=== PATIENT | female | born 1960 | race Caucasian/White ===

== ENCOUNTER 2021-07-21 12:50 | Inpatient (IN) | payer MEDICARE, MEDICAID ==
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
[2021-07-21 13:37] LABS: AMPHETAMINES,URINE NEGATIVE (NEGATIVE); BARBITURATES,URINE NEGATIVE (NEGATIVE); BENZODIAZEPINE,URINE POSITIVE (NEGATIVE); MDMA (ECSTASY), URINE NEGATIVE (NEGATIVE); METHADONE,URINE POSITIVE (NEGATIVE); METHAMPHETAMINES,URINE NEGATIVE (NEGATIVE); OPIATES,URINE POSITIVE (NEGATIVE); OXYCODONE,URINE NEGATIVE (NEGATIVE); PHENCYCLIDINE,URINE NEGATIVE (NEGATIVE); TCA,URINE NEGATIVE (NEGATIVE)
[2021-07-21] MEDS ORDERED: Sodium Chloride 0.9% 1,000 ML IV ONE (13:40)
[2021-07-21] MEDS ORDERED: cloNIDine 0.1 MG Tab PO ONE (13:47)
[2021-07-21] MEDS ORDERED: Famotidine 20 MG/2 ML SDV IVPUSH ONE (13:47)
[2021-07-21] MEDS ORDERED: Dicyclomine 10 MG Cap PO ONE (13:49)
[2021-07-21] MEDS ORDERED: Orphenadrine 60 MG/2 ML Inj IM ONE (13:49)
[2021-07-21 14:14] LABS: PTT,PARTIAL THROMBOPLSTIN TIME 25.9 SEC (22.0-34.0)
[2021-07-21 14:22] LABS: ACETAMINOPHEN 28 ug/mL (10-30 (Therapeutic)); ANION GAP 14.1 mEq/L (7-13); CHLORIDE,CL 96 mmol/L (98-107); SODIUM,NA 134 mmol/L (136-145)
[2021-07-21] MEDS ORDERED: Sucralfate 1 GM Tab PO ONE (17:00)
[2021-07-21] MEDS ORDERED: Aluminum Hydroxide/Magnesium Hydroxide/Simethicone Susp 30 ML Cup PO ONE (17:00)
[2021-07-21] MEDS ORDERED: Pantoprazole 40 MG Vial IVPUSH ONE (17:01)
[2021-07-21] MEDS ORDERED: Acetaminophen/HYDROcodone 325-5 MG Tab PO ONE (19:19)
[2021-07-21] MEDS ORDERED: LORazepam 2 MG/ML SDV IVPUSH ONE (19:19)
[2021-07-21] MEDS ORDERED: Acetaminophen 325 MG Tab PO PRN (20:09)
[2021-07-21] MEDS ORDERED: Promethazine 25 MG Tab PO PRN (20:13)
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
[2021-07-21] MEDS: ClonazePAM 0.5 MG Tab PO SCH (21:01)
[2021-07-21] MEDS: cloNIDine 0.1 MG Tab PO SCH (21:01)
[2021-07-21] MEDS: Sodium Chloride 0.9% 1,000 ML IV SCH (21:02)
[2021-07-21] MEDS: Ondansetron 4 MG/2 ML SDV IVPUSH PRN (21:02)
[2021-07-21] MEDS: Ketorolac 30 MG/ML SDV IVPUSH PRN (21:02)
[2021-07-21] MEDS ORDERED: ALPRAZolam 0.5 MG Tab PO ONE (21:56)
[2021-07-22] MEDS: Acetaminophen/oxyCODONE 325-5 MG Tab PO PRN ×2 (00:09→08:03)
[2021-07-22] MEDS: cloNIDine 0.1 MG Tab PO SCH (03:53)
[2021-07-22] MEDS: ClonazePAM 0.5 MG Tab PO SCH (03:54)
[2021-07-22] MEDS: Ketorolac 30 MG/ML SDV IVPUSH PRN ×2 (03:54→09:58)
[2021-07-22] MEDS: Sodium Chloride 0.9% 1,000 ML IV SCH (03:54)
[2021-07-22] MEDS ORDERED: Pantoprazole 40 MG Tab.CR PO SCH (06:00)
[2021-07-22] MEDS ORDERED: Nicotine 7 MG/24 Hr Patch TRDERM SCH (09:00)
[2021-07-22] MEDS ORDERED: Enoxaparin 40 MG/0.4 ML Syringe SUBCUT SCH (09:00)
[2021-07-22] MEDS: Ondansetron 4 MG/2 ML SDV IVPUSH PRN (09:55)
--- NOTE | 2021-07-22 10:29 | PCM.DCSUM1 ---
Discharge Summary - Hospital Course Free Text/Narrative:: Pt brought to ER for suicidal, making multiple threats of killing herself by opiate and benzodiazepine overdose. Pt has also began having hallucinations recently. Pt has a 20 year history of opiate dependence, on methadone ( 40 mg daily? ) for many years. She also has chronically been on Xanax 1 mg BID, and Restoril at night. Pt states that she quit taking Methadone about 10 days and she start to have withdrawal symptoms afterwards. Pt admits to opiate withdrawal symptoms of sweats, nausea, burning abdominal pain, and insomnia. As per the ER note, Pt needs medical detox from opiates, and benzodiazepines prior to further mental health evaluation. Pt was legally detained [facility]. Pt was treated symptomatically overnight and she is feeling much better today. She was cleared by mental health today and pt said that she is not interested to go for detox because she is going to get her narcotic pain medication ( Hydrocodone, Xanax and Restoril) from her provider. Pt left AMA. - Discharge Data Discharge Date: 07/22/21 Discharge Disposition: Against Medical Advice 07 Condition: Good - Referral to Home Health Primary Care Physician: PCP None - Patient Summary/Data Consults: Consultations 07/21/21 13:08 Consult to Behavioral Health [Behavioral Health Evaluation] [CONS] Routine - Discharge Plan *PRESCRIPTION DRUG MONITORING PROGRAM REVIEWED*: No *COPY OF PRESCRIPTION DRUG MONITORING REPORT IN PATIENT PARMJIT: No Home Medications: Home Meds Ibuprofen 200 mg PO Q6H 07/21/21 [History] Acetaminophen [Tylenol] 650 mg PO Q4H PRN tablet 07/22/21 [Rx] Nicotine [Habitrol] 7 mg TRDERM DAILY patch 07/22/21 [Rx] Forms: ED Department Discharge Referrals: PCP,None [Primary Care Provider] - - Discharge Summary/Plan Comment DC Time >30 min.: No Total # of Minutes for Discharge Time: 25 min - General Info Date of Service: 07/22/21 Functional Status: Reports: Pain Controlled, Tolerating Diet, Ambulating - Review of Systems General: Denies: Fever Pulmonary: Denies: Shortness of Breath Cardiovascular: Denies: Chest Pain Gastrointestinal: Denies: Abdominal Pain, Nausea, Vomiting Genitourinary: Denies: Dysuria Skin: Reports: No Symptoms Neurological: Reports: No Symptoms Psychiatric: Reports: No Symptoms - Patient Data Vitals - Most Recent: Last Vital Signs Temp 98.4 F 07/22/21 08:00 Pulse 77 07/22/21 08:00 Resp 16 07/22/21 08:00 BP 154/73 H 07/22/21 08:00 Pulse Ox 97 07/22/21 08:00 Weight - Most Recent: 111 lb 3.2 oz I&O - Last 24 hours: Intake & Output 07/21/21 07/22/21 07/22/21 22:59 06:59 14:59 Intake Total 1000 Balance 1000 Lab Results - Last 24 hrs: Laboratory Results - last 24 hr 07/21/21 07/21/21 07/21/21 Range/Units 12:33 13:13 13:13 WBC (5.0-10.0) 10^3/uL RBC (4.2-5.4) 10^6/uL Hgb (12.0-16.0) g/dL Hct (37.0-47.0) % MCV (80-100) fL MCH (27.0-34.0) pg MCHC (33.0-35.0) g/dL Plt Count (150-450) 10^3/uL Neut % (Auto) (42.2-75.2) % Lymph % (Auto) (20.5-50.1) % [place] % (Auto) (2-8) % Eos % (Auto) (1.0-3.0) % Baso % (Auto) (0.0-1.0) % PT (9.0-12.0) SEC INR (0.9-1.2) APTT (22.0-34.0) SEC Sodium (136-145) mmol/L Potassium (3.5-5.1) mmol/L Chloride (98-107) mmol/L Carbon Dioxide (21-32) mmol/L Anion Gap (7-13) mEq/L BUN (7-18) mg/dL Creatinine (0.55-1.02) mg/dL Est Cr Clr Drug Dosing mL/min Estimated GFR (MDRD) BUN/Creatinine Ratio (No establ ref range) Glucose (70-99) mg/dL Calcium (8.5-10.1) mg/dL Magnesium (1.8-2.4) mg/dL Total Bilirubin (0.2-1.0) mg/dL AST (15-37) U/L ALT (14-59) U/L Alkaline Phosphatase (46-116) U/L Total Protein (6.4-8.2) g/dL Albumin (3.4-5.0) g/dL Globulin Albumin/Globulin Ratio Amylase (25-115) U/L Lipase (73-393) U/L TSH, Ultra Sensitive (0.36-3.74) uIU/mL Urine Color Yellow (YELLOW) Urine Appearance Clear (CLEAR) Urine pH 5.5 (5.0-9.0) Ur Specific [place] 1.015 (1.005-1.030) Urine Protein Negative (NEGATIVE) Urine Glucose (UA) Negative (NEGATIVE) Urine Ketones Negative (NEGATIVE) Urine Occult Blood Negative (NEGATIVE) Urine Nitrite Negative (NEGATIVE) Urine Bilirubin Negative (NEGATIVE) Urine Urobilinogen 0.2 (0.2-1.0) mg/dL Ur Leukocyte Esterase Trace H (NEGATIVE) Urine RBC Not seen (0-5) /HPF Urine WBC 0-5 (0-5/HPF) /HPF Ur Epithelial Cells Few (NOT SEEN) /HPF Urine Bacteria Rare (0-FEW/HPF) /HPF Salicylates (2.8-20(Therapeutic)) mg/dL Urine Opiates Screen Positive H (NEGATIVE) Ur Oxycodone Screen Negative (NEGATIVE) Urine Methadone Screen Positive H (NEGATIVE) Acetaminophen (10-30 (Therapeutic)) ug/mL Ur Barbiturates Screen Negative (NEGATIVE) U Tricyclic Antidepress Negative (NEGATIVE) Ur Phencyclidine Scrn Negative (NEGATIVE) Ur Amphetamine Screen Negative (NEGATIVE) U Methamphetamines Scrn Negative (NEGATIVE) Urine MDMA Screen Negative (NEGATIVE) U Benzodiazepines Scrn Positive H (NEGATIVE) Urine Cocaine Screen Negative (NEGATIVE) U Marijuana (THC) Screen Negative (NEGATIVE) Ethyl Alcohol (0) mg/dL SARS-CoV-2 RNA (MERLY) Negative (NEGATIVE) 07/21/21 07/21/21 07/21/21 Range/Units 13:22 13:45 13:45 WBC 8.4 (5.0-10.0) 10^3/uL RBC 5.69 H (4.2-5.4) 10^6/uL Hgb 18.3 H (12.0-16.0) g/dL Hct 54.3 H (37.0-47.0) % MCV 95.4 (80-100) fL MCH 32.2 (27.0-34.0) pg MCHC 33.7 (33.0-35.0) g/dL Plt Count 179 (150-450) 10^3/uL Neut % (Auto) 61.7 (42.2-75.2) % Lymph % (Auto) 23.7 (20.5-50.1) % [place] % (Auto) 10.9 H (2-8) % Eos % (Auto) 3.2 H (1.0-3.0) % Baso % (Auto) 0.5 (0.0-1.0) % PT 10.1 (9.0-12.0) SEC INR 1.0 (0.9-1.2) APTT 25.9 (22.0-34.0) SEC Sodium 134 L (136-145) mmol/L Potassium 4.1 (3.5-5.1) mmol/L Chloride 96 L (98-107) mmol/L Carbon Dioxide 28 (21-32) mmol/L Anion Gap 14.1 H (7-13) mEq/L BUN 14 (7-18) mg/dL Creatinine 0.46 L (0.55-1.02) mg/dL Est Cr Clr Drug Dosing 94.59 mL/min Estimated GFR (MDRD) > 60 BUN/Creatinine Ratio 30.4 (No establ ref range) Glucose 81 (70-99) mg/dL Calcium 9.1 (8.5-10.1) mg/dL Magnesium 1.9 (1.8-2.4) mg/dL Total Bilirubin 0.4 (0.2-1.0) mg/dL AST 17 (15-37) U/L ALT 48 (14-59) U/L Alkaline Phosphatase 72 (46-116) U/L Total Protein 7.0 (6.4-8.2) g/dL Albumin 4.2 (3.4-5.0) g/dL Globulin 2.8 Albumin/Globulin Ratio 1.5 Amylase 61 (25-115) U/L Lipase 71 L (73-393) U/L TSH, Ultra Sensitive 2.47 (0.36-3.74) uIU/mL Urine Color (YELLOW) Urine Appearance (CLEAR) Urine pH (5.0-9.0) Ur Specific [place] (1.005-1.030) Urine Protein (NEGATIVE) Urine Glucose (UA) (NEGATIVE) Urine Ketones (NEGATIVE) Urine Occult Blood (NEGATIVE) Urine Nitrite (NEGATIVE) Urine Bilirubin (NEGATIVE) Urine Urobilinogen (0.2-1.0) mg/dL Ur Leukocyte Esterase (NEGATIVE) Urine RBC (0-5) /HPF Urine WBC (0-5/HPF) /HPF Ur Epithelial Cells (NOT SEEN) /HPF Urine Bacteria (0-FEW/HPF) /HPF Salicylates (2.8-20(Therapeutic)) mg/dL Urine Opiates Screen (NEGATIVE) Ur Oxycodone Screen (NEGATIVE) Urine Methadone Screen (NEGATIVE) Acetaminophen 28 (10-30 (Therapeutic)) ug/mL Ur Barbiturates Screen (NEGATIVE) U Tricyclic Antidepress (NEGATIVE) Ur Phencyclidine Scrn (NEGATIVE) Ur Amphetamine Screen (NEGATIVE) U Methamphetamines Scrn (NEGATIVE) Urine MDMA Screen (NEGATIVE) U Benzodiazepines Scrn (NEGATIVE) Urine Cocaine Screen (NEGATIVE) U Marijuana (THC) Screen (NEGATIVE) Ethyl Alcohol < 3 (0) mg/dL SARS-CoV-2 RNA (MERLY) (NEGATIVE) 07/21/21 Range/Units 13:45 WBC (5.0-10.0) 10^3/uL RBC (4.2-5.4) 10^6/uL Hgb (12.0-16.0) g/dL Hct (37.0-47.0) % MCV (80-100) fL MCH (27.0-34.0) pg MCHC (33.0-35.0) g/dL Plt Count (150-450) 10^3/uL Neut % (Auto) (42.2-75.2) % Lymph % (Auto) (20.5-50.1) % [place] % (Auto) (2-8) % Eos % (Auto) (1.0-3.0) % Baso % (Auto) (0.0-1.0) % PT (9.0-12.0) SEC INR (0.9-1.2) APTT (22.0-34.0) SEC Sodium (136-145) mmol/L Potassium (3.5-5.1) mmol/L Chloride (98-107) mmol/L Carbon Dioxide (21-32) mmol/L Anion Gap (7-13) mEq/L BUN (7-18) mg/dL Creatinine (0.55-1.02) mg/dL Est Cr Clr Drug Dosing mL/min Estimated GFR (MDRD) BUN/Creatinine Ratio (No establ ref range) Glucose (70-99) mg/dL Calcium (8.5-10.1) mg/dL Magnesium (1.8-2.4) mg/dL Total Bilirubin (0.2-1.0) mg/dL AST (15-37) U/L ALT (14-59) U/L Alkaline Phosphatase (46-116) U/L Total Protein (6.4-8.2) g/dL Albumin (3.4-5.0) g/dL Globulin Albumin/Globulin Ratio Amylase (25-115) U/L Lipase (73-393) U/L TSH, Ultra Sensitive (0.36-3.74) uIU/mL Urine Color (YELLOW) Urine Appearance (CLEAR) Urine pH (5.0-9.0) Ur Specific [place] (1.005-1.030) Urine Protein (NEGATIVE) Urine Glucose (UA) (NEGATIVE) Urine Ketones (NEGATIVE) Urine Occult Blood (NEGATIVE) Urine Nitrite (NEGATIVE) Urine Bilirubin (NEGATIVE) Urine Urobilinogen (0.2-1.0) mg/dL Ur Leukocyte Esterase (NEGATIVE) Urine RBC (0-5) /HPF Urine WBC (0-5/HPF) /HPF Ur Epithelial Cells (NOT SEEN) /HPF Urine Bacteria (0-FEW/HPF) /HPF Salicylates 4.7 (2.8-20(Therapeutic)) mg/dL Urine Opiates Screen (NEGATIVE) Ur Oxycodone Screen (NEGATIVE) Urine Methadone Screen (NEGATIVE) Acetaminophen (10-30 (Therapeutic)) ug/mL Ur Barbiturates Screen (NEGATIVE) U Tricyclic Antidepress (NEGATIVE) Ur Phencyclidine Scrn (NEGATIVE) Ur Amphetamine Screen (NEGATIVE) U Methamphetamines Scrn (NEGATIVE) Urine MDMA Screen (NEGATIVE) U Benzodiazepines Scrn (NEGATIVE) Urine Cocaine Screen (NEGATIVE) U Marijuana (THC) Screen (NEGATIVE) Ethyl Alcohol (0) mg/dL SARS-CoV-2 RNA (MERLY) (NEGATIVE) JARETH Results - Last 24 hrs: Microbiology 07/21/21 13:13 Urine Culture - Preliminary Urine, Clean Catch MIXED POSITIVE YASMEEN DAY 1 Med Orders - Current: Current Medications Acetaminophen (Acetaminophen 325 Mg Tab) 650 mg PO Q4H PRN PRN Reason: Pain (Mild 1-3)/fever Clonazepam (Clonazepam 0.5 Mg Tab) 0.5 mg PO Q8H [facility] Last Admin: 07/22/21 03:54 Dose: 0.5 mg Documented by: Clonidine HCl (Clonidine 0.1 Mg Tab) 0.1 mg PO Q8H [facility] Last Admin: 07/22/21 03:53 Dose: 0.1 mg Documented by: Enoxaparin Sodium (Enoxaparin 40 Mg/0.4 Ml Syringe) 40 mg SUBCUT DAILY [facility] Last Admin: 07/22/21 09:37 Dose: Not Given Documented by: Ketorolac Tromethamine (Ketorolac 30 Mg/Ml Sdv) 30 mg IVPUSH Q6H PRN PRN Reason: Pain Stop: 07/26/21 20:13 Last Admin: 07/22/21 09:58 Dose: 30 mg Documented by: Miscellaneous Information (Remove Nicotine 7mg Patch) 1 ea TRDERM DAILY [facility] Nicotine (Nicotine 7 Mg/24 Hr Patch) 7 mg TRDERM DAILY [facility] Last Admin: 07/22/21 09:37 Dose: Not Given Documented by: Ondansetron HCl (Ondansetron 4 Mg/2 Ml Sdv) 4 mg IVPUSH Q6H PRN PRN Reason: Nausea/Vomiting Last Admin: 07/22/21 09:55 Dose: 4 mg Documented by: Oxycodone/Acetaminophen (Acetaminophen/Oxycodone 325-5 Mg Tab) 1 tab PO Q4H PRN PRN Reason: Pain (moderate 4-6) Last Admin: 07/22/21 08:03 Dose: 1 tab Documented by: Pantoprazole Sodium (Pantoprazole 40 Mg Tab.Cr) 40 mg PO BIDAC [facility] Last Admin: 07/22/21 05:42 Dose: 40 mg Documented by: Promethazine HCl (Promethazine 25 Mg Tab) 25 mg PO Q6H PRN PRN Reason: Nausea/Vomiting Discontinued Medications Hydrocodone Bitart/Acetaminophen (Acetaminophen/Hydrocodone 325-5 Mg Tab) 1 tab PO ONETIME ONE Stop: 07/21/21 19:20 Last Admin: 07/21/21 19:33 Dose: 1 tab Documented by: Al Hydroxide/Mg Hydroxide (Aluminum Hydroxide/Magnesium Hydroxide/Simethicone Susp 30 Ml Cup) 30 ml PO ONETIME ONE Stop: 07/21/21 17:01 Last Admin: 07/21/21 17:21 Dose: 30 ml Documented by: Alprazolam (Alprazolam 0.5 Mg Tab) 1 mg PO ONETIME ONE Stop: 07/21/21 21:57 Last Admin: 07/21/21 22:04 Dose: 1 mg Documented by: Clonidine HCl (Clonidine 0.1 Mg Tab) 0.1 mg PO ONETIME ONE Stop: 07/21/21 13:48 Last Admin: 07/21/21 14:18 Dose: 0.1 mg Documented by: Dicyclomine HCl (Dicyclomine 10 Mg Cap) 20 mg PO ONETIME ONE Stop: 07/21/21 13:50 Last Admin: 07/21/21 14:26 Dose: 20 mg Documented by: Famotidine (Famotidine 20 Mg/2 Ml Sdv) 20 mg IVPUSH ONETIME ONE Stop: 07/21/21 13:48 Last Admin: 07/21/21 14:09 Dose: 20 mg Documented by: Sodium Chloride (Normal Saline) 1,000 mls @ 999 mls/hr IV .BOLUS ONE Stop: 07/21/21 14:40 Last Admin: 07/21/21 14:08 Dose: 999 mls/hr Documented by: Sodium Chloride (Normal Saline) 1,000 mls @ 125 mls/hr IV ASDIRECTED AILYN Last Infusion: 07/22/21 09:38 Dose: 0 mls/hr Documented by: Lorazepam (Lorazepam 2 Mg/Ml Sdv) 1 mg IVPUSH ONETIME ONE Stop: 07/21/21 19:20 Last Admin: 07/21/21 19:33 Dose: 1 mg Documented by: Orphenadrine Citrate (Orphenadrine 60 Mg/2 Ml Inj) 60 mg IM ONETIME ONE Stop: 07/21/21 13:50 Last Admin: 07/21/21 14:11 Dose: 60 mg Documented by: Pantoprazole Sodium (Pantoprazole 40 Mg Vial) 40 mg IVPUSH ONETIME ONE Stop: 07/21/21 17:02 Last Admin: 07/21/21 17:14 Dose: 40 mg Documented by: Sucralfate (Sucralfate 1 Gm Tab) 1 gm PO ONETIME ONE Stop: 07/21/21 17:01 Last Admin: 07/21/21 17:40 Dose: 1 gm Documented by: - Exam Quality Assessment: Denies: Supplemental Oxygen General: Reports: Alert, Oriented, Cooperative HEENT: Reports: EOMI Lungs: Reports: Normal Respiratory Effort Cardiovascular: Reports: Regular Rhythm, No Murmurs GI/Abdominal Exam: Soft, Non-Tender Extremities: Normal Inspection, No Pedal Edema Skin: Reports: Warm, Dry Wound/Incisions: Reports: Healing Well Neurological: Reports: No New Focal Deficit Psy/Mental Status: Reports: Alert, Normal Affect
== END 2021-07-22 10:41 | disposition left against medical advice (07) | DRG 894 ==
LOC: DL.ED 12:50 → DL.MS 16:55 → UNDOADMIN 16:55 → DL.ED 17:24 → DL.MS 20:09
PROVIDERS: ADMIT Internal Medicine; ATTEND Internal Medicine
DX: F11.222 Opioid dependence with intoxication with perceptual disturbance (principal); F11.23 Opioid dependence with withdrawal; R45.851 Suicidal ideations; F32.9 Major depressive disorder, single episode, unspecified; R10.13 Epigastric pain; F13.20 Sedative, hypnotic or anxiolytic dependence, uncomplicated; F15.23 Other stimulant dependence with withdrawal; Z20.822 Contact with and (suspected) exposure to COVID-19; H54.7 Unspecified visual loss; K21.9 Gastro-esophageal reflux disease without esophagitis; J44.9 Chronic obstructive pulmonary disease, unspecified; M19.90 Unspecified osteoarthritis, unspecified site; M54.9 Dorsalgia, unspecified; G89.29 Other chronic pain; F41.9 Anxiety disorder, unspecified; F32.A Depression, unspecified; F17.200 Nicotine dependence, unspecified, uncomplicated; Z90.49 Acquired absence of other specified parts of digestive tract; Z88.6 Allergy status to analgesic agent; Z79.899 Other long term (current) drug therapy; Z88.8 Allergy status to other drugs, medicaments and biological substances
CPT/HCPCS: 36415; 80053; 80143; 80179; 80305-QW; 80307; 81001; 82150; 83690; 83735; 84443; 85025; 85610; 85730; 87086; 96372; 96374; 99285-25; A9270-GY; C9113; J1885; J2060; J2360; J2405; J3490; J7030; U0002

== ENCOUNTER 2021-07-26 11:00 | Emergency (ER) | payer MEDICARE ==
[2021-07-26] MEDS ORDERED: Ketorolac 30 MG/ML SDV IM ONE (11:29)
[2021-07-26] MEDS ORDERED: Promethazine 25 MG/ML SDV IM ONE (11:29)
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
[2021-07-26] MEDS ORDERED: Iopamidol 612 MG/ML 100 ML Bottle IVPUSH ONE (11:47)
[2021-07-26 12:43] LABS: AMPHETAMINES,URINE NEGATIVE (NEGATIVE); BARBITURATES,URINE NEGATIVE (NEGATIVE); BENZODIAZEPINE,URINE POSITIVE (NEGATIVE); MDMA (ECSTASY), URINE NEGATIVE (NEGATIVE); METHADONE,URINE NEGATIVE (NEGATIVE); METHAMPHETAMINES,URINE NEGATIVE (NEGATIVE); OPIATES,URINE NEGATIVE (NEGATIVE); OXYCODONE,URINE NEGATIVE (NEGATIVE); PHENCYCLIDINE,URINE NEGATIVE (NEGATIVE); TCA,URINE NEGATIVE (NEGATIVE)
[2021-07-26 12:45] LABS: ANION GAP 15.7 mEq/L (7-13); CHLORIDE,CL 96 mmol/L (98-107); SODIUM,NA 137 mmol/L (136-145)
--- NOTE | 2021-07-26 13:05 | CT ---
PROCEDURE INFORMATION: Exam: CT Abdomen And Pelvis With Contrast Exam date and time: 07/26/2021 12:00 PM Age: 60 years old Clinical indication: Nausea; Abdominal pain; Generalized; Prior surgery; Surgery date: 6+ months; Surgery type: Appendectomy, bowel surgery; Patient HX: HX of bowel surgeries for "twisted bowel"; Additional info: Diffuse abdominal pain; Nausea TECHNIQUE: Imaging protocol: Computed tomography of the abdomen and pelvis with contrast. Radiation optimization: All CT scans at this facility use at least one of these dose optimization techniques: automated exposure control; mA and/or kV adjustment per patient size (includes targeted exams where dose is matched to clinical indication); or iterative reconstruction. Contrast material: ISOVUE 300; Contrast volume: 75 ml; Contrast route: INTRAVENOUS (IV); COMPARISON: No relevant prior studies available. FINDINGS: Liver: Normal. No mass. Gallbladder and bile ducts: Moderate gallbladder distension. No visualized gallbladder filling defects. No ductal dilation. Pancreas: Normal. No ductal dilation. Spleen: Normal. No splenomegaly. Adrenal glands: Normal. No mass. Kidneys and ureters: Normal. No hydronephrosis. Stomach and bowel: No obstruction. No mucosal thickening. There is moderate stool retention predominating in the right colon. Appendix: Appendectomy. Intraperitoneal space: Unremarkable. No free air. No significant fluid collection. Vasculature: Aortoiliac moderate atherosclerotic calcific. No abdominal aortic aneurysm. Lymph nodes: Unremarkable. No enlarged lymph nodes. Urinary bladder: Unremarkable as visualized. Reproductive: Unremarkable as visualized. Bones/joints: L4-L5 congenital block vertebra. L5-S1 degenerative disc disease No acute fracture. Bilateral degenerative disease. Soft tissues: Small fat filled umbilical hernia. IMPRESSION: 1. No acute findings. 2. Moderate stool load. No bowel obstruction. 3. Moderate gallbladder distension. If right upper quadrant pain consider gallbladder ultrasound.
[2021-07-26] MEDS ORDERED: Lisinopril 10 MG Tab PO ONE (13:35)
[2021-07-26] MEDS ORDERED: Sulfamethoxazole/Trimethoprim 800-160 MG Tab PO ONE (13:37)
[2021-07-26] MEDS ORDERED: Sulfamethoxazole/Trimethoprim 800-160 MG Tab ONE (15:04)
[2021-07-26] MEDS ORDERED: cloNIDine 0.1 MG Tab PO ONE (15:04)
[2021-07-26] MEDS ORDERED: Acetaminophen/oxyCODONE 325-5 MG Tab PO ONE (15:55)
== END 2021-07-26 16:20 | disposition home or self-care (01) ==
LOC: DL.ED 11:00
DX: N30.01 Acute cystitis with hematuria (principal); K42.9 Umbilical hernia without obstruction or gangrene; K59.00 Constipation, unspecified; K82.8 Other specified diseases of gallbladder; J44.9 Chronic obstructive pulmonary disease, unspecified; Z88.8 Allergy status to other drugs, medicaments and biological substances
CPT/HCPCS: 36415; 74177; 80053; 80305; 80307; 81001; 82150; 83605; 83690; 83735; 85025; 86140; 87086; 96372; 99284; A9270; J1885; J2550; Q9967

== ENCOUNTER 2021-07-27 13:26 | Observation (INO) | payer MEDICARE ==
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
[2021-07-27 14:22] LABS: ANION GAP 15.9 mEq/L (7-13); CHLORIDE,CL 94 mmol/L (98-107); SODIUM,NA 134 mmol/L (136-145)
[2021-07-27 14:24] LABS: ACETAMINOPHEN 0 ug/mL (10-30 (Therapeutic))
[2021-07-27 16:05] LABS: AMPHETAMINES,URINE NEGATIVE (NEGATIVE); BARBITURATES,URINE NEGATIVE (NEGATIVE); BENZODIAZEPINE,URINE POSITIVE (NEGATIVE); MDMA (ECSTASY), URINE NEGATIVE (NEGATIVE); METHADONE,URINE NEGATIVE (NEGATIVE); METHAMPHETAMINES,URINE NEGATIVE (NEGATIVE); OPIATES,URINE NEGATIVE (NEGATIVE); PHENCYCLIDINE,URINE NEGATIVE (NEGATIVE); TCA,URINE NEGATIVE (NEGATIVE)
[2021-07-27 16:06] LABS: OXYCODONE,URINE POSITIVE (NEGATIVE)
--- NOTE | 2021-07-27 16:09 | CT ---
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 Scan technique: Volume acquisition of data from the lower thoracic/entire lumbar spine and sacrum obtained with the patient lying supine on the Siemens multislice scanner [place], [place]. All data archived in the PACS system for storage, reformatting axial/sagittal/coronal planes and study. Interpretation: 1. Block fusion of the L4 and L5 vertebral bodies i.e. complete loss of the intervertebral disc space with spondylosis. 2. No evidence of laminectomy or other surgery suggesting congenital fusion. 3. Extensive, severe reactive sclerosis of the posterior articulating facets at multiple levels. 4. No sign of pathologic skeletal lesion, fracture or spondylolisthesis lumbar spine. 5. Flattening the intervertebral disks with associated endplate sclerosis and gas of the nucleus pulposus at the L3-4, and L5-S1 levels indicate chronic lumbar disc degeneration. 6. Symmetric spacing normal-appearing SI and hip joints. 7. Atheromatous "cast" normal caliber aortoiliac vessels. Sigmoid diverticulosis. 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 Multilevel mid/lower lumbar disc degeneration. Chronic arthritis.
--- NOTE | 2021-07-27 16:14 | CT ---
EXAMINATION: Pelvis wo Cont SEX: Female AGE: 60 years CLINICAL HISTORY: 60-year-old female chronic low back pain and right sided sciatica (neuropathy). 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 Scan technique: Volume acquisition of data from the lower lumbar spine, pelvis and both hips obtained without oral or IV contrast while patient was lying supine on the Siemens multislice scanner [place], [place]. All data archived in the PACS system for storage, reformatting axial/sagittal/coronal planes and study. Interpretation: Osteopenia consistent with age. L4-5 block effusion. Chronic L3 S4 and L5-S1 disc degeneration. Arthritis. Homogeneous normal bone density. No sign of pathologic skeletal lesion, pelvic or either hip fracture/dislocation. Sclerosis and marginal spur formation both hips (arthritis) but relatively symmetric joint space without degenerative subchondral cystic lesions. No foreign bodies. Sigmoid diverticulosis. CONCLUSION: No fractures or dislocation. Osteoarthritic degenerative changes both hip joints, mild.
[2021-07-27] MEDS ORDERED: Ketorolac 30 MG/ML SDV IVPUSH ONE (17:11)
[2021-07-27] MEDS ORDERED: Ketorolac 30 MG/ML SDV IM ONE (17:20)
[2021-07-27] MEDS ORDERED: Haloperidol Lactate 5 MG/ML SDV IVPUSH ONE (21:00)
[2021-07-27] MEDS ORDERED: HYDROmorphone 0.5 MG/0.5 ML Syringe IVPUSH ONE (21:00)
[2021-07-28] MEDS ORDERED: HYDROmorphone 0.5 MG/0.5 ML Syringe IVPUSH ONE (00:07)
--- NOTE | 2021-07-28 00:37 | CR ---
PROCEDURE INFORMATION: Exam: XR Right Toe(s) Exam date and time: 07/27/2021 11:07 PM Age: 60 years old Clinical indication: Pain; Toes; Right; Additional info: Swollen toe, 07/19 pain TECHNIQUE: Imaging protocol: XR Right toes. Views: Minimum 2 views. COMPARISON: No relevant prior studies available. FINDINGS: Bones/joints: No fracture. No osteolytic or destructive bone lesions. No arthritic changes. No dislocation. Soft tissues: No soft tissue swelling or gas. No foreign body. IMPRESSION: Unremarkable bones, joints, and soft tissues of the right great toe.
[2021-07-28] MEDS ORDERED: HYDROmorphone 1 MG/ML Syringe IVPUSH ONE (03:14)
[2021-07-28 09:22] LABS: CHLORIDE,CL 96 mmol/L (98-107); SODIUM,NA 136 mmol/L (136-145)
[2021-07-28] MEDS ORDERED: Lactated Ringers 1,000 ML IV ONE (10:35)
[2021-07-28] MEDS ORDERED: Ondansetron 4 MG Tab.DIS PO PRN (10:35)
[2021-07-28] MEDS: Baclofen 10 MG Tab PO SCH ×2 (11:11→21:03)
[2021-07-28] MEDS: OLANZapine 5 MG Tab PO SCH ×2 (11:11→21:03)
[2021-07-28] MEDS: cloNIDine 0.1 MG Tab PO SCH ×2 (11:14→21:02)
[2021-07-28] MEDS: ceFAZolin 1 GM in Sodium Chloride 0.9% 50 ML IV SCH ×2 (12:37→21:15)
[2021-07-28] MEDS: Acetaminophen 325 MG Tab PO PRN ×2 (14:51→21:04)
[2021-07-28] MEDS ORDERED: Sodium Chloride 0.9% 10 ML Syringe FLUSH PRN (16:00)
[2021-07-28] MEDS ORDERED: Melatonin 3 MG Tab PO ONE (21:00)
[2021-07-29] MEDS: ceFAZolin 1 GM in Sodium Chloride 0.9% 50 ML IV SCH (05:29)
[2021-07-29] MEDS: Acetaminophen 325 MG Tab PO PRN ×2 (05:50→12:57)
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
[2021-07-29] MEDS: Baclofen 10 MG Tab PO SCH (08:40)
[2021-07-29] MEDS: OLANZapine 5 MG Tab PO SCH (08:40)
[2021-07-29] MEDS: cloNIDine 0.1 MG Tab PO SCH (08:40)
--- NOTE | 2021-07-29 11:57 | PCM.DCSUM1 ---
Discharge Summary - Hospital Course Free Text/Narrative:: Thalia is a 60-year-old woman admitted 2 days ago on a psychiatric crisis hold from the ED. She has a severe issue with degeneration of her lumbar spine. She has significant loss of disc height at both L4 and L5, and has severe radicular symptoms into her right leg. She has been on long-term pain medication because of her spinal issues. She recently moved back home here from [place]. She was on long-term methadone, as well as both daily temazepam and as needed Xanax. On 2 different assessments over the last 14 days, she has been noted to be abusing that Xanax. Reports from family also state that she does not take them as prescribed. Decision was made to admit her to have her stop the benzodiazepines, and monitor her for 48 hours to make sure she does not go into delirium tremens. Hospital day #0 into hospital day #1, she did have significant difficulty with severe anxiety as well as agitation. She did well on oral clonidine, oral baclofen, and oral olanzapine. By the this morning, hospital day #2, she was much more calm, was able to have a better conversation with us without significant anxiety or pressuring with her speech. She did not show any signs or symptoms of delirium tremens during her hospital stay here. Planning made through our crisis forensic social worker is to get her discharged to a residential treatment unit here in [place], with follow-up with her primary care provider as well. - Discharge Data Discharge Date: 07/29/21 Discharge Disposition: DC/Tfer to Psych Hosp/Unit 65 Condition: Good - Referral to Home Health Date of Face to Face Encounter: 07/29/21 Primary Care Physician: Timothy Padilla PA-C - Discharge Diagnosis/Problem(s) (1) Benzodiazepine dependence, continuous SNOMED Code(s): 950608222, [id number] ICD Code: F13.20 - SEDATIVE, HYPNOTIC OR ANXIOLYTIC DEPENDENCE, UNCOMPLICATED Status: Acute Current Visit: Yes (2) Opiate dependence, continuous SNOMED Code(s): 098719900 ICD Code: F11.20 - OPIOID DEPENDENCE, UNCOMPLICATED Status: Acute Current Visit: Yes (3) Suicidal thoughts SNOMED Code(s): 6063004 ICD Code: R45.851 - SUICIDAL IDEATIONS Status: Acute Current Visit: Yes (4) Lumbar disc herniation with radiculopathy SNOMED Code(s): 732541401 ICD Code: M51.16 - INTERVERTEBRAL DISC DISORDERS W RADICULOPATHY, LUMBAR REGION Status: Acute Current Visit: Yes - Patient Summary/Data Consults: Consultations 07/29/21 09:20 Consult to Physical Therapy [PT Evaluation and Treatment] [CONS] Routine 07/29/21 09:21 Consult to Occupational Therapy [OT Evaluation and Treatment] [CONS] Routine - Discharge Plan *PRESCRIPTION DRUG MONITORING PROGRAM REVIEWED*: Not Applicable *COPY OF PRESCRIPTION DRUG MONITORING REPORT IN PATIENT PARMJIT: Not Applicable Home Medications: Home Meds Ibuprofen 200 mg PO Q6H 07/21/21 [History] Acetaminophen [Tylenol] 650 mg PO Q4H PRN tablet 07/22/21 [Rx] cloNIDine [Catapres] 0.2 mg PO DAILY 07/27/21 [History] Forms: ED Department Discharge - Discharge Summary/Plan Comment DC Time >30 min.: Yes Total # of Minutes for Discharge Time: 45 Discharge Summary/Plan Comment: Discharge diagnoses: 1. 60-year-old woman with longstanding severe degeneration of the lumbar spine 2. Chronic pain syndrome secondary to #1 3. History of severe major depression as well as generalized anxiety disorder 4. History of narcotic abuse secondary to #2 5. History of benzodiazepine abuse secondary to #3 Plan: 1. She is more than 48 hours from her last dose of benzodiazepines, so I am satisfied that she is not in any danger of delirium tremens at this point 2. She continues to have severe symptoms with her right leg and foot, she has an appointment later today with her primary care provider that she is established with here in [place], who will be setting up a treatment plan with her, including most likely buprenorphine treatment 3. I would strongly advise that she not be prescribed benzodiazepines any point in the future 4. She is in need of a long-term antianxiety/antidepressant medication. She responded well to the olanzapine here on her inpatient unit, so she may do well on oral Abilify at home. Another option would be a SSRI with balanced antianxiety and antidepressant properties, such as citalopram or escitalopram 5. The symptoms in her right foot are significant to the point, as above, that physical therapy is worried about her ability to ambulate safely. It was therefore there recommendation, which I agree with on a medical basis, that she requires the use of a wheeled walker for safe ambulation. She will most likely need this on a permanent basis. - General Info Date of Service: 07/29/21 Admission Dx/Problem (Free Text: Admission Diagnosis/Problem Admission Diagnosis/Problem Withdrawal from sedative drug - Patient Data Vitals - Most Recent: Last Vital Signs Temp 97.1 F 07/29/21 08:00 Pulse 106 H 07/29/21 08:00 Resp 20 07/29/21 08:00 BP 135/84 07/29/21 08:40 Pulse Ox 92 L 07/29/21 10:06 Weight - Most Recent: 110 lb I&O - Last 24 hours: Intake & Output 07/28/21 07/29/21 07/29/21 22:59 06:59 14:59 Intake Total 42 300 Balance 42 300 JARETH Results - Last 24 hrs: Microbiology 07/27/21 15:10 Urine Culture - Preliminary Urine, Voided MIXED POSITIVE YASMEEN DAY 1 07/27/21 13:54 Aerobic Blood Culture - Preliminary Blood - Arm, Left NO GROWTH AFTER 1 DAY Anaerobic Blood Culture - Preliminary NO GROWTH AFTER 1 DAY Med Orders - Current: Current Medications Acetaminophen (Acetaminophen 325 Mg Tab) 650 mg PO Q4H PRN PRN Reason: Pain Last Admin: 07/29/21 05:50 Dose: 650 mg Documented by: Baclofen (Baclofen 10 Mg Tab) 10 mg PO TID [facility] Last Admin: 07/29/21 08:40 Dose: 10 mg Documented by: Clonidine HCl (Clonidine 0.1 Mg Tab) 0.2 mg PO BID [facility] Last Admin: 07/29/21 08:40 Dose: 0.2 mg Documented by: Cefazolin Sodium 1 gm/ Sodium (Chloride) 50 mls @ 100 mls/hr IV Q8HR [facility] Last Admin: 07/29/21 05:29 Dose: 100 mls/hr Documented by: Olanzapine (Olanzapine 5 Mg Tab) 5 mg PO BID [facility] Last Admin: 07/29/21 08:40 Dose: 5 mg Documented by: Ondansetron HCl (Ondansetron 4 Mg Tab.Dis) 4 mg PO Q6H PRN PRN Reason: nausea, able to take PO Last Admin: 07/29/21 06:20 Dose: 4 mg Documented by: Sodium Chloride (Sodium Chloride 0.9% 10 Ml Syringe) 10 ml FLUSH ASDIRECTED PRN PRN Reason: Keep Vein Open Discontinued Medications Haloperidol Lactate (Haloperidol Lactate 5 Mg/Ml Sdv) 10 mg IVPUSH ONETIME ONE Stop: 07/27/21 21:01 Last Admin: 07/27/21 23:04 Dose: 10 mg Documented by: Hydromorphone HCl (Hydromorphone 0.5 Mg/0.5 Ml Syringe) 0.5 mg IVPUSH ONETIME ONE Stop: 07/27/21 21:01 Last Admin: 07/27/21 21:24 Dose: 0.5 mg Documented by: Hydromorphone HCl (Hydromorphone 0.5 Mg/0.5 Ml Syringe) 0.5 mg IVPUSH ONETIME ONE Stop: 07/28/21 00:08 Last Admin: 07/28/21 00:11 Dose: 0.5 mg Documented by: Hydromorphone HCl (Hydromorphone 1 Mg/Ml Syringe) 1 mg IVPUSH ONETIME ONE Stop: 07/28/21 03:15 Last Admin: 07/28/21 03:19 Dose: 1 mg Documented by: Lactated Ringer's (Ringers, Lactated) 1,000 mls @ 999 mls/hr IV .BOLUS ONE Stop: 07/28/21 11:35 Last Infusion: 07/28/21 12:26 Dose: Infused Documented by: Ketorolac Tromethamine (Ketorolac 30 Mg/Ml Sdv) 30 mg IVPUSH ONETIME ONE Stop: 07/27/21 17:12 Last Admin: 07/27/21 17:41 Dose: Not Given Documented by: Ketorolac Tromethamine (Ketorolac 30 Mg/Ml Sdv) 30 mg IM ONETIME ONE Stop: 07/27/21 17:21 Last Admin: 07/27/21 17:32 Dose: 30 mg Documented by: Melatonin (Melatonin 3 Mg Tab) 6 mg PO ONETIME ONE Stop: 07/28/21 21:01 Last Admin: 07/28/21 21:05 Dose: 6 mg Documented by: - Exam Physical Findings Comments:: Discharge exam: Thalia is a 60-year-old woman in no acute distress Oropharynx is clear, mucous membranes are moist Right leg: Leg appears warm and well perfused. I do note significant muscle tone in her calf as well as her ankle. Physical therapy is concerned about a dropfoot, my physical exam does not necessarily show that, but it is difficult because of her level of pain
== END 2021-07-29 14:05 ==
LOC: DL.ED 13:26 → DL.MS 07-28 09:00
PROVIDERS: ADMIT Family Medicine; ATTEND Family Medicine
DX: R45.851 Suicidal ideations (principal); J44.9 Chronic obstructive pulmonary disease, unspecified; K21.9 Gastro-esophageal reflux disease without esophagitis; F32.9 Major depressive disorder, single episode, unspecified; F17.210 Nicotine dependence, cigarettes, uncomplicated; F13.20 Sedative, hypnotic or anxiolytic dependence, uncomplicated; F11.20 Opioid dependence, uncomplicated; M51.16 Intervertebral disc disorders with radiculopathy, lumbar region; F41.1 Generalized anxiety disorder; G89.4 Chronic pain syndrome; Z20.822 Contact with and (suspected) exposure to COVID-19; Z88.8 Allergy status to other drugs, medicaments and biological substances; Z79.899 Other long term (current) drug therapy; Z90.49 Acquired absence of other specified parts of digestive tract; Z98.890 Other specified postprocedural states
CPT/HCPCS: 36415; 72131; 72192; 73660-T5; 80053; 80143; 80179; 80305-QW; 80307; 81001; 82140; 83605; 83735; 85025; 85379; 87040; 87086; 96365; 96372; 96374; 96375; 96376; 97161-GP; 99285-25; A9270-GY; G0378; J0690; J1170; J1630; J1885; J7120; U0002

== ENCOUNTER 2021-07-31 18:00 | Inpatient (IN) | payer MEDICARE ==
[2021-07-31] MEDS ORDERED: Sodium Chloride 0.9% 1,000 ML IV ONE (20:24)
[2021-07-31] MEDS ORDERED: hydrOXYzine HCl 25 MG Tab PO ONE (20:57)
[2021-07-31] MEDS ORDERED: Acetaminophen/HYDROcodone 325-5 MG Tab PO ONE (20:57)
[2021-07-31 21:09] LABS: ANION GAP 12.3 mEq/L (7-13); CHLORIDE,CL 97 mmol/L (98-107); SODIUM,NA 136 mmol/L (136-145)
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
[2021-07-31] MEDS ORDERED: Potassium Chloride 10 MEQ Tab.ER PO ONE (22:15)
[2021-08-01] MEDS ORDERED: Ondansetron 4 MG Tab.DIS PO PRN (00:03)
[2021-08-01] MEDS: Acetaminophen 325 MG Tab PO PRN (00:32)
[2021-08-01] MEDS: Melatonin 3 MG Tab PO SCH ×2 (00:32→20:17)
[2021-08-01] MEDS: Lactated Ringers 1,000 ML IV SCH ×3 (00:34→18:03)
[2021-08-01] MEDS: Ibuprofen 600 MG Tab PO PRN (04:26)
[2021-08-01 06:59] LABS: ANION GAP 15.5 mEq/L (7-13); CHLORIDE,CL 100 mmol/L (98-107); SODIUM,NA 139 mmol/L (136-145)
[2021-08-01] MEDS ORDERED: Iopamidol 612 MG/ML 50 ML SDV IVPUSH ONE (08:30)
[2021-08-01] MEDS: Enoxaparin 40 MG/0.4 ML Syringe SUBCUT SCH (09:06)
[2021-08-01] MEDS ORDERED: Buprenorphine 8 MG Tab.SL SL ONE ×3 (09:48→20:36)
[2021-08-01] MEDS: Pantoprazole 40 MG Tab.CR PO SCH (10:49)
[2021-08-01] MEDS: hydrOXYzine HCl 25 MG Tab PO SCH ×3 (10:49→22:02)
[2021-08-01] MEDS: Ondansetron 4 MG Tab.DIS PO SCH ×2 (10:50→18:04)
--- NOTE | 2021-08-01 11:27 | CT ---
PROCEDURE INFORMATION: Exam: CT Lumbar Spine With Contrast Exam date and time: 08/01/2021 9:48 AM Age: 60 years old Clinical indication: Low back pain; Additional info: Concern for cauda equina syndrome TECHNIQUE: Imaging protocol: Computed tomography images of the lumbar spine with intravenous contrast. Radiation optimization: All CT scans at this facility use at least one of these dose optimization techniques: automated exposure control; mA and/or kV adjustment per patient size (includes targeted exams where dose is matched to clinical indication); or iterative reconstruction. Contrast material: ISOVUE 300; Contrast volume: 98 ml; Contrast route: INTRAVENOUS (IV); COMPARISON: CT Lumbar Spine wo Cont 07/27/2021 2:38 PM FINDINGS: Vertebrae: Stable alignment of the lumbar spine. Prior solid fusion at L4-L5. Stable anterior wedging of L1. Diffuse osteopenia. Lower lungs bar spine facet degeneration. L1-L2: No significant disc protrusion. No severe spinal canal stenosis. No significant neural foraminal narrowing. L2-L3: No significant disc protrusion. No severe spinal canal stenosis. No significant neural foraminal narrowing. L3-L4: Mild disc degeneration. Concentric disc bulge. Mild/moderate central spinal stenosis. L4-L5: Central canal appears adequate. There is moderate narrowing of both lateral recesses secondary to uncovertebral spurring. L5-S1: Moderate stable disc degeneration. Six central canal appears adequate. Bilateral moderate lateral recess narrowing. Soft tissues: Unremarkable. IMPRESSION: 1. No significant change from prior study. 2. Mild/moderate central spinal stenosis L3-L4. 3. Bilateral moderate narrowing of the lateral recess L4-L5. 4. Consider MRI of the lumbar spine.
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
[2021-08-01] MEDS: cloNIDine 0.1 MG Tab PO SCH (20:17)
[2021-08-02] MEDS: Ondansetron 4 MG Tab.DIS PO SCH ×3 (01:58→17:33)
[2021-08-02] MEDS: Lactated Ringers 1,000 ML IV SCH ×3 (02:09→21:00)
[2021-08-02] MEDS: hydrOXYzine HCl 25 MG Tab PO SCH ×4 (04:00→21:00)
[2021-08-02 04:49] LABS: ANION GAP 10.3 mEq/L (7-13); CHLORIDE,CL 100 mmol/L (98-107); SODIUM,NA 139 mmol/L (136-145)
[2021-08-02] MEDS: Pantoprazole 40 MG Tab.CR PO SCH (08:29)
[2021-08-02] MEDS: Enoxaparin 40 MG/0.4 ML Syringe SUBCUT SCH (08:29)
[2021-08-02] MEDS: cloNIDine 0.1 MG Tab PO SCH ×2 (08:29→20:59)
[2021-08-02] MEDS ORDERED: Buprenorphine 8 MG Tab.SL SL ONE (11:24)
[2021-08-02] MEDS: Polyvinyl Alcohol 1.4% Ophth Soln 15 ML Bottle EYEBOTH PRN ×2 (11:33→22:04)
[2021-08-02] MEDS ORDERED: Buprenorphine 8 MG Tab.SL SL SCH (12:00)
[2021-08-02] MEDS: Buprenorphine 8 MG Tab.SL SL SCH ×2 (15:38→22:04)
--- NOTE | 2021-08-02 15:51 | PCM.PN ---
- General Info Date of Service: 08/01/21 Admission Dx/Problem (Free Text): Admission Diagnosis/Problem Admission Diagnosis/Problem Weakness Subjective Update: Thalia was admitted last night after she presented to the ED unable to walk. A lot of her current symptoms are conversion disorder/somatoform disorder related, being a manifestation of severe anxiety and depression. This morning, she told nursing staff that she is unable to move either of her legs. As has been the case previously, nursing has observed her moving her legs when she is not aware that anybody is seeing her. Also of note, she continues to have occasional urinary retention. She had a bladder scan this morning that showed greater than 400 mL and had to be straight cathed. - Patient Data Vitals - Most Recent: Last Vital Signs Temp 98.9 F 08/02/21 11:56 Pulse 79 08/02/21 11:56 Resp 18 08/02/21 11:56 BP 130/77 08/02/21 11:56 Pulse Ox 90 L 08/02/21 11:56 Weight - Most Recent: 103 lb 3.2 oz I&O - Last 24 Hours: Intake & Output 08/02/21 08/02/21 08/02/21 06:59 14:59 22:59 Intake Total 50 620 Output Total 2200 800 Balance -2150 -180 Lab Results Last 24 Hours: Laboratory Results - last 24 hr 08/02/21 08/02/21 08/02/21 Range/Units 04:25 04:25 04:25 WBC 11.3 H (5.0-10.0) 10^3/uL RBC 5.15 (4.2-5.4) 10^6/uL Hgb 16.5 H (12.0-16.0) g/dL Hct 50.3 H (37.0-47.0) % MCV 97.7 (80-100) fL MCH 32.0 (27.0-34.0) pg MCHC 32.8 L (33.0-35.0) g/dL Plt Count 229 (150-450) 10^3/uL Neut % (Auto) 66.0 (42.2-75.2) % Lymph % (Auto) 20.3 L (20.5-50.1) % [place] % (Auto) 10.6 H (2-8) % Eos % (Auto) 2.7 (1.0-3.0) % Baso % (Auto) 0.4 (0.0-1.0) % Sodium 139 (136-145) mmol/L Potassium 3.3 L (3.5-5.1) mmol/L Chloride 100 (98-107) mmol/L Carbon Dioxide 32 (21-32) mmol/L Anion Gap 10.3 (7-13) mEq/L BUN 8 (7-18) mg/dL Creatinine 0.44 L (0.55-1.02) mg/dL Est Cr Clr Drug Dosing 97.20 mL/min Estimated GFR (MDRD) > 60 BUN/Creatinine Ratio 18.2 (No establ ref range) Glucose 90 (70-99) mg/dL Calcium 8.6 (8.5-10.1) mg/dL Total Bilirubin 0.5 (0.2-1.0) mg/dL AST 18 (15-37) U/L ALT 36 (14-59) U/L Alkaline Phosphatase 67 (46-116) U/L Troponin I High Sens 22 (<=51) pg/mL Total Protein 6.0 L (6.4-8.2) g/dL Albumin 3.5 (3.4-5.0) g/dL Globulin 2.5 Albumin/Globulin Ratio 1.4 Med Orders - Current: Current Medications Acetaminophen (Acetaminophen 325 Mg Tab) 650 mg PO Q4H PRN PRN Reason: Pain (Mild 1-3)/fever Last Admin: 08/01/21 00:32 Dose: 650 mg Documented by: Artificial Tears (Polyvinyl Alcohol 1.4% Ophth Soln 15 Ml Bottle) 0 ml EYEBOTH QID PRN PRN Reason: Dry Eyes Last Admin: 08/02/21 11:33 Dose: 1 applic Documented by: Buprenorphine (Buprenorphine 8 Mg Tab.Sl) 4 mg SL 0800,1200,1600,2200 [facility] Last Admin: 08/02/21 15:38 Dose: Not Given Documented by: Clonidine HCl (Clonidine 0.1 Mg Tab) 0.1 mg PO BID [facility] Last Admin: 08/02/21 08:29 Dose: 0.1 mg Documented by: Enoxaparin Sodium (Enoxaparin 40 Mg/0.4 Ml Syringe) 40 mg SUBCUT DAILY [facility] Last Admin: 08/02/21 08:29 Dose: Not Given Documented by: Hydroxyzine HCl (Hydroxyzine Hcl 25 Mg Tab) 25 mg PO Q6H [facility] Last Admin: 08/02/21 15:37 Dose: 25 mg Documented by: Lactated Ringer's (Ringers, Lactated) 1,000 mls @ 125 mls/hr IV ASDIRECTED [facility] Last Admin: 08/02/21 10:42 Dose: 125 mls/hr Documented by: Ibuprofen (Ibuprofen 600 Mg Tab) 600 mg PO Q6H PRN PRN Reason: Pain (mild 1-3) Last Admin: 08/01/21 04:26 Dose: 600 mg Documented by: Melatonin (Melatonin 3 Mg Tab) 6 mg PO BEDTIME [facility] Last Admin: 08/01/21 20:17 Dose: 6 mg Documented by: Non-Formulary Medication (Aripiprazole) 2 mg PO DAILY [facility] Ondansetron HCl (Ondansetron 4 Mg Tab.Dis) 4 mg PO Q6H PRN PRN Reason: nausea, able to take PO Ondansetron HCl (Ondansetron 4 Mg Tab.Dis) 4 mg PO Q8H [facility] Last Admin: 08/02/21 10:39 Dose: 4 mg Documented by: Pantoprazole Sodium (Pantoprazole 40 Mg Tab.Cr) 40 mg PO DAILY [facility] Last Admin: 08/02/21 08:29 Dose: 40 mg Documented by: Discontinued Medications Hydrocodone Bitart/Acetaminophen (Acetaminophen/Hydrocodone 325-5 Mg Tab) 1 tab PO ONETIME ONE Stop: 07/31/21 20:58 Last Admin: 07/31/21 21:06 Dose: 1 tab Documented by: Buprenorphine (Buprenorphine 8 Mg Tab.Sl) 4 mg SL ONETIME ONE Stop: 08/01/21 09:49 Last Admin: 08/01/21 11:26 Dose: 4 mg Documented by: Buprenorphine (Buprenorphine 8 Mg Tab.Sl) 4 mg SL ONETIME ONE Stop: 08/01/21 14:09 Last Admin: 08/01/21 14:54 Dose: 4 mg Documented by: Buprenorphine (Buprenorphine 8 Mg Tab.Sl) 4 mg SL ONETIME ONE Stop: 08/01/21 20:37 Last Admin: 08/01/21 20:46 Dose: 4 mg Documented by: Buprenorphine (Buprenorphine 8 Mg Tab.Sl) 4 mg SL ONETIME ONE Stop: 08/02/21 11:25 Last Admin: 08/02/21 11:37 Dose: 4 mg Documented by: Buprenorphine (Buprenorphine 8 Mg Tab.Sl) 4 mg SL 0800,1200,1600,2200 AILYN Hydroxyzine HCl (Hydroxyzine Hcl 25 Mg Tab) 25 mg PO ONETIME ONE Stop: 07/31/21 20:58 Last Admin: 07/31/21 21:06 Dose: 25 mg Documented by: Sodium Chloride (Normal Saline) 1,000 mls @ 250 mls/hr IV .BOLUS ONE Stop: 08/01/21 00:23 Last Admin: 07/31/21 20:36 Dose: 250 mls/hr Documented by: Iopamidol (Iopamidol 612 Mg/Ml 50 Ml Sdv) 50 ml IVPUSH ONETIME ONE Stop: 08/01/21 08:31 Last Admin: 08/01/21 10:54 Dose: 97 ml Documented by: Potassium Chloride (Potassium Chloride 10 Meq Tab.Er) 20 meq PO ONETIME ONE Stop: 07/31/21 22:16 Last Admin: 07/31/21 22:20 Dose: 20 meq Documented by: - Exam Physical Findings Comments:: General: Thalia is a 60-year-old woman in no acute distress She is alert and oriented today, affect is somewhat flat Mucous membranes are much improved, she appears rehydrated She is not moving either of her bilateral lower extremities, but she does still continue to have calf ankle and foot muscle tone. Peripheral pulses are intact CT with contrast of the lumbar spine is pending - Patient Data Lab Results Last 24 hrs: Laboratory Results - last 24 hr 08/02/21 08/02/21 08/02/21 Range/Units 04:25 04:25 04:25 WBC 11.3 H (5.0-10.0) 10^3/uL RBC 5.15 (4.2-5.4) 10^6/uL Hgb 16.5 H (12.0-16.0) g/dL Hct 50.3 H (37.0-47.0) % MCV 97.7 (80-100) fL MCH 32.0 (27.0-34.0) pg MCHC 32.8 L (33.0-35.0) g/dL Plt Count 229 (150-450) 10^3/uL Neut % (Auto) 66.0 (42.2-75.2) % Lymph % (Auto) 20.3 L (20.5-50.1) % [place] % (Auto) 10.6 H (2-8) % Eos % (Auto) 2.7 (1.0-3.0) % Baso % (Auto) 0.4 (0.0-1.0) % Sodium 139 (136-145) mmol/L Potassium 3.3 L (3.5-5.1) mmol/L Chloride 100 (98-107) mmol/L Carbon Dioxide 32 (21-32) mmol/L Anion Gap 10.3 (7-13) mEq/L BUN 8 (7-18) mg/dL Creatinine 0.44 L (0.55-1.02) mg/dL Est Cr Clr Drug Dosing 97.20 mL/min Estimated GFR (MDRD) > 60 BUN/Creatinine Ratio 18.2 (No establ ref range) Glucose 90 (70-99) mg/dL Calcium 8.6 (8.5-10.1) mg/dL Total Bilirubin 0.5 (0.2-1.0) mg/dL AST 18 (15-37) U/L ALT 36 (14-59) U/L Alkaline Phosphatase 67 (46-116) U/L Troponin I High Sens 22 (<=51) pg/mL Total Protein 6.0 L (6.4-8.2) g/dL Albumin 3.5 (3.4-5.0) g/dL Globulin 2.5 Albumin/Globulin Ratio 1.4 Result Diagrams: 08/02/21 04:25 08/02/21 04:25 Sepsis Event Note - Evaluation Sepsis Screening Result: No Definite Risk - Focused Exam Vital Signs: Vital Signs Temp Pulse Resp BP BP Pulse Ox 08/02/21 11:56 98.9 F 79 18 130/77 90 L 08/02/21 08:29 138/76 08/02/21 08:00 97.8 F 91 16 138/76 88 L 08/02/21 04:00 97.4 F 84 18 154/84 H 90 L - Problem List & Annotations (1) Lower extremity weakness SNOMED Code(s): 328468680, 098261785 Code(s): R29.898 - OTH SYMPTOMS AND SIGNS INVOLVING THE MUSCULOSKELETAL SYSTEM Status: Acute Current Visit: Yes Qualifiers: Laterality: right Qualified Code(s): R29.898 - Other symptoms and signs involving the musculoskeletal system (2) Benzodiazepine dependence, continuous SNOMED Code(s): 989968769, 267462961990105 Code(s): F13.20 - SEDATIVE, HYPNOTIC OR ANXIOLYTIC DEPENDENCE, UNCOMPLICATED Status: Acute Current Visit: No (3) Lumbar disc herniation with radiculopathy SNOMED Code(s): 167692729 Code(s): M51.16 - INTERVERTEBRAL DISC DISORDERS W RADICULOPATHY, LUMBAR REGION Status: Acute Priority: High Current Visit: No (4) Opiate dependence, continuous SNOMED Code(s): 474117918 Code(s): F11.20 - OPIOID DEPENDENCE, UNCOMPLICATED Status: Acute Priority: High Current Visit: No - Problem List Review Problem List Initiated/Reviewed/Updated: Yes - My Orders Last 24 Hours: My Active Orders 08/01/21 17:58 Supplement (Dietary) [Dietary Supplements] [RC] DAILY 08/01/21 21:00 Melatonin 6 mg PO BEDTIME cloNIDine [Catapres] 0.1 mg PO BID 08/01/21 22:58 Urinary Catheter Assessment [RC] ASDIRECTED 08/01/21 22:59 Bladder Scan [RC] PRN 08/01/21 23:00 Urinary Catheter Insertion [Insert Urinary Catheter] [OM.PC] Q24H 08/02/21 11:01 Polyvinyl Alcohol [LiquiTears 1.4% Ophth Soln] 0 ml EYEBOTH QID PRN 08/02/21 11:08 Communication Order [RC] PER UNIT ROUTINE 08/02/21 16:00 Buprenorphine [Subutex] 4 mg SL 0800,1200,1600,2200 - Plan Plan:: Assessment/Plan: 1. 60-year-old woman with chronic pain syndrome secondary to severe lumbar disc degeneration 2. Opioid dependence secondary to #1 3. Severe major depressive disorder and generalized anxiety disorder secondary to #1 and #2 4. Benzodiazepine dependence secondary to #3 5. 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 Over the next 48 hours, we will hopefully get a good idea of what her daily requirement will be. Her primary care provider should be able to convert that to outpatient Suboxone treatment when she is discharged -We will get a CT with contrast of the lumbar spine today, just to make sure we do not have an acute cauda equina syndrome going on. As noted in previous notes, it is very difficult to ascertain how much of this is an actual physical condition, and how much of this is conversion disorder/somatoform disorder that is manifesting as these physical symptoms -Recheck CBC, CMP in the a.m. 08/02 -I had a long discussion with Thalia and her sister so we are all on the same page. They are happy that we are getting this buprenorphine going, this should be a good solution for Thalia going forward. I will give her some relief from her pain, also helping her manage her opioid dependency more reliably. -Hopefully we are able to get her more mobilized, and continue to do some counseling with her so that she has less somatoform symptoms. I have already begun the discussion with Thalia and her sister, that she may need a rehabilitation stay in the shelter if she is not able to ambulate and function independently. -She is scheduled for MRI on 08/04/2021. Once we have that, we can then get her set up for orthopedic consultation for her back. I would also like her to get an appointment to see neurology for their assessment of her as well.
--- NOTE | 2021-08-02 15:58 | PCM.PN ---
- General Info Date of Service: 08/02/21 Admission Dx/Problem (Free Text): Admission Diagnosis/Problem Admission Diagnosis/Problem Weakness Subjective Update: Thalia did better overnight last night. She did have one episode, where she relayed to nurses that she could not move either her legs or her arms, when nursing tried to get her up to the bathroom, they stated "she was stiff like a plank". This morning, she was able to sit on the commode and use both her legs and her arms. She had one episode of some tightness in her chest last night, EKG and troponin were both normal. She did well through the night on occasional doses of buprenorphine. She now has had 5 doses in her first [address] with contrast of the lumbar spine did not show any concern for cauda equina syndrome. According the radiologist dictation, there was appropriate space in the central canal - Patient Data Vitals - Most Recent: Last Vital Signs Temp 98.9 F 08/02/21 11:56 Pulse 79 08/02/21 11:56 Resp 18 08/02/21 11:56 BP 130/77 08/02/21 11:56 Pulse Ox 90 L 08/02/21 11:56 Weight - Most Recent: 103 lb 3.2 oz I&O - Last 24 Hours: Intake & Output 08/02/21 08/02/21 08/02/21 06:59 14:59 22:59 Intake Total 50 620 Output Total 2200 800 Balance -2150 -180 Lab Results Last 24 Hours: Laboratory Results - last 24 hr 08/02/21 08/02/21 08/02/21 Range/Units 04:25 04:25 04:25 WBC 11.3 H (5.0-10.0) 10^3/uL RBC 5.15 (4.2-5.4) 10^6/uL Hgb 16.5 H (12.0-16.0) g/dL Hct 50.3 H (37.0-47.0) % MCV 97.7 (80-100) fL MCH 32.0 (27.0-34.0) pg MCHC 32.8 L (33.0-35.0) g/dL Plt Count 229 (150-450) 10^3/uL Neut % (Auto) 66.0 (42.2-75.2) % Lymph % (Auto) 20.3 L (20.5-50.1) % Placer % (Auto) 10.6 H (2-8) % Eos % (Auto) 2.7 (1.0-3.0) % Baso % (Auto) 0.4 (0.0-1.0) % Sodium 139 (136-145) mmol/L Potassium 3.3 L (3.5-5.1) mmol/L Chloride 100 (98-107) mmol/L Carbon Dioxide 32 (21-32) mmol/L Anion Gap 10.3 (7-13) mEq/L BUN 8 (7-18) mg/dL Creatinine 0.44 L (0.55-1.02) mg/dL Est Cr Clr Drug Dosing 97.20 mL/min Estimated GFR (MDRD) > 60 BUN/Creatinine Ratio 18.2 (No establ ref range) Glucose 90 (70-99) mg/dL Calcium 8.6 (8.5-10.1) mg/dL Total Bilirubin 0.5 (0.2-1.0) mg/dL AST 18 (15-37) U/L ALT 36 (14-59) U/L Alkaline Phosphatase 67 (46-116) U/L Troponin I High Sens 22 (<=51) pg/mL Total Protein 6.0 L (6.4-8.2) g/dL Albumin 3.5 (3.4-5.0) g/dL Globulin 2.5 Albumin/Globulin Ratio 1.4 Med Orders - Current: Current Medications Acetaminophen (Acetaminophen 325 Mg Tab) 650 mg PO Q4H PRN PRN Reason: Pain (Mild 1-3)/fever Last Admin: 08/01/21 00:32 Dose: 650 mg Documented by: Artificial Tears (Polyvinyl Alcohol 1.4% Ophth Soln 15 Ml Bottle) 0 ml EYEBOTH QID PRN PRN Reason: Dry Eyes Last Admin: 08/02/21 11:33 Dose: 1 applic Documented by: Buprenorphine (Buprenorphine 8 Mg Tab.Sl) 4 mg SL 0800,1200,1600,2200 [facility] Last Admin: 08/02/21 15:38 Dose: Not Given Documented by: Clonidine HCl (Clonidine 0.1 Mg Tab) 0.1 mg PO BID [facility] Last Admin: 08/02/21 08:29 Dose: 0.1 mg Documented by: Enoxaparin Sodium (Enoxaparin 40 Mg/0.4 Ml Syringe) 40 mg SUBCUT DAILY [facility] Last Admin: 08/02/21 08:29 Dose: Not Given Documented by: Hydroxyzine HCl (Hydroxyzine Hcl 25 Mg Tab) 25 mg PO Q6H [facility] Last Admin: 08/02/21 15:37 Dose: 25 mg Documented by: Lactated Ringer's (Ringers, Lactated) 1,000 mls @ 125 mls/hr IV ASDIRECTED [facility] Last Admin: 08/02/21 10:42 Dose: 125 mls/hr Documented by: Ibuprofen (Ibuprofen 600 Mg Tab) 600 mg PO Q6H PRN PRN Reason: Pain (mild 1-3) Last Admin: 08/01/21 04:26 Dose: 600 mg Documented by: Melatonin (Melatonin 3 Mg Tab) 6 mg PO BEDTIME [facility] Last Admin: 08/01/21 20:17 Dose: 6 mg Documented by: Non-Formulary Medication (Aripiprazole) 2 mg PO DAILY [facility] Ondansetron HCl (Ondansetron 4 Mg Tab.Dis) 4 mg PO Q6H PRN PRN Reason: nausea, able to take PO Ondansetron HCl (Ondansetron 4 Mg Tab.Dis) 4 mg PO Q8H [facility] Last Admin: 08/02/21 10:39 Dose: 4 mg Documented by: Pantoprazole Sodium (Pantoprazole 40 Mg Tab.Cr) 40 mg PO DAILY [facility] Last Admin: 08/02/21 08:29 Dose: 40 mg Documented by: Discontinued Medications Hydrocodone Bitart/Acetaminophen (Acetaminophen/Hydrocodone 325-5 Mg Tab) 1 tab PO ONETIME ONE Stop: 07/31/21 20:58 Last Admin: 07/31/21 21:06 Dose: 1 tab Documented by: Buprenorphine (Buprenorphine 8 Mg Tab.Sl) 4 mg SL ONETIME ONE Stop: 08/01/21 09:49 Last Admin: 08/01/21 11:26 Dose: 4 mg Documented by: Buprenorphine (Buprenorphine 8 Mg Tab.Sl) 4 mg SL ONETIME ONE Stop: 08/01/21 14:09 Last Admin: 08/01/21 14:54 Dose: 4 mg Documented by: Buprenorphine (Buprenorphine 8 Mg Tab.Sl) 4 mg SL ONETIME ONE Stop: 08/01/21 20:37 Last Admin: 08/01/21 20:46 Dose: 4 mg Documented by: Buprenorphine (Buprenorphine 8 Mg Tab.Sl) 4 mg SL ONETIME ONE Stop: 08/02/21 11:25 Last Admin: 08/02/21 11:37 Dose: 4 mg Documented by: Buprenorphine (Buprenorphine 8 Mg Tab.Sl) 4 mg SL 0800,1200,1600,2200 [facility] Hydroxyzine HCl (Hydroxyzine Hcl 25 Mg Tab) 25 mg PO ONETIME ONE Stop: 07/31/21 20:58 Last Admin: 07/31/21 21:06 Dose: 25 mg Documented by: Sodium Chloride (Normal Saline) 1,000 mls @ 250 mls/hr IV .BOLUS ONE Stop: 08/01/21 00:23 Last Admin: 07/31/21 20:36 Dose: 250 mls/hr Documented by: Iopamidol (Iopamidol 612 Mg/Ml 50 Ml Sdv) 50 ml IVPUSH ONETIME ONE Stop: 08/01/21 08:31 Last Admin: 08/01/21 10:54 Dose: 97 ml Documented by: Potassium Chloride (Potassium Chloride 10 Meq Tab.Er) 20 meq PO ONETIME ONE Stop: 07/31/21 22:16 Last Admin: 07/31/21 22:20 Dose: 20 meq Documented by: - Exam Physical Findings Comments:: General: Thalia is a 60-year-old woman in no acute distress. She is in much better mood this morning, and we had a very pleasant and insightful conversation this morning Oropharynx is clear, mucous membranes are moist Bilateral lower extremities: She is able to now move the left leg better, but right leg is still sluggish. As previously, she has muscle tone bilaterally, p eripheral pulses are intact - Patient Data Lab Results Last 24 hrs: Laboratory Results - last 24 hr 08/02/21 08/02/21 08/02/21 Range/Units 04:25 04:25 04:25 WBC 11.3 H (5.0-10.0) 10^3/uL RBC 5.15 (4.2-5.4) 10^6/uL Hgb 16.5 H (12.0-16.0) g/dL Hct 50.3 H (37.0-47.0) % MCV 97.7 (80-100) fL MCH 32.0 (27.0-34.0) pg MCHC 32.8 L (33.0-35.0) g/dL Plt Count 229 (150-450) 10^3/uL Neut % (Auto) 66.0 (42.2-75.2) % Lymph % (Auto) 20.3 L (20.5-50.1) % Placer % (Auto) 10.6 H (2-8) % Eos % (Auto) 2.7 (1.0-3.0) % Baso % (Auto) 0.4 (0.0-1.0) % Sodium 139 (136-145) mmol/L Potassium 3.3 L (3.5-5.1) mmol/L Chloride 100 (98-107) mmol/L Carbon Dioxide 32 (21-32) mmol/L Anion Gap 10.3 (7-13) mEq/L BUN 8 (7-18) mg/dL Creatinine 0.44 L (0.55-1.02) mg/dL Est Cr Clr Drug Dosing 97.20 mL/min Estimated GFR (MDRD) > 60 BUN/Creatinine Ratio 18.2 (No establ ref range) Glucose 90 (70-99) mg/dL Calcium 8.6 (8.5-10.1) mg/dL Total Bilirubin 0.5 (0.2-1.0) mg/dL AST 18 (15-37) U/L ALT 36 (14-59) U/L Alkaline Phosphatase 67 (46-116) U/L Troponin I High Sens 22 (<=51) pg/mL Total Protein 6.0 L (6.4-8.2) g/dL Albumin 3.5 (3.4-5.0) g/dL Globulin 2.5 Albumin/Globulin Ratio 1.4 Result Diagrams: 08/02/21 04:25 08/02/21 04:25 Sepsis Event Note - Evaluation Sepsis Screening Result: No Definite Risk - Focused Exam Vital Signs: Vital Signs Temp Pulse Resp BP BP Pulse Ox 08/02/21 11:56 98.9 F 79 18 130/77 90 L 08/02/21 08:29 138/76 08/02/21 08:00 97.8 F 91 16 138/76 88 L 08/02/21 04:00 97.4 F 84 18 154/84 H 90 L - Problem List & Annotations (1) Lower extremity weakness SNOMED Code(s): 038051453, 143119966 Code(s): R29.898 - OTH SYMPTOMS AND SIGNS INVOLVING THE MUSCULOSKELETAL SYSTEM Status: Acute Current Visit: Yes Qualifiers: Laterality: right Qualified Code(s): R29.898 - Other symptoms and signs involving the musculoskeletal system (2) Benzodiazepine dependence, continuous SNOMED Code(s): 029230384, 344994948225382 Code(s): F13.20 - SEDATIVE, HYPNOTIC OR ANXIOLYTIC DEPENDENCE, UNCOMPLICATED Status: Acute Current Visit: No (3) Lumbar disc herniation with radiculopathy SNOMED Code(s): 481400117 Code(s): M51.16 - INTERVERTEBRAL DISC DISORDERS W RADICULOPATHY, LUMBAR REGION Status: Acute Priority: High Current Visit: No (4) Opiate dependence, continuous SNOMED Code(s): 951083149 Code(s): F11.20 - OPIOID DEPENDENCE, UNCOMPLICATED Status: Acute Prior ity: High Current Visit: No - Problem List Review Problem List Initiated/Reviewed/Updated: Yes - My Orders Last 24 Hours: My Active Orders 08/01/21 17:58 Supplement (Dietary) [Dietary Supplements] [RC] DAILY 08/01/21 21:00 Melatonin 6 mg PO BEDTIME cloNIDine [Catapres] 0.1 mg PO BID 08/01/21 22:58 Urinary Catheter Assessment [RC] ASDIRECTED 08/01/21 22:59 Bladder Scan [RC] PRN 08/01/21 23:00 Urinary Catheter Insertion [Insert Urinary Catheter] [OM.PC] Q24H 08/02/21 11:01 Polyvinyl Alcohol [LiquiTears 1.4% Ophth Soln] 0 ml EYEBOTH QID PRN 08/02/21 11:08 Communication Order [RC] PER UNIT ROUTINE 08/02/21 16:00 Buprenorphine [Subutex] 4 mg SL 0800,1200,1600,2200 - Plan Plan:: Assessment/Plan: 1. 60-year-old woman with chronic pain syndrome secondary to severe lumbar disc degeneration 2. Opioid dependence secondary to #1 3. Severe major depressive disorder and generalized anxiety disorder secondary to #1 and #2 4. Benzodiazepine dependence secondary to #3 5. 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 We will still do as needed dosing for most of today, it appears as though she needs 4 doses of the 4 mg tablets in a 24-hour period. Starting this afternoon, we will schedule that for 1600, 2200, and then 0800 and 1200. We may need to adjust that going forward. -Thalia is asking for full physical therapy, she would like to do 2 or 3 sessions daily if possible. We had a good discussion this morning, that if we can get her strong enough to be admitted for a rehabilitation stay in a [facility]p, that has the best chance of getting her back home on an independent basis -Continue her other medications as ordered -I again had a good discussion with her sister Kyra, we will have her planner scheduler start working with Kyra to get outpatient appointment s cheduled with both orthopedics and neurology in [place]. As above, she has an MRI of her lumbar spine scheduled for August 04
[2021-08-02] MEDS: Melatonin 3 MG Tab PO SCH (20:57)
[2021-08-03] MEDS: Ondansetron 4 MG Tab.DIS PO SCH ×2 (01:05→01:07)
[2021-08-03] MEDS ORDERED: Buprenorphine 8 MG Tab.SL SL ONE (02:00)
[2021-08-03] MEDS: Lactated Ringers 1,000 ML IV SCH ×2 (04:36→16:51)
[2021-08-03] MEDS: hydrOXYzine HCl 25 MG Tab PO SCH ×4 (05:30→21:33)
--- NOTE | 2021-08-03 08:12 | PCM.PN ---
- General Info Date of Service: 08/03/21 Admission Dx/Problem (Free Text): Admission Diagnosis/Problem Admission Diagnosis/Problem Weakness Subjective Update: Thalia continues to have intermittent weakness, loss of use of her lower extremities, and loss of sensation in both of her lower extremities. She was scheduled to have an MRI of the lumbar spine tomorrow, but fortunately the radiology team was able to move that up to today. Since she was having this MRI of the spine, they were able to accommodate her also having an MRI of the brain as well. MRI of the brain showed a large area of ischemia involving the vertices of both cerebral hemispheres, found on the diffusion images of the MRI. Per recommendation of neurology, we also got a CTA of the brain, which showed that same ischemia, but no aneurysm or embolus seen. I was on the phone for over 3 hours this afternoon, prior to the writing of this note, with 3 different hospitals looking for transfer. I spoke with 3 different neurologists, most recent being Dr. Fisher at [facility] in [place]. After looking at the MRI of the brain as well as the CTA of the brain, he discussed with me that this looks very similar to his syndrome that he had seen in patients who had come suddenly off of narcotics, including heroin, in the past. He discussed with me that there is a known syndrome where there can be vasospasm of 1 or more cerebral arteries, causing ischemia and even infarct. 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 Due to the COVID-19 pandemic and crisis, they are not able to accept her in transfer today, but will put her on the waiting list to see if they are able to take her soon as possible. After talking with this neurologist, I then discussed his conclusion and findings with both Thalia and her sister. They are very distressed that this occurred because of quitting her narcotics, but are also relieved that we have found a possible answer to her unusual symptoms. We discussed that because this vasospasm is causing a generalized ischemia instead of significant infarct, that explains the relapsing and intermittent symptoms neurologically that she is having. Thalia has been having severe anxiety since admitted here, since she is no longer taking benzodiazepines, and her neurochemistry is starting to normalize. Nursing and myself are working as hard as we can to work with her in helping her rationalize her thoughts, as well as find appropriate coping mechanisms for when she has severe anxiety. - Patient Data Vitals - Most Recent: Last Vital Signs Temp 98.6 F 08/03/21 07:57 Pulse 81 08/03/21 07:57 Resp 18 08/03/21 07:57 BP 147/74 H 08/03/21 07:57 Pulse Ox 88 L 08/03/21 07:57 Weight - Most Recent: 103 lb 3.2 oz I&O - Last 24 Hours: Intake & Output 08/02/21 08/03/21 08/03/21 22:59 06:59 14:59 Intake Total 240 1360 Output Total 1100 Balance 240 260 Med Orders - Current: Current Medications Acetaminophen (Acetaminophen 325 Mg Tab) 650 mg PO Q4H PRN PRN Reason: Pain (Mild 1-3)/fever Last Admin: 08/01/21 00:32 Dose: 650 mg Documented by: Artificial Tears (Polyvinyl Alcohol 1.4% Ophth Soln 15 Ml Bottle) 0 ml EYEBOTH QID PRN PRN Reason: Dry Eyes Last Admin: 08/02/21 22:04 Dose: 1 applic Documented by: Buprenorphine (Buprenorphine 8 Mg Tab.Sl) 4 mg SL 0800,1200,1600,2200 [facility] Last Admin: 08/02/21 22:04 Dose: 4 mg Documented by: Clonidine HCl (Clonidine 0.1 Mg Tab) 0.1 mg PO BID [facility] Last Admin: 08/02/21 20:59 Dose: 0.1 mg Documented by: Enoxaparin Sodium (Enoxaparin 40 Mg/0.4 Ml Syringe) 40 mg SUBCUT DAILY [facility] Last Admin: 08/02/21 08:29 Dose: Not Given Documented by: Hydroxyzine HCl (Hydroxyzine Hcl 25 Mg Tab) 25 mg PO Q6H [facility] Last Admin: 08/03/21 05:30 Dose: Not Given Documented by: Lactated Ringer's (Ringers, Lactated) 1,000 mls @ 125 mls/hr IV ASDIRECTED [facility] Last Admin: 08/03/21 04:36 Dose: 125 mls/hr Documented by: Ibuprofen (Ibuprofen 600 Mg Tab) 600 mg PO Q6H PRN PRN Reason: Pain (mild 1-3) Last Admin: 08/01/21 04:26 Dose: 600 mg Documented by: Melatonin (Melatonin 3 Mg Tab) 6 mg PO BEDTIME [facility] Last Admin: 08/02/21 20:57 Dose: 6 mg Documented by: Non-Formulary Medication (Aripiprazole) 2 mg PO DAILY [facility] Ondansetron HCl (Ondansetron 4 Mg Tab.Dis) 4 mg PO Q6H PRN PRN Reason: nausea, able to take PO Ondansetron HCl (Ondansetron 4 Mg Tab.Dis) 4 mg PO Q8H [facility] Last Admin: 08/03/21 01:07 Dose: Not Given Documented by: Pantoprazole Sodium (Pantoprazole 40 Mg Tab.Cr) 40 mg PO DAILY [facility] Last Admin: 08/02/21 08:29 Dose: 40 mg Documented by: Discontinued Medications Hydrocodone Bitart/Acetaminophen (Acetaminophen/Hydrocodone 325-5 Mg Tab) 1 tab PO ONETIME ONE Stop: 07/31/21 20:58 Last Admin: 07/31/21 21:06 Dose: 1 tab Documented by: Buprenorphine (Buprenorphine 8 Mg Tab.Sl) 4 mg SL ONETIME ONE Stop: 08/01/21 09:49 Last Admin: 08/01/21 11:26 Dose: 4 mg Documented by: Buprenorphine (Buprenorphine 8 Mg Tab.Sl) 4 mg SL ONETIME ONE Stop: 08/01/21 14:09 Last Admin: 08/01/21 14:54 Dose: 4 mg Documented by: Buprenorphine (Buprenorphine 8 Mg Tab.Sl) 4 mg SL ONETIME ONE Stop: 08/01/21 20:37 Last Admin: 08/01/21 20:46 Dose: 4 mg Documented by: Buprenorphine (Buprenorphine 8 Mg Tab.Sl) 4 mg SL ONETIME ONE Stop: 08/02/21 11:25 Last Admin: 08/02/21 11:37 Dose: 4 mg Documented by: Buprenorphine (Buprenorphine 8 Mg Tab.Sl) 4 mg SL 0800,1200,1600,2200 [facility] Hydroxyzine HCl (Hydroxyzine Hcl 25 Mg Tab) 25 mg PO ONETIME ONE Stop: 07/31/21 20:58 Last Admin: 07/31/21 21:06 Dose: 25 mg Documented by: Sodium Chloride (Normal Saline) 1,000 mls @ 250 mls/hr IV .BOLUS ONE Stop: 08/01/21 00:23 Last Admin: 07/31/21 20:36 Dose: 250 mls/hr Documented by: Iopamidol (Iopamidol 612 Mg/Ml 50 Ml Sdv) 50 ml IVPUSH ONETIME ONE Stop: 08/01/21 08:31 Last Admin: 08/01/21 10:54 Dose: 97 ml Documented by: Potassium Chloride (Potassium Chloride 10 Meq Tab.Er) 20 meq PO ONETIME ONE Stop: 07/31/21 22:16 Last Admin: 07/31/21 22:20 Dose: 20 meq Documented by: - Exam Physical Findings Comments:: General: Thalia is a 60-year-old woman in no acute distress Oropharynx is clear, mucous membranes are moist Neck is supple, no lymphadenopathy Heart: Regular rate and rhythm, 1 out of 6 systolic murmur best heard over left sternal border Lungs: Clear to auscultation throughout Lower extremities: She is actually moving her right lower extremity a little bit today, able to wiggle her toes and move her calf muscle. Mobility with the left leg is much improved from yesterday, she is moving that quite a bit today. She reports that she is still having numbness of the right leg, up to the level of about her knee. She states that she can feel her left leg. She does not differentiate today between sharp and dull with the right leg but can with the left leg. Temperature sensation appears to be intact on both sides. Nursing reports that, as she has been doing the last few days, there have been times when she is able to assist with transfer off and on the commode, and times when she states that she cannot - Patient Data Result Diagrams: 08/02/21 04:25 08/02/21 04:25 Sepsis Event Note - Evaluation Sepsis Screening Result: No Definite Risk - Focused Exam Vital Signs: Vital Signs Temp Pulse Resp BP BP Pulse Ox Pulse Ox 08/03/21 07:57 98.6 F 81 18 147/74 H 88 L 08/03/21 04:00 97.3 F 78 18 152/70 H 90 L 08/03/21 00:00 98.5 F 80 18 145/67 H 90 L 90 L 08/02/21 20:59 140/55 L - Problem List & Annotations (1) Lower extremity weakness SNOMED Code(s): 689128228, 639611790 Code(s): R29.898 - OTH SYMPTOMS AND SIGNS INVOLVING THE MUSCULOSKELETAL SYSTEM Status: Acute Current Visit: Yes Qualifiers: Laterality: right Qualified Code(s): R29.898 - Other symptoms and signs involving the musculoskeletal system (2) Benzodiazepine dependence, continuous SNOMED Code(s): 784947625, [id number] Code(s): F13.20 - SEDATIVE, HYPNOTIC OR ANXIOLYTIC DEPENDENCE, UNCOMPLICATED Status: Chronic Current Visit: Yes (3) Lumbar disc herniation with radiculopathy SNOMED Code(s): 720707479 Code(s): M51.16 - INTERVERTEBRAL DISC DISORDERS W RADICULOPATHY, LUMBAR REGION Status: Chronic Priority: High Current Visit: No (4) Opiate dependence, continuous SNOMED Code(s): 790880733 Code(s): F11.20 - OPIOID DEPENDENCE, UNCOMPLICATED Status: Chronic Priority: High Current Visit: No (5) Cerebral artery vasospasm SNOMED Code(s): 99037227 Code(s): I67.848 - OTHER CEREBROVASCULAR VASOSPASM AND VASOCONSTRICTION Status: Acute Current Visit: Yes Annotation/Comment:: Severe vasospasm of anterior cerebral artery, secondary to opiod withdrawal, resulting in cerebral ischemia (6) Cerebral ischemia SNOMED Code(s): 759125021 Code(s): I67.82 - CEREBRAL ISCHEMIA Status: Acute Current Visit: Yes An notation/Comment:: involving distribution of anterior cerebral artery - Problem List Review Problem List Initiated/Reviewed/Updated: Yes - My Orders Last 24 Hours: My Active Orders 08/02/21 11:01 Polyvinyl Alcohol [LiquiTears 1.4% Ophth Soln] 0 ml EYEBOTH QID PRN 08/02/21 11:08 Communication Order [RC] PER UNIT ROUTINE 08/02/21 16:00 Buprenorphine [Subutex] 4 mg SL 0800,1200,1600,2200 - Plan Plan:: Assessment/Plan: 1. 60-year-old woman with chronic pain syndrome secondary to severe lumbar disc degeneration 2. Opioid dependence secondary to #1 3. Severe major depressive disorder and generalized anxiety disorder secondary to #1 and #2 4. Benzodiazepine dependence secondary to #3 5. 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 She has been stable as far as withdrawal symptoms as well as pain control on 4 doses per day. Per recommendation of neurology, will add a fifth dose at 0200 daily for the next several days, in hopes of decreasing vasospasm that may still be occurring due to opioid withdrawal. -Per recommendation of Dr. Fisher in neurology at [facility], will start amlodipine to help decrease vasospasm that may still be occurring. I inquired as to whether we can get an MRA of her brain, the radiology department states that is not possible at this time. As this may be a continuing and evolving process, we will still attempt to transfer her to higher level of care for neurology consultation and care. Due to the COVID-19 crisis, none of the surrounding hospitals have availability to take her in transfer. She is on the waiting list at [facility] in [place], as well as [facility] in [facility], and [facility] in [facility].
--- NOTE | 2021-08-03 08:15 | PCM.EKG ---
#1 Interpretation EKG Date: 08/02/21 Time: 05:30 Rhythm: NSR Rate (Beats/Min): 90 QRS: Normal ST-T: Normal EKG Interpretation Comments: EKG shows normal sinus rhythm with a rate of 88, no ST to T changes noted, normal EKG
[2021-08-03] MEDS: Buprenorphine 8 MG Tab.SL SL SCH ×4 (08:23→21:32)
[2021-08-03] MEDS: cloNIDine 0.1 MG Tab PO SCH ×2 (08:23→21:34)
[2021-08-03] MEDS: Pantoprazole 40 MG Tab.CR PO SCH (08:27)
[2021-08-03] MEDS: Enoxaparin 40 MG/0.4 ML Syringe SUBCUT SCH (08:27)
[2021-08-03] MEDS: Acetaminophen 325 MG Tab PO PRN (08:34)
[2021-08-03] MEDS ORDERED: Iopamidol 755 Mg/ML 100 ML Bottle IVPUSH ONE (15:04)
--- NOTE | 2021-08-03 15:33 | CT ---
PROCEDURE INFORMATION: Exam: CT Neck With Contrast Exam date and time: 08/03/2021 2:50 PM Age: 60 years old Clinical indication: Other: Subacute ischemia seen on mri brain; Patient HX: High blood pressure TECHNIQUE: Imaging protocol: Computed tomography of the neck with contrast. Radiation optimization: All CT scans at this facility use at least one of these dose optimization techniques: automated exposure control; mA and/or kV adjustment per patient size (includes targeted exams where dose is matched to clinical indication); or iterative reconstruction. Contrast material: ISOVUE 370; Contrast volume: 75 ml; Contrast route: INTRAVENOUS (IV); COMPARISON: No relevant prior exams available. FINDINGS: Right common carotid artery: No stenosis. No dissection or occlusion. Right internal carotid artery: No stenosis of the extracranial segment. No dissection or occlusion. Right external carotid artery: No occlusion or stenosis of the origin. Left common carotid artery: No stenosis. No dissection or occlusion. Left internal carotid artery: Nonflow limiting plaque of the left internal carotid artery bulb. The lumen is narrowed by 10% or less. The remaining artery is patent. No flow limiting stenosis or occlusion. Left external carotid artery: No occlusion or stenosis of the origin. Right vertebral artery: No stenosis. No dissection or occlusion. Left vertebral artery: No stenosis. No dissection or occlusion. Soft tissues: Normal. No significant soft tissue swelling. Bones/joints: Moderately severe degenerative changes in the spine. Moderately severe degenerative changes of both shoulders. No fractures. Lungs: Emphysema in the upper lungs. IMPRESSION: 1. Nonflow limiting plaque of the left carotid bulb. 2. Otherwise, unremarkable cervical vasculature. No flow limiting stenosis or occlusion. No arterial dissection. REFERENCES: NASCET CRITERIA. The degree of internal carotid artery stenosis is based on NASCET criteria. Normal is no stenosis. Mild is less than 50% stenosis. Moderate is 50-69% stenosis. Severe is 70% to 99% stenosis. Total occlusion is no detectable patent lumen.
--- NOTE | 2021-08-03 15:36 | CT ---
PROCEDURE INFORMATION: Exam: CT Angiography Head With Contrast, Arteriography Exam date and time: 08/03/2021 2:50 PM Age: 60 years old Clinical indication: Other: Subacute ischemia seen on mri brain; Patient HX: High blood pressure TECHNIQUE: Imaging protocol: Computed tomography angiography of the head with contrast. Exam focused on the arteries. 3D rendering (Not supervised by radiologist): MIP and/or 3D reconstructed images were created and reviewed. Radiation optimization: All CT scans at this facility use at least one of these dose optimization techniques: automated exposure control; mA and/or kV adjustment per patient size (includes targeted exams where dose is matched to clinical indication); or iterative reconstruction. Contrast material: ISOVUE 370; Contrast volume: 75 ml; Contrast route: INTRAVENOUS (IV); COMPARISON: MR Brain wo Cont 08/03/2021 10:24 AM FINDINGS: ANTERIOR CIRCULATION: Right internal carotid artery: Unremarkable. Intracranial segment is patent with no significant stenosis. No aneurysm. Right middle cerebral artery: Unremarkable. No occlusion or significant stenosis. No aneurysm. Right anterior cerebral artery: Unremarkable. No occlusion or significant stenosis. No aneurysm. Left internal carotid artery: Unremarkable. Intracranial segment is patent with no significant stenosis. No aneurysm. Left middle cerebral artery: Unremarkable. No occlusion or significant stenosis. No aneurysm. Left anterior cerebral artery: Unremarkable. No occlusion or significant stenosis. No aneurysm. POSTERIOR CIRCULATION: Right vertebral artery: Unremarkable. No occlusion or significant stenosis. No aneurysm. Left vertebral artery: Unremarkable. No occlusion or significant stenosis. No aneurysm. Basilar artery: Unremarkable. No occlusion or significant stenosis. No aneurysm. Right posterior cerebral artery: Unremarkable. No occlusion or significant stenosis. No aneurysm. Left posterior cerebral artery: Unremarkable. No occlusion or significant stenosis. No aneurysm. Brain: Hypodensity at the left vertex consistent with subacute ischemia as demonstrated on the MRI. No hemorrhage. No mass or mass effect. Cerebral ventricles: No ventriculomegaly. Bones/joints: Unremarkable. No acute fracture. Soft tissues: Unremarkable. IMPRESSION: Unremarkable intracranial vasculature.
[2021-08-03] MEDS: Non-Formulary Medication 1 Each (Aripiprazole 2 MG Tablet) PO SCH ×2 (19:57→19:58)
[2021-08-03] MEDS ORDERED: Zolpidem 5 MG Tab PO ONE (20:54)
[2021-08-03] MEDS: amLODIPine 5 MG Tab PO SCH (21:41)
[2021-08-04] MEDS: Lactated Ringers 1,000 ML IV SCH ×3 (01:03→18:14)
[2021-08-04] MEDS: Melatonin 3 MG Tab PO SCH ×2 (03:29→20:48)
[2021-08-04] MEDS: hydrOXYzine HCl 25 MG Tab PO SCH ×4 (03:50→21:07)
[2021-08-04] MEDS: cloNIDine 0.1 MG Tab PO SCH ×2 (08:17→21:07)
[2021-08-04] MEDS: amLODIPine 5 MG Tab PO SCH (08:17)
[2021-08-04] MEDS: Enoxaparin 40 MG/0.4 ML Syringe SUBCUT SCH (08:18)
[2021-08-04] MEDS: Buprenorphine 8 MG Tab.SL SL SCH ×4 (08:18→21:08)
[2021-08-04] MEDS: Acetaminophen 325 MG Tab PO PRN ×2 (08:18→21:08)
[2021-08-04] MEDS: Pantoprazole 40 MG Tab.CR PO SCH (08:20)
--- NOTE | 2021-08-04 08:24 | MR ---
PROCEDURE INFORMATION: Exam: MR Lumbar Spine Without Contrast Exam date and time: 08/03/2021 10:05 AM Age: 60 years old Clinical indication: Pain; Lumbago with sciatica; Additional info: Chronic bilateral low back pain with RT sciatica TECHNIQUE: Imaging protocol: Multiplanar magnetic resonance images of the lumbar spine without intravenous contrast. COMPARISON: CT Lumbar Spine w Cont 08/01/2021 9:48 AM FINDINGS: Vertebrae: There is similar mild anterior height loss of the superior L1 endplate, appears chronic. Vertebral body heights are otherwise intact. Alignment is maintained. No pars defect is identified. Spinal cord: The conus is unremarkable in appearance, with its tip at the T12-L1 level. Multilevel findings: There are varying degrees of disc desiccation indicating intervertebral disc degeneration. There is again osseous fusion across the L4-L5 disc space. T12-L1: Included on the sagittal sequences only, there appears to be a minimal bulge. L1-L2: Small bulge combining with facet arthrosis to lead to very mild bilateral neural foraminal narrowing without significant spinal stenosis. There is small fluid in the facet joints. L2-L3: Small bulge combining with facet arthrosis to lead to mild bilateral neural foraminal narrowing with very mild right lateral recess narrowing, without significant central canal stenosis. L3-L4: Disc osteophyte complex combining with facet arthrosis and ligamentum flavum hypertrophy to lead to moderate right and moderate to severe left neural foraminal narrowing with very mild right and moderate left lateral recess narrowing and mild central canal stenosis. L4-L5: Osteophytic ridge combining with facet arthrosis and ligamentum flavum hypertrophy to lead to moderate to severe right and moderate left neural foraminal narrowing with mild right and very mild left lateral recess narrowing and borderline central canal stenosis. Cannot evaluate for scarring without contrast. L5-S1: Disc osteophyte complex combining with facet arthrosis to lead to severe right and mild to moderate left neural foraminal narrowing with very mild bilateral lateral recess narrowing, without significant central canal stenosis. Soft tissues: Unremarkable. IMPRESSION: Multilevel disc desiccation indicating intervertebral disk degeneration with disc displacements as described. COMMENTS: If surgery is considered, recommend level confirmation.
[2021-08-05] MEDS: Acetaminophen 325 MG Tab PO PRN (04:05)
[2021-08-05] MEDS: hydrOXYzine HCl 25 MG Tab PO SCH ×3 (04:05→16:32)
[2021-08-05] MEDS: Buprenorphine 8 MG Tab.SL SL SCH ×3 (08:30→16:31)
[2021-08-05] MEDS: amLODIPine 5 MG Tab PO SCH (08:47)
[2021-08-05] MEDS: Pantoprazole 40 MG Tab.CR PO SCH (08:47)
[2021-08-05] MEDS: Ibuprofen 600 MG Tab PO PRN ×2 (08:47→16:30)
[2021-08-05] MEDS: cloNIDine 0.1 MG Tab PO SCH (08:49)
[2021-08-05] MEDS: Enoxaparin 40 MG/0.4 ML Syringe SUBCUT SCH (08:49)
--- NOTE | 2021-08-05 10:25 | PCM.PN ---
- General Info Date of Service: 08/04/21 Admission Dx/Problem (Free Text): Admission Diagnosis/Problem Admission Diagnosis/Problem Weakness Subjective Update: Thalia continues to have severe anxiety at night. Since she has been in the hospital now for prolonged period of time, her sleep schedule is completely disrupted. She does nap during the day, so cannot sleep at 1 long session at night. She seems to get severe anxiety at night, this seems to be when she has the most altercations with nursing. When Thalia gets very anxious, she sometimes gets irritated and short with nursing staff, sometimes even being abusive. After this behavior occurs though, she does usually apologize immediately. We have tried both melatonin, and she tried Ambien last night, w ith no success. In regards to her lower extremities, she continues to have that same issue with intermittent weakness and then improvement. She has had multiple times again over the last 24 hours, where she reports that she cannot assist with weightbearing to use the toilet, and then times when she has been able to bear weight and pivot with both the right and left legs. She reports to me this m orning that she does not have any feeling in that right leg below the knee, but is able to feel her left leg. - Patient Data Vitals - Most Recent: Last Vital Signs Temp 97.9 F 08/05/21 07:46 Pulse 76 08/05/21 07:46 Resp 16 08/05/21 07:46 BP 140/63 08/05/21 08:49 Pulse Ox 90 L 08/05/21 07:46 Weight - Most Recent: 102 lb 9.6 oz I&O - Last 24 Hours: Intake & Output 08/04/21 08/05/21 08/05/21 22:59 06:59 14:59 Intake Total 1000 300 Output Total 1800 1300 650 Balance -800 -1000 -650 Med Orders - Current: Current Medications Acetaminophen (Acetaminophen 325 Mg Tab) 650 mg PO Q4H PRN PRN Reason: Pain (Mild 1-3)/fever Last Admin: 08/05/21 04:05 Dose: 650 mg Documented by: Amlodipine Besylate (Amlodipine 5 Mg Tab) 5 mg PO DAILY [facility] Last Admin: 08/05/21 08:47 Dose: 5 mg Documented by: Artificial Tears (Polyvinyl Alcohol 1.4% Ophth Soln 15 Ml Bottle) 0 ml EYEBOTH QID PRN PRN Reason: Dry Eyes Last Admin: 08/02/21 22:04 Dose: 1 applic Documented by: Buprenorphine (Buprenorphine 8 Mg Tab.Sl) 4 mg SL QID@0800,1200,1600,2200 [facility] Last Admin: 08/05/21 08:30 Dose: 4 mg Documented by: Clonidine HCl (Clonidine 0.1 Mg Tab) 0.1 mg PO BID [facility] Last Admin: 08/05/21 08:49 Dose: 0.1 mg Documented by: Enoxaparin Sodium (Enoxaparin 40 Mg/0.4 Ml Syringe) 40 mg SUBCUT DAILY [facility] Last Admin: 08/05/21 08:49 Dose: 40 mg Documented by: Hydroxyzine HCl (Hydroxyzine Hcl 25 Mg Tab) 25 mg PO Q6H [facility] Last Admin: 08/05/21 04:05 Dose: 25 mg Documented by: Ibuprofen (Ibuprofen 600 Mg Tab) 600 mg PO Q6H PRN PRN Reason: Pain (mild 1-3) Last Admin: 08/05/21 08:47 Dose: 600 mg Documented by: Melatonin (Melatonin 3 Mg Tab) 6 mg PO BEDTIME [facility] Last Admin: 08/04/21 20:48 Dose: Not Given Documented by: Ondansetron HCl (Ondansetron 4 Mg Tab.Dis) 4 mg PO Q6H PRN PRN Reason: nausea, able to take PO Pantoprazole Sodium (Pantoprazole 40 Mg Tab.Cr) 40 mg PO DAILY [facility] Last Admin: 08/05/21 08:47 Dose: 40 mg Documented by: Discontinued Medications Hydrocodone Bitart/Acetaminophen (Acetaminophen/Hydrocodone 325-5 Mg Tab) 1 tab PO ONETIME ONE Stop: 07/31/21 20:58 Last Admin: 07/31/21 21:06 Dose: 1 tab Documented by: Buprenorphine (Buprenorphine 8 Mg Tab.Sl) 4 mg SL ONETIME ONE Stop: 08/01/21 09:49 Last Admin: 08/01/21 11:26 Dose: 4 mg Documented by: Buprenorphine (Buprenorphine 8 Mg Tab.Sl) 4 mg SL ONETIME ONE Stop: 08/01/21 14:09 Last Admin: 08/01/21 14:54 Dose: 4 mg Documented by: Buprenorphine (Buprenorphine 8 Mg Tab.Sl) 4 mg SL ONETIME ONE Stop: 08/01/21 20:37 Last Admin: 08/01/21 20:46 Dose: 4 mg Documented by: Buprenorphine (Buprenorphine 8 Mg Tab.Sl) 4 mg SL ONETIME ONE Stop: 08/02/21 11:25 Last Admin: 08/02/21 11:37 Dose: 4 mg Documented by: Buprenorphine (Buprenorphine 8 Mg Tab.Sl) 4 mg SL 0800,1200,1600,2200 [facility] Buprenorphine (Buprenorphine 8 Mg Tab.Sl) 4 mg SL 0800,1200,1600,2200 [facility] Last Admin: 08/03/21 12:38 Dose: 4 mg Documented by: Buprenorphine (Buprenorphine 8 Mg Tab.Sl) 4 mg SL ONETIME ONE Stop: 08/03/21 02:01 Last Admin: 08/04/21 10:49 Dose: Not Given Documented by: Hydroxyzine HCl (Hydroxyzine Hcl 25 Mg Tab) 25 mg PO ONETIME ONE Stop: 07/31/21 20:58 Last Admin: 07/31/21 21:06 Dose: 25 mg Documented by: Sodium Chloride (Normal Saline) 1,000 mls @ 250 mls/hr IV .BOLUS ONE Stop: 08/01/21 00:23 Last Admin: 07/31/21 20:36 Dose: 250 mls/hr Documented by: Lactated Ringer's (Ringers, Lactated) 1,000 mls @ 125 mls/hr IV ASDIRECTED [facility] Last Admin: 08/04/21 18:14 Dose: 125 mls/hr Documented by: Iopamidol (Iopamidol 612 Mg/Ml 50 Ml Sdv) 50 ml IVPUSH ONETIME ONE Stop: 08/01/21 08:31 Last Admin: 08/01/21 10:54 Dose: 97 ml Documented by: Iopamidol (Iopamidol 755 Mg/Ml 100 Ml Bottle) 100 ml IVPUSH ONETIME ONE Stop: 08/03/21 15:05 Last Admin: 08/03/21 15:55 Dose: 75 ml Documented by: Non-Formulary Medication (Aripiprazole) 2 mg PO DAILY [facility] Last Admin: 08/03/21 19:58 Dose: Not Given Documented by: Ondansetron HCl (Ondansetron 4 Mg Tab.Dis) 4 mg PO Q8H [facility] Last Admin: 08/03/21 01:07 Dose: Not Given Documented by: Potassium Chloride (Potassium Chloride 10 Meq Tab.Er) 20 meq PO ONETIME ONE Stop: 07/31/21 22:16 Last Admin: 07/31/21 22:20 Dose: 20 meq Documented by: Zolpidem Tartrate (Zolpidem 5 Mg Tab) 5 mg PO ONETIME ONE Stop: 08/03/21 20:55 Last Admin: 08/03/21 21:33 Dose: 5 mg Documented by: - Exam Physical Findings Comments:: General: Thalia is a 60-year-old woman in no acute distress Oropharynx is clear, mucous membranes are moist Heart: Regular rate and rhythm, no murmurs Lungs: Clear to auscultation throughout Lower extremities: I am able to actually watch her move both lower extremities today. She is moving the left much more than the right. She does not differentiate between sharp or dull on the right but does on the left. Peripheral pulses are intact, she has good perfusion to both legs and feet - Patient Data Result Diagrams: 08/02/21 04:25 08/02/21 04:25 Sepsis Event Note - Evaluation Sepsis Screening Result: No Definite Risk - Focused Exam Vital Signs: Vital Signs Temp Pulse Resp BP BP Pulse Ox Pulse Ox 08/05/21 08:49 140/63 08/05/21 08:47 140/63 08/05/21 07:46 97.9 F 76 16 140/63 90 L 08/05/21 04:00 98.1 F 82 20 136/66 85 L 08/05/21 00:00 97.8 F 83 20 124/70 87 L 87 L - Problem List & Annotations (1) Lower extremity weakness SNOMED Code(s): 284505194, 001781649 Code(s): R29.898 - OTH SYMPTOMS AND SIGNS INVOLVING THE MUSCULOSKELETAL SYSTEM Status: Acute Current Visit: Yes Qualifiers: Laterality: right Qualified Code(s): R29.898 - Other symptoms and signs involving the musculoskeletal system (2) Benzodiazepine dependence, continuous SNOMED Code(s): 396796516, 851753188327365 Code(s): F13.20 - SEDATIVE, HYPNOTIC OR ANXIOLYTIC DEPENDENCE, UNCOMPLICATED Status: Chronic Current Visit: Yes (3) Lumbar disc herniation with radiculopathy SNOMED Code(s): 171533409 Code(s): M51.16 - INTERVERTEBRAL DISC DISORDERS W RADICULOPATHY, LUMBAR REGION Status: Chronic Priority: High Current Visit: No (4) Opiate dependence, continuous SNOMED Code(s): 669760731 Code(s): F11.20 - OPIOID DEPENDENCE, UNCOMPLICATED Status: Chronic Priority: High Current Visit: No (5) Cerebral artery vasospasm SNOMED Code(s): 68531017 Code(s): I67.848 - OTHER CEREBROVASCULAR VASOSPASM AND VASOCONSTRICTION Status: Acute Current Visit: Yes Annotation/Comment:: Severe vasospasm of anterior cerebral artery, secondary to opiod withdrawal, resulting in cerebral ischemia (6) Cerebral ischemia SNOMED Code(s): 822295082 Code(s): I67.82 - CEREBRAL ISCHEMIA Status: Acute Current Visit: Yes Annotation/Comment:: involving distribution of anterior cerebral artery - Problem List Review Problem List Initiated/Reviewed/Updated: Yes - My Orders Last 24 Hours: My Active Orders 08/04/21 22:07 Communication Order [RC] ROUTINE - Plan Plan:: Assessment/Plan: 1. 60-year-old woman with chronic pain syndrome secondary to severe lumbar disc degeneration 2. Opioid dependence secondary to #1 3. Severe major depressive disorder and generalized anxiety disorder secondary to #1 and #2 4. Benzodiazepine dependence secondary to #3 5. 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 She has been stable as far as withdrawal symptoms as well as pain control on 4 doses per day. Per recommendation of neurology, we added a fifth dose at 0200 daily for the next several days, in hopes of decreasing vasospasm that may still be occurring due to opioid withdrawal. -Per recommendation of Dr. Fisher in neurology at [facility], amlodipine was started last night to help decrease vasospasm that may still be occurring. We were not able to get an MRA of her brain, that will have to be done at higher level of care. As this may be a continuing and evolving process, we will still attempt to transfer her to higher level of care for neurology consultation and care. Due to the COVID-19 crisis, none of the surrounding hospitals have availability to take her in transfer. She is on the waiting list at [facility] in [place], as well as [facility] in [facility], and [facility] in [facility]. -With her generalized anxiety as well as her depression, and her long-term dependence on both opioids and benzodiazepines, the sleep issue continues to be a problem for Thalia. I do think she will most likely need both an SSRI as well as an adjunct antipsychotic for anxiety. However, with the neurological issues we are having currently, I am hesitant to start yet another medication, which may complicate issues.
--- NOTE | 2021-08-05 17:12 | PCM.DCSUM1 ---
Discharge Summary - Hospital Course Free Text/Narrative:: Thalia is a 60-year-old woman who was been here for several days with bilateral lower extremity weakness. She has been having physical therapy since her admission. On hospital day #3, MRI of the brain found her to have a large area of ischemia involving the vertices of both cerebral hemispheres. Consultation with multiple neurologists concluded that she is most likely having either a vasospasm or vasculitis of her anterior cerebral artery, leading to large areas of ischemia. This was thought to be possibly due to her recent sudden withdrawal from narcotics. Thalia is a longtime chronic pain medication user as well as benzodiazepine. She was withdrawn from both of those over a week ago. This may possibly explain why she is having intermittent symptoms that improve and then worsen. Because of the - pandemic crisis, they were not able to accept her in transfer for further neurological work-up until hospital day #5. Neurology was able to accept her on day of discharge to [facility] for further evaluation and treatment Diagnosis: Stroke: Yes Modified Jonathon Scale: Sev.Disablility Bedridden,Incont.&Require Constant Nrsg.Care/Attention Modified [place] Scale Score: 5 - Discharge Data Discharge Date: 08/05/21 (Transfer to [facility]) Discharge Disposition: DC/Tfer to Acute Hospital 02 Condition: Good - Referral to Home Health Primary Care Physician: PCP None - Discharge Diagnosis/Problem(s) (1) Lower extremity weakness SNOMED Code(s): 074347380, 155217158 ICD Code: R29.898 - OTH SYMPTOMS AND SIGNS INVOLVING THE MUSCULOSKELETAL SYSTEM Status: Acute Qualifiers: Laterality: right Qualified Code(s): R29.898 - Other symptoms and signs involving the musculoskeletal system (2) Benzodiazepine dependence, continuous SNOMED Code(s): 071471812, [id number] ICD Code: F13.20 - SEDATIVE, HYPNOTIC OR ANXIOLYTIC DEPENDENCE, UNCOMPLICATED Status: Chronic (3) Lumbar disc herniation with radiculopathy SNOMED Code(s): 012523516 ICD Code: M51.16 - INTERVERTEBRAL DISC DISORDERS W RADICULOPATHY, LUMBAR REGION Status: Chronic Priority: High (4) Opiate dependence, continuous SNOMED Code(s): 915852415 ICD Code: F11.20 - OPIOID DEPENDENCE, UNCOMPLICATED Status: Chronic Priority: High (5) Cerebral artery vasospasm SNOMED Code(s): 64361929 ICD Code: I67.848 - OTHER CEREBROVASCULAR VASOSPASM AND VASOCONSTRICTION Status: Acute Problem Details: Severe vasospasm of anterior cerebral artery, secondary to opiod withdrawal, resulting in cerebral ischemia (6) Cerebral ischemia SNOMED Code(s): 749747342 ICD Code: I67.82 - CEREBRAL ISCHEMIA Status: Acute Problem Details: involving distribution of anterior cerebral artery - Patient Summary/Data Consults: Consultations 08/03/21 10:33 Consult to Occupational Therapy [OT Evaluation and Treatment] [CONS] Routine Consult to Physical Therapy [PT Evaluation and Treatment] [CONS] Routine - Discharge Plan *PRESCRIPTION DRUG MONITORING PROGRAM REVIEWED*: Yes *COPY OF PRESCRIPTION DRUG MONITORING REPORT IN PATIENT PARMJIT: No Home Medications: Home Meds cloNIDine [Catapres] 0.1 mg PO BID 07/27/21 [History] ARIPiprazole [Abilify] 2 mg PO DAILY 07/31/21 [History] Dicyclomine [Bentyl] 20 mg PO Q6H 07/31/21 [History] Hydrocodone/Acetaminophen [HYDROcodone-Acetaminophen 5-325 MG] 1 tab PO Q6H 07/31/21 [History] Ondansetron [Zofran ODT] 4 mg PO Q8H 07/31/21 [History] Pantoprazole [ProTONIX] 40 mg PO DAILY 07/31/21 [History] hydrOXYzine HCL [Hydroxyzine HCl] 25 mg PO Q6H 07/31/21 [History] Forms: ED Department Discharge Referrals: PCP,None [Primary Care Provider] - - Discharge Summary/Plan Comment DC Time >30 min.: Yes (45 minutes in transfer preparation and planning) Total # of Minutes for Discharge Time: 45 minutes Discharge Summary/Plan Comment: Discharge diagnoses: 1. 60-year-old woman with bilateral cerebral ischemia involving distribution of the anterior cerebral artery 2. Bilateral lower extremity weakness and paresthesia, secondary to #1 3. Severe lumbar disc degeneration 4. Chronic pain syndrome secondary to #3 5. Major depressive disorder and generalized anxiety disorder, exacerbated by #4 6. History of benzodiazepine abuse 7. History of opioid abuse 8. Chronic obstructive pulmonary disease 9. History of abdominal aorta surgery, we have not yet been able to obtain records from [place], where she had this care, so we do not have additional clinical information - General Info Date of Service: 08/05/21 Admission Dx/Problem (Free Text: Admission Diagnosis/Problem Admission Diagnosis/Problem Weakness Subjective Update: See above summary - Patient Data Vitals - Most Recent: Last Vital Signs Temp 98.7 F 08/05/21 16:00 Pulse 85 08/05/21 16:00 Resp 18 08/05/21 16:00 BP 123/63 08/05/21 16:00 Pulse Ox 92 L 08/05/21 16:00 Weight - Most Recent: 102 lb 9.6 oz I&O - Last 24 hours: Intake & Output 08/05/21 08/05/21 08/05/21 06:59 14:59 22:59 Intake Total 300 Output Total 1300 1550 Balance -1000 -1550 Med Orders - Current: Current Medications Acetaminophen (Acetaminophen 325 Mg Tab) 650 mg PO Q4H PRN PRN Reason: Pain (Mild 1-3)/fever Last Admin: 08/05/21 04:05 Dose: 650 mg Documented by: Amlodipine Besylate (Amlodipine 5 Mg Tab) 5 mg PO DAILY [facility] Last Admin: 08/05/21 08:47 Dose: 5 mg Documented by: Artificial Tears (Polyvinyl Alcohol 1.4% Ophth Soln 15 Ml Bottle) 0 ml EYEBOTH QID PRN PRN Reason: Dry Eyes Last Admin: 08/02/21 22:04 Dose: 1 applic Documented by: Buprenorphine (Buprenorphine 8 Mg Tab.Sl) 4 mg SL QID@0800,1200,1600,2200 [facility] Last Admin: 08/05/21 16:31 Dose: 4 mg Documented by: Clonidine HCl (Clonidine 0.1 Mg Tab) 0.1 mg PO BID [facility] Last Admin: 08/05/21 08:49 Dose: 0.1 mg Documented by: Enoxaparin Sodium (Enoxaparin 40 Mg/0.4 Ml Syringe) 40 mg SUBCUT DAILY [facility] Last Admin: 08/05/21 08:49 Dose: 40 mg Documented by: Hydroxyzine HCl (Hydroxyzine Hcl 25 Mg Tab) 25 mg PO Q6H [facility] Last Admin: 08/05/21 16:32 Dose: 25 mg Documented by: Ibuprofen (Ibuprofen 600 Mg Tab) 600 mg PO Q6H PRN PRN Reason: Pain (mild 1-3) Last Admin: 08/05/21 16:30 Dose: 600 mg Documented by: Melatonin (Melatonin 3 Mg Tab) 6 mg PO BEDTIME [facility] Last Admin: 08/04/21 20:48 Dose: Not Given Documented by: Ondansetron HCl (Ondansetron 4 Mg Tab.Dis) 4 mg PO Q6H PRN PRN Reason: nausea, able to take PO Pantoprazole Sodium (Pantoprazole 40 Mg Tab.Cr) 40 mg PO DAILY [facility] Last Admin: 08/05/21 08:47 Dose: 40 mg Documented by: Discontinued Medications Hydrocodone Bitart/Acetaminophen (Acetaminophen/Hydrocodone 325-5 Mg Tab) 1 tab PO ONETIME ONE Stop: 07/31/21 20:58 Last Admin: 07/31/21 21:06 Dose: 1 tab Documented by: Buprenorphine (Buprenorphine 8 Mg Tab.Sl) 4 mg SL ONETIME ONE Stop: 08/01/21 09:49 Last Admin: 08/01/21 11:26 Dose: 4 mg Documented by: Buprenorphine (Buprenorphine 8 Mg Tab.Sl) 4 mg SL ONETIME ONE Stop: 08/01/21 14:09 Last Admin: 08/01/21 14:54 Dose: 4 mg Documented by: Buprenorphine (Buprenorphine 8 Mg Tab.Sl) 4 mg SL ONETIME ONE Stop: 08/01/21 20:37 Last Admin: 08/01/21 20:46 Dose: 4 mg Documented by: Buprenorphine (Buprenorphine 8 Mg Tab.Sl) 4 mg SL ONETIME ONE Stop: 08/02/21 11:25 Last Admin: 08/02/21 11:37 Dose: 4 mg Documented by: Buprenorphine (Buprenorphine 8 Mg Tab.Sl) 4 mg SL 0800,1200,1600,2200 [facility] Buprenorphine (Buprenorphine 8 Mg Tab.Sl) 4 mg SL 0800,1200,1600,2200 [facility] Last Admin: 08/03/21 12:38 Dose: 4 mg Documented by: Buprenorphine (Buprenorphine 8 Mg Tab.Sl) 4 mg SL ONETIME ONE Stop: 08/03/21 02:01 Last Admin: 08/04/21 10:49 Dose: Not Given Documented by: Hydroxyzine HCl (Hydroxyzine Hcl 25 Mg Tab) 25 mg PO ONETIME ONE Stop: 07/31/21 20:58 Last Admin: 07/31/21 21:06 Dose: 25 mg Documented by: Sodium Chloride (Normal Saline) 1,000 mls @ 250 mls/hr IV .BOLUS ONE Stop: 08/01/21 00:23 Last Admin: 07/31/21 20:36 Dose: 250 mls/hr Documented by: Lactated Ringer's (Ringers, Lactated) 1,000 mls @ 125 mls/hr IV ASDIRECTED [facility] Last Admin: 08/04/21 18:14 Dose: 125 mls/hr Documented by: Iopamidol (Iopamidol 612 Mg/Ml 50 Ml Sdv) 50 ml IVPUSH ONETIME ONE Stop: 08/01/21 08:31 Last Admin: 08/01/21 10:54 Dose: 97 ml Documented by: Iopamidol (Iopamidol 755 Mg/Ml 100 Ml Bottle) 100 ml IVPUSH ONETIME ONE Stop: 08/03/21 15:05 Last Admin: 08/03/21 15:55 Dose: 75 ml Documented by: Non-Formulary Medication (Aripiprazole) 2 mg PO DAILY [facility] Last Admin: 08/03/21 19:58 Dose: Not Given Documented by: Ondansetron HCl (Ondansetron 4 Mg Tab.Dis) 4 mg PO Q8H [facility] Last Admin: 08/03/21 01:07 Dose: Not Given Documented by: Potassium Chloride (Potassium Chloride 10 Meq Tab.Er) 20 meq PO ONETIME ONE Stop: 07/31/21 22:16 Last Admin: 07/31/21 22:20 Dose: 20 meq Documented by: Zolpidem Tartrate (Zolpidem 5 Mg Tab) 5 mg PO ONETIME ONE Stop: 08/03/21 20:55 Last Admin: 08/03/21 21:33 Dose: 5 mg Documented by:
== END 2021-08-05 17:20 | DRG 897 ==
LOC: DL.ED 18:00 → DL.MS 22:13
PROVIDERS: ADMIT Family Medicine; ATTEND Family Medicine
DX: R53.1 Weakness (principal); F19.239 Other psychoactive substance dependence with withdrawal, unspecified; F13.20 Sedative, hypnotic or anxiolytic dependence, uncomplicated; I67.848 Other cerebrovascular vasospasm and vasoconstriction; F11.20 Opioid dependence, uncomplicated; I67.82 Cerebral ischemia; G89.29 Other chronic pain; M54.9 Dorsalgia, unspecified; M51.16 Intervertebral disc disorders with radiculopathy, lumbar region; F41.9 Anxiety disorder, unspecified; R29.898 Other symptoms and signs involving the musculoskeletal system; F41.1 Generalized anxiety disorder; Z20.822 Contact with and (suspected) exposure to COVID-19; H54.7 Unspecified visual loss; J44.9 Chronic obstructive pulmonary disease, unspecified; M19.90 Unspecified osteoarthritis, unspecified site; F32.A Depression, unspecified; K21.9 Gastro-esophageal reflux disease without esophagitis; F45.9 Somatoform disorder, unspecified; Z88.8 Allergy status to other drugs, medicaments and biological substances; Z79.899 Other long term (current) drug therapy; Z90.49 Acquired absence of other specified parts of digestive tract; Z87.891 Personal history of nicotine dependence; Z87.11 Personal history of peptic ulcer disease
CPT/HCPCS: 36415; 80053; 85025; A9270 ×2; J7030; U0002; 51701; 51798; 70496; 70498; 72132; 72148; 84484; 93005; 97110-GP; 97161-GP; 97166-GO; 97530-GO; J1650; J7120; Q9967

== ENCOUNTER 2022-04-18 18:44 | Emergency (ER) | payer MEDICARE, MEDICAID ==
[~2022-04-18 18:44] MED LIST: Ketorolac 30 MG/ML SDV IVPUSH ONE; Ondansetron 4 MG/2 ML SDV IVPUSH ONE
[2022-04-18 19:21] LABS: ANION GAP 12.7 mEq/L (7-13); CHLORIDE,CL 96 mmol/L (98-107); SODIUM,NA 142 mmol/L (136-145)
[2022-04-18 19:30] LABS: ESTIMATED GFR 93 mL/min (>=60)
== END 2022-04-18 19:17 | disposition left against medical advice (07) ==
LOC: DL.ED 18:44
DX: R10.11 Right upper quadrant pain (principal); J44.9 Chronic obstructive pulmonary disease, unspecified; K21.9 Gastro-esophageal reflux disease without esophagitis; Z88.8 Allergy status to other drugs, medicaments and biological substances; Z79.899 Other long term (current) drug therapy; Z90.49 Acquired absence of other specified parts of digestive tract
CPT/HCPCS: 36415; 80053; 80307; 82150; 83605; 83690; 85025; 86140; 96374; 96375; 99282; 99284; J1885; J2405

== ENCOUNTER 2023-09-16 00:29 | Inpatient (IN) | payer MEDICARE, MEDICAID ==
[2023-09-16] MEDS ORDERED: Albuterol/Ipratropium 3.0-0.5 MG/3 ML Neb Soln NEB ONE ×2 (00:44→01:36)
[2023-09-16] MEDS: Sodium Chloride 0.9% 10 ML Syringe FLUSH PRN ×2 (00:58→21:21)
[2023-09-16 01:00] LABS: BASOPHILS PERCENT AUTO 0.2 % (0.0-1.0); EOSINOPHILS PERCENT AUTO 1.9 % (1.0-3.0); HEMATOCRIT 35.5 % (37.0-47.0); HEMOGLOBIN 11.2 g/dL (12.0-16.0); LYMPHOCYTES PERCENT AUTO 10.8 % (20.5-50.1); MEAN CORPUSCULAR HEMOGLOBIN 31.3 pg (27.0-34.0); MEAN CORPUSCULAR HGB CONC 31.5 g/dL (33.0-35.0); MEAN CORPUSCULAR VOLUME 99.2 fL (80-100); MONOCYTES PERCENT AUTO 10.5 % (2-8); NEUTROPHILS PERCENT AUTO 76.6 % (42.2-75.2); PLATELET COUNT,PLT 248 10^3/uL (150-450); RED BLOOD CELL COUNT 3.58 10^6/uL (4.2-5.4); WHITE BLOOD CELL COUNT,WBC 11.3 10^3/uL (5.0-10.0)
[2023-09-16 01:15] LABS: INR 0.9 (0.9-1.2); PROTHROMBIN TIME 9.6 SEC (9.0-12.0)
[2023-09-16 01:24] LABS: B-TYPE NATRIURETIC PEPTIDE,BNP 71 pg/ml (0-100)
[2023-09-16 01:30] LABS: PTT,PARTIAL THROMBOPLSTIN TIME 30.8 SEC (22.0-34.0)
[2023-09-16] MEDS ORDERED: Iopamidol 755 Mg/ML 100 ML Bottle IVPUSH ONE (01:37)
[2023-09-16 01:45] LABS: ALANINE AMINOTRANSFERASE,ALT 16 U/L (14-59); ALBUMIN 2.7 g/dL (3.4-5.0); ALKALINE PHOSPHATASE 86 U/L (46-116); ASPARTATE AMNIOTRANSFERASE,AST 11 U/L (15-37); BILIRUBIN TOTAL 0.3 mg/dL (0.2-1.0); BLOOD UREA NITROGEN,BUN 9 mg/dL (7-18); BUN/CREATININE RATIO 16.1 (No establ ref range); CALCIUM 8.4 mg/dL (8.5-10.1); CARBON DIOXIDE,CO2 31 mmol/L (21-32); CHLORIDE,CL 94 mmol/L (98-107); CREATININE 0.56 mg/dL (0.55-1.02); EST CRCL DRUG DOSING (CG) 75.78 mL/min; GLUCOSE RANDOM 122 mg/dL (70-99); PROTEIN TOTAL,TP 6.5 g/dL (6.4-8.2); SODIUM,NA 133 mmol/L (136-145); TSH ULTRASENSITIVE 1.21 uIU/mL (0.36-3.74)
[2023-09-16 01:46] LABS: A/G RATIO 0.71; C-REACTIVE PROTEIN > 25.00 ng/dL (<=0.50); ESTIMATED GFR 104 mL/min (>=60); ETHANOL BLOOD MEDICAL < 3 mg/dL (0)
[2023-09-16 01:47] LABS: CORONAVIRUS COVID-19 NAA NEGATIVE (NEGATIVE); INFLUENZA A NAA NEGATIVE (NEGATIVE); INFLUENZA B NAA NEGATIVE (NEGATIVE); RESPIRATORY SYNCYTIAL VIR NAA NEGATIVE (NEGATIVE)
[2023-09-16 02:29] LABS: APPEARANCE,URINE CLEAR (CLEAR); BILIRUBIN,URINE NEGATIVE (NEGATIVE); COLOR,URINE YELLOW (YELLOW); GLUCOSE,URINE NEGATIVE (NEGATIVE); KETONES,URINE 40 (NEGATIVE); LEUKOCYTE ESTERASE,URINE NEGATIVE (NEGATIVE); NITRITE,URINE NEGATIVE (NEGATIVE); OCCULT BLOOD,URINE TRACE-INTACT (NEGATIVE); PH,URINE 6.5 (5.0-9.0); PROTEIN,URINE TRACE (NEGATIVE); UROBILINOGEN,URINE 0.2 mg/dL (0.2-1.0)
[2023-09-16 02:32] LABS: BENZODIAZEPINE,URINE POSITIVE (NEGATIVE)
[2023-09-16 02:33] LABS: AMPHETAMINES,URINE NEGATIVE (NEGATIVE); BARBITURATES,URINE NEGATIVE (NEGATIVE); MDMA (ECSTASY), URINE NEGATIVE (NEGATIVE); METHADONE,URINE NEGATIVE (NEGATIVE); METHAMPHETAMINES,URINE NEGATIVE (NEGATIVE); OPIATES,URINE NEGATIVE (NEGATIVE); OXYCODONE,URINE NEGATIVE (NEGATIVE); PHENCYCLIDINE,URINE NEGATIVE (NEGATIVE); TCA,URINE POSITIVE (NEGATIVE)
[2023-09-16 02:39] LABS: BACTERIA,URINE RARE /HPF (0-FEW/HPF); EPITHELIAL CELLS,URINE FEW /HPF (NOT SEEN); RBC,URINE 0-5 /HPF (0-5); WBC,URINE 0-5 /HPF (0-5/HPF)
[2023-09-16] MEDS ORDERED: Levofloxacin/Dextrose 5%-Water 750 MG in Premix Bag 1 BAG IV ONE (04:21)
[2023-09-16] MEDS ORDERED: Albuterol/Ipratropium 3.0-0.5 MG/3 ML Neb Soln NEB PRN ×2 (05:37→05:58)
[2023-09-16] MEDS: Albuterol/Ipratropium 3.0-0.5 MG/3 ML Neb Soln ONE (05:47)
[2023-09-16] MEDS ORDERED: hydrALAZINE 20 MG/ML SDV IVPUSH PRN (05:48)
[2023-09-16] MEDS ORDERED: Metoprolol Tartrate 5 MG/5 ML SDV IVPUSH PRN (05:48)
[2023-09-16] MEDS ORDERED: Sennosides/Docusate Sodium 50-8.6 MG Tab PO PRN (05:58)
[2023-09-16] MEDS ORDERED: Polyethylene Glycol 3350 Powder 17 GM Packet PO PRN (05:58)
[2023-09-16] MEDS ORDERED: Ondansetron 4 MG/2 ML SDV IVPUSH PRN (05:58)
[2023-09-16] MEDS ORDERED: HYDROmorphone 0.5 MG/0.5 ML Syringe IVPUSH PRN (05:58)
[2023-09-16] MEDS ORDERED: Naloxone 2 MG/2 ML Syringe IVPUSH PRN (05:58)
[2023-09-16] MEDS ORDERED: Acetaminophen 325 MG Tab PO PRN (05:58)
[2023-09-16] MEDS ORDERED: Magnesium Hydroxide 400 MG/5 ML Susp 30 ML Cup PO PRN (05:58)
[2023-09-16] MEDS ORDERED: guaiFENesin/Dextromethorphan 100-10 MG/5 ML Soln 5 ML Cup PO PRN (06:13)
[2023-09-16 06:22] LABS: APPEARANCE,URINE CLEAR (CLEAR); BILIRUBIN,URINE NEGATIVE (NEGATIVE); COLOR,URINE YELLOW (YELLOW); GLUCOSE,URINE NEGATIVE (NEGATIVE); KETONES,URINE 15 (NEGATIVE); LEUKOCYTE ESTERASE,URINE SMALL (NEGATIVE); NITRITE,URINE NEGATIVE (NEGATIVE); OCCULT BLOOD,URINE TRACE-INTACT (NEGATIVE); PH,URINE 6.5 (5.0-9.0); PROTEIN,URINE TRACE (NEGATIVE); UROBILINOGEN,URINE 0.2 mg/dL (0.2-1.0)
[2023-09-16 06:31] LABS: EPITHELIAL CELLS,URINE MODERATE /HPF (NOT SEEN)
[2023-09-16 06:32] LABS: BACTERIA,URINE RARE /HPF (0-FEW/HPF); RBC,URINE 0-5 /HPF (0-5); WBC,URINE 20-30 /HPF (0-5/HPF)
[2023-09-16] MEDS: Formoterol/Mometasone 200-5 MCG 8.8 GM Inhaler IH SCH ×4 (08:15→17:12)
[2023-09-16] MEDS: Tiotropium Bromide 4 GM Inhalation Spray (2.5mcg/1 dose; 10 doses) INH SCH (08:20)
[2023-09-16] MEDS: Saccharomyces Boulardii (Probiotic) 250 MG Cap PO SCH ×2 (08:44→21:26)
[2023-09-16] MEDS: methylPREDNISolone Sodium Succinate 125 MG/2 ML SDV IVPUSH SCH ×3 (08:45→21:20)
[2023-09-16] MEDS: cefTRIAXone 1 GM Vial IVPUSH SCH (08:45)
[2023-09-16] MEDS: Azithromycin 500 MG in Sodium Chloride 0.9% 250 ML IV SCH (08:45)
[2023-09-16] MEDS: Nicotine 21 MG/24 Hr Patch TRDERM SCH (08:46)
[2023-09-16] MEDS ORDERED: Acetaminophen/HYDROcodone 325-5 MG Tab PO SCH (09:00)
[2023-09-16] MEDS ORDERED: Non-Formulary Medication 1 Each (Aripiprazole 2 MG Tablet) PO SCH (09:00)
[2023-09-16] MEDS: Albuterol/Ipratropium 3.0-0.5 MG/3 ML Neb Soln NEB SCH ×5 (09:19→21:36)
[2023-09-16] MEDS: hydrOXYzine HCl 25 MG Tab PO SCH ×2 (09:36→15:50)
[2023-09-16] MEDS: Pantoprazole 40 MG Tab.CR PO SCH (09:36)
[2023-09-16] MEDS: guaiFENesin 600 MG Tab.ER PO SCH ×2 (09:38→21:25)
[2023-09-16] MEDS ORDERED: traMADol 50 MG Tab PO PRN (09:43)
[2023-09-16] MEDS ORDERED: Ketorolac 30 MG/ML SDV IVPUSH PRN (09:44)
[2023-09-16] MEDS: NALOXONE SL SCH ×2 (13:32→21:19)
[2023-09-16] MEDS: BUPRENORPHINE SL SCH ×2 (13:32→21:19)
[2023-09-16] MEDS ORDERED: Buprenorphine 8 MG Tab.SL SL SCH (14:00)
[2023-09-16] MEDS ORDERED: Non-Formulary Medication 1 Each (Buprenorphine Hcl/Naloxone Hcl 1 EACH Tab.Subl) SL SCH (14:00)
[2023-09-16] MEDS: QUEtiapine 100 MG Tab PO SCH (21:25)
[2023-09-16] MEDS: Famotidine 20 MG Tab PO SCH (21:26)
[2023-09-16] MEDS: ALPRAZolam 0.5 MG Tab PO SCH (21:26)
[2023-09-16] MEDS: Gabapentin 300 MG Cap PO SCH (21:26)
[2023-09-17] MEDS: hydrOXYzine HCl 25 MG Tab PO SCH ×5 (00:44→18:03)
[2023-09-17] MEDS: Albuterol/Ipratropium 3.0-0.5 MG/3 ML Neb Soln NEB SCH ×6 (03:06→22:58)
[2023-09-17] MEDS: Formoterol/Mometasone 200-5 MCG 8.8 GM Inhaler IH SCH ×2 (05:57→18:04)
[2023-09-17] MEDS: Tiotropium Bromide 4 GM Inhalation Spray (2.5mcg/1 dose; 10 doses) INH SCH (05:58)
[2023-09-17] MEDS: methylPREDNISolone Sodium Succinate 125 MG/2 ML SDV IVPUSH SCH ×3 (06:10→20:42)
[2023-09-17] MEDS: Pantoprazole 40 MG Tab.CR PO SCH (06:10)
[2023-09-17 06:12] LABS: BASOPHILS PERCENT AUTO 0.1 % (0.0-1.0); HEMATOCRIT 35.6 % (37.0-47.0); HEMOGLOBIN 11.1 g/dL (12.0-16.0); LYMPHOCYTES PERCENT AUTO 3.7 % (20.5-50.1); MEAN CORPUSCULAR HEMOGLOBIN 31.1 pg (27.0-34.0); MEAN CORPUSCULAR HGB CONC 31.2 g/dL (33.0-35.0); MEAN CORPUSCULAR VOLUME 99.7 fL (80-100); MONOCYTES PERCENT AUTO 6.3 % (2-8); NEUTROPHILS PERCENT AUTO 89.9 % (42.2-75.2); PLATELET COUNT,PLT 282 10^3/uL (150-450); RED BLOOD CELL COUNT 3.57 10^6/uL (4.2-5.4); WHITE BLOOD CELL COUNT,WBC 16.1 10^3/uL (5.0-10.0)
[2023-09-17 06:37] LABS: ALBUMIN 2.5 g/dL (3.4-5.0); BILIRUBIN TOTAL 0.2 mg/dL (0.2-1.0); BUN/CREATININE RATIO 22.2 (No establ ref range); C-REACTIVE PROTEIN 24.14 ng/dL (<=0.50); CALCIUM 8.7 mg/dL (8.5-10.1); CREATININE 0.45 mg/dL (0.55-1.02); EST CRCL DRUG DOSING (CG) 94.3 mL/min; PROTEIN TOTAL,TP 6.6 g/dL (6.4-8.2)
[2023-09-17 06:44] LABS: A/G RATIO 0.61
[2023-09-17] MEDS ORDERED: Tiotropium Bromide 4 GM Inhalation Spray (2.5mcg/1 dose; 10 doses) INH SCH (07:00)
[2023-09-17] MEDS ORDERED: Potassium Chloride 10 MEQ Tab.ER PO ONE ×2 (08:29→17:00)
[2023-09-17] MEDS ORDERED: Magnesium Sulfate/Water 2 GM in Premix Bag 1 BAG IV ONE ×3 (08:32→21:00)
[2023-09-17] MEDS: Azithromycin 500 MG in Sodium Chloride 0.9% 250 ML IV SCH (10:39)
[2023-09-17] MEDS: cefTRIAXone 1 GM Vial IVPUSH SCH (10:39)
[2023-09-17] MEDS: Famotidine 20 MG Tab PO SCH ×2 (10:40→20:41)
[2023-09-17] MEDS: ALPRAZolam 0.5 MG Tab PO SCH ×2 (10:40→20:41)
[2023-09-17] MEDS: Saccharomyces Boulardii (Probiotic) 250 MG Cap PO SCH ×2 (10:43→20:42)
[2023-09-17] MEDS: guaiFENesin 600 MG Tab.ER PO SCH ×2 (10:45→20:41)
[2023-09-17] MEDS: Nicotine 21 MG/24 Hr Patch TRDERM SCH (10:45)
[2023-09-17] MEDS: FLUoxetine 10 MG Cap PO SCH (10:46)
[2023-09-17] MEDS: BUPRENORPHINE SL SCH ×3 (10:49→20:57)
[2023-09-17] MEDS: NALOXONE SL SCH ×3 (10:49→20:57)
[2023-09-17] MEDS ORDERED: Potassium Chloride 10 MEQ Tab.ER ONE (19:24)
[2023-09-17] MEDS: Gabapentin 300 MG Cap PO SCH (20:41)
[2023-09-17] MEDS: QUEtiapine 100 MG Tab PO SCH (20:41)
[2023-09-18] MEDS: hydrOXYzine HCl 25 MG Tab PO SCH ×3 (00:21→12:59)
[2023-09-18] MEDS: Albuterol/Ipratropium 3.0-0.5 MG/3 ML Neb Soln NEB SCH ×8 (03:04→22:41)
[2023-09-18] MEDS: Formoterol/Mometasone 200-5 MCG 8.8 GM Inhaler IH SCH ×3 (05:20→17:37)
[2023-09-18] MEDS: Tiotropium Bromide 4 GM Inhalation Spray (2.5mcg/1 dose; 10 doses) INH SCH (05:21)
[2023-09-18] MEDS: Pantoprazole 40 MG Tab.CR PO SCH (06:10)
[2023-09-18 06:42] LABS: HEMATOCRIT 35.6 % (37.0-47.0); HEMOGLOBIN 11.2 g/dL (12.0-16.0); LYMPHOCYTES PERCENT AUTO 4.1 % (20.5-50.1); MEAN CORPUSCULAR HGB CONC 31.5 g/dL (33.0-35.0); MEAN CORPUSCULAR VOLUME 98.6 fL (80-100); MONOCYTES PERCENT AUTO 4.1 % (2-8); NEUTROPHILS PERCENT AUTO 91.8 % (42.2-75.2); PLATELET COUNT,PLT 336 10^3/uL (150-450); RED BLOOD CELL COUNT 3.61 10^6/uL (4.2-5.4); WHITE BLOOD CELL COUNT,WBC 22.7 10^3/uL (5.0-10.0)
[2023-09-18 07:19] LABS: ALBUMIN 2.5 g/dL (3.4-5.0); ANION GAP 8.9 mEq/L (7-13); BILIRUBIN TOTAL 0.2 mg/dL (0.2-1.0); BUN/CREATININE RATIO 35.3 (No establ ref range); C-REACTIVE PROTEIN 10.01 ng/dL (<=0.50); CALCIUM 8.5 mg/dL (8.5-10.1); CREATININE 0.51 mg/dL (0.55-1.02); EST CRCL DRUG DOSING (CG) 83.21 mL/min; POTASSIUM,K 4.9 mmol/L (3.5-5.1); PROTEIN TOTAL,TP 6.4 g/dL (6.4-8.2)
[2023-09-18 07:36] LABS: A/G RATIO 0.64
[2023-09-18] MEDS: ALPRAZolam 0.5 MG Tab PO SCH ×2 (09:29→21:02)
[2023-09-18] MEDS: FLUoxetine 10 MG Cap PO SCH (09:29)
[2023-09-18] MEDS: Famotidine 20 MG Tab PO SCH ×2 (09:29→20:49)
[2023-09-18] MEDS: guaiFENesin 600 MG Tab.ER PO SCH ×2 (09:30→20:50)
[2023-09-18] MEDS: Saccharomyces Boulardii (Probiotic) 250 MG Cap PO SCH ×2 (09:30→20:50)
[2023-09-18] MEDS: Nicotine 21 MG/24 Hr Patch TRDERM SCH (09:31)
[2023-09-18] MEDS: cefTRIAXone 1 GM Vial IVPUSH SCH (09:34)
[2023-09-18] MEDS: Azithromycin 500 MG in Sodium Chloride 0.9% 250 ML IV SCH (09:37)
[2023-09-18] MEDS: BUPRENORPHINE SL SCH ×3 (09:51→21:06)
[2023-09-18] MEDS: methylPREDNISolone Sodium Succinate 125 MG/2 ML SDV IVPUSH SCH ×3 (09:51→20:52)
[2023-09-18] MEDS: NALOXONE SL SCH ×3 (09:51→21:06)
[2023-09-18] MEDS ORDERED: hydrOXYzine HCl 25 MG Tab PO PRN (12:14)
[2023-09-18] MEDS: QUEtiapine 100 MG Tab PO SCH (20:49)
[2023-09-18] MEDS: Gabapentin 300 MG Cap PO SCH (20:49)
[2023-09-19] MEDS: Albuterol/Ipratropium 3.0-0.5 MG/3 ML Neb Soln NEB SCH ×3 (02:52→09:26)
[2023-09-19] MEDS: Formoterol/Mometasone 200-5 MCG 8.8 GM Inhaler IH SCH (05:33)
[2023-09-19] MEDS: Tiotropium Bromide 4 GM Inhalation Spray (2.5mcg/1 dose; 10 doses) INH SCH (05:34)
[2023-09-19] MEDS: methylPREDNISolone Sodium Succinate 125 MG/2 ML SDV IVPUSH SCH (06:12)
[2023-09-19] MEDS: Pantoprazole 40 MG Tab.CR PO SCH (06:17)
[2023-09-19 06:39] LABS: HEMATOCRIT 36.5 % (37.0-47.0); HEMOGLOBIN 11.5 g/dL (12.0-16.0); MEAN CORPUSCULAR HEMOGLOBIN 30.8 pg (27.0-34.0); MEAN CORPUSCULAR HGB CONC 31.5 g/dL (33.0-35.0); MEAN CORPUSCULAR VOLUME 97.9 fL (80-100); PLATELET COUNT,PLT 381 10^3/uL (150-450); RED BLOOD CELL COUNT 3.73 10^6/uL (4.2-5.4); WHITE BLOOD CELL COUNT,WBC 20.5 10^3/uL (5.0-10.0)
[2023-09-19 06:49] LABS: LYMPHOCYTES PERCENT AUTO 5.4 % (20.5-50.1); MONOCYTES PERCENT AUTO 5.8 % (2-8); NEUTROPHILS PERCENT AUTO 88.8 % (42.2-75.2)
[2023-09-19 07:00] LABS: ALBUMIN 2.7 g/dL (3.4-5.0); ANION GAP 7.3 mEq/L (7-13); BILIRUBIN TOTAL 0.2 mg/dL (0.2-1.0); BUN/CREATININE RATIO 28.3 (No establ ref range); C-REACTIVE PROTEIN 5.19 ng/dL (<=0.50); CALCIUM 8.5 mg/dL (8.5-10.1); CREATININE 0.6 mg/dL (0.55-1.02); EST CRCL DRUG DOSING (CG) 70.73 mL/min; MAGNESIUM 2.3 mg/dL (1.8-2.4); POTASSIUM,K 4.3 mmol/L (3.5-5.1); PROTEIN TOTAL,TP 6.4 g/dL (6.4-8.2)
[2023-09-19 07:03] LABS: A/G RATIO 0.73
[2023-09-19 07:18] LABS: BAND PERCENT MAN 6 %; LYMPHOCYTES % ATYPICAL MANUAL 2 %; LYMPHOCYTES PERCENT MAN 3 % (20-50); MONOCYTES PERCENT MAN 3 % (2-8); NRBC MANUAL 1 /100WBC; SEG NEUTROPHILS PERCENT MAN 86 % (42-75)
[2023-09-19] MEDS: Albuterol/Ipratropium 3.0-0.5 MG/3 ML Neb Soln ONE (08:56)
[2023-09-19] MEDS: NALOXONE SL SCH (09:06)
[2023-09-19] MEDS: BUPRENORPHINE SL SCH (09:06)
[2023-09-19] MEDS: Azithromycin 500 MG in Sodium Chloride 0.9% 250 ML IV SCH (09:09)
[2023-09-19] MEDS: Nicotine 21 MG/24 Hr Patch TRDERM SCH (09:09)
[2023-09-19] MEDS: guaiFENesin 600 MG Tab.ER PO SCH (09:10)
[2023-09-19] MEDS: Saccharomyces Boulardii (Probiotic) 250 MG Cap PO SCH (09:10)
[2023-09-19] MEDS: ALPRAZolam 0.5 MG Tab PO SCH (09:10)
[2023-09-19] MEDS: FLUoxetine 10 MG Cap PO SCH (09:10)
[2023-09-19] MEDS: cefTRIAXone 1 GM Vial IVPUSH SCH (09:10)
[2023-09-19] MEDS: Famotidine 20 MG Tab PO SCH (09:10)
[2023-09-19] MEDS ORDERED: Albuterol/Ipratropium 3.0-0.5 MG/3 ML Neb Soln NEB SCH (12:00)
== END 2023-09-19 11:50 | disposition home or self-care (01) | DRG 193 ==
LOC: DL.ED 00:29 → DL.MS 04:33 → DL.ED 05:03
PROVIDERS: ADMIT Internal Medicine; ATTEND Internal Medicine
DX: I21.4 Non-ST elevation (NSTEMI) myocardial infarction (principal); J69.0 Pneumonitis due to inhalation of food and vomit; N17.9 Acute kidney failure, unspecified; I11.0 Hypertensive heart disease with heart failure; I50.9 Heart failure, unspecified; R79.89 Other specified abnormal findings of blood chemistry; R09.02 Hypoxemia; E11.9 Type 2 diabetes mellitus without complications; J18.9 Pneumonia, unspecified organism; Z79.84 Long term (current) use of oral hypoglycemic drugs; Z86.16 Personal history of COVID-19; J96.21 Acute and chronic respiratory failure with hypoxia; J44.1 Chronic obstructive pulmonary disease with (acute) exacerbation; J44.0 Chronic obstructive pulmonary disease with (acute) lower respiratory infection; J90 Pleural effusion, not elsewhere classified; E87.1 Hypo-osmolality and hyponatremia; K21.9 Gastro-esophageal reflux disease without esophagitis; M19.90 Unspecified osteoarthritis, unspecified site; F32.A Depression, unspecified; I71.43 Infrarenal abdominal aortic aneurysm, without rupture; I70.1 Atherosclerosis of renal artery; F17.210 Nicotine dependence, cigarettes, uncomplicated; M54.9 Dorsalgia, unspecified; R59.0 Localized enlarged lymph nodes; E87.6 Hypokalemia; E83.42 Hypomagnesemia; E87.8 Other disorders of electrolyte and fluid balance, not elsewhere classified; G89.4 Chronic pain syndrome; Z87.11 Personal history of peptic ulcer disease; Z91.148 Patient's other noncompliance with medication regimen for other reason; Z79.51 Long term (current) use of inhaled steroids; Z79.899 Other long term (current) drug therapy; Z88.8 Allergy status to other drugs, medicaments and biological substances; Z56.0 Unemployment, unspecified; Z11.52 Encounter for screening for COVID-19; Z90.49 Acquired absence of other specified parts of digestive tract; Z98.890 Other specified postprocedural states; Z99.81 Dependence on supplemental oxygen
CPT/HCPCS: 0241U; 36415; 51702; 51798; 71275; 80053; 80305-QW; 80307; 81001; 82306; 83605; 83735; 83880; 84145; 84443; 84484; 85025; 85379; 85610; 85730; 86140; 87040; 87070; 87205; 93010; 94010; 94060; 94640; 94664; 94667; 94668; 94762; 97161-GP; 97165-GO; 99223; 99232; 99233; 99238; 99285; A9270-GY; J0456; J0696; J1956; J2930; J3475; J3490; J7050; J7620-GY; Q9967

== ENCOUNTER 2023-09-27 19:08 | Inpatient (IN) | payer MEDICARE, MEDICAID ==
[2023-09-27] MEDS ORDERED: Sodium Chloride 0.9% 10 ML Syringe FLUSH PRN (19:18)
[2023-09-27 19:51] LABS: BASOPHILS PERCENT AUTO 0.2 % (0.0-1.0); EOSINOPHILS PERCENT AUTO 0.1 % (1.0-3.0); HEMATOCRIT 51.2 % (37.0-47.0); HEMOGLOBIN 16.1 g/dL (12.0-16.0); MEAN CORPUSCULAR HGB CONC 31.4 g/dL (33.0-35.0); MEAN CORPUSCULAR VOLUME 95.5 fL (80-100); MONOCYTES PERCENT AUTO 5.8 % (2-8); NEUTROPHILS PERCENT AUTO 90.9 % (42.2-75.2); PLATELET COUNT,PLT 544 10^3/uL (150-450); RED BLOOD CELL COUNT 5.36 10^6/uL (4.2-5.4); WHITE BLOOD CELL COUNT,WBC 19.9 10^3/uL (5.0-10.0)
[2023-09-27] MEDS ORDERED: Sodium Chloride 0.9% 1,000 ML IV ONE (20:01)
[2023-09-27 20:14] LABS: B-TYPE NATRIURETIC PEPTIDE,BNP 11 pg/ml (0-100)
[2023-09-27 20:15] LABS: LACTIC ACID 1.5 mmol/L (0.4-2.0)
[2023-09-27 20:22] LABS: ALANINE AMINOTRANSFERASE,ALT 20 U/L (14-59); ALBUMIN 2.6 g/dL (3.4-5.0); ALKALINE PHOSPHATASE 92 U/L (46-116); ANION GAP 17.1 mEq/L (7-13); ASPARTATE AMNIOTRANSFERASE,AST 9 U/L (15-37); BILIRUBIN TOTAL 0.3 mg/dL (0.2-1.0); BLOOD UREA NITROGEN,BUN 15 mg/dL (7-18); BUN/CREATININE RATIO 18.8 (No establ ref range); C-REACTIVE PROTEIN 16.08 ng/dL (<=0.50); CALCIUM 8.6 mg/dL (8.5-10.1); CARBON DIOXIDE,CO2 28 mmol/L (21-32); CHLORIDE,CL 95 mmol/L (98-107); EST CRCL DRUG DOSING (CG) 61.09 mL/min; GLUCOSE RANDOM 157 mg/dL (70-99); MAGNESIUM 1.6 mg/dL (1.8-2.4); POTASSIUM,K 4.1 mmol/L (3.5-5.1); PROTEIN TOTAL,TP 7.2 g/dL (6.4-8.2); SODIUM,NA 136 mmol/L (136-145); TSH ULTRASENSITIVE 0.37 uIU/mL (0.36-3.74)
[2023-09-27 20:24] LABS: A/G RATIO 0.57; ESTIMATED GFR 84 mL/min (>=60); ETHANOL BLOOD MEDICAL < 3 mg/dL (0)
[2023-09-27] MEDS ORDERED: Levofloxacin/Dextrose 5%-Water 750 MG in Premix Bag 1 BAG IV ONE (20:26)
[2023-09-27 20:30] LABS: CORONAVIRUS COVID-19 NAA NEGATIVE (NEGATIVE); INFLUENZA A NAA NEGATIVE (NEGATIVE); INFLUENZA B NAA NEGATIVE (NEGATIVE); RESPIRATORY SYNCYTIAL VIR NAA NEGATIVE (NEGATIVE)
[2023-09-27] MEDS ORDERED: Ondansetron 4 MG/2 ML SDV IVPUSH ONE (20:49)
[2023-09-27 20:55] LABS: APPEARANCE,URINE SLIGHTLY CLOUDY (CLEAR); BILIRUBIN,URINE LARGE (NEGATIVE); COLOR,URINE YELLOW (YELLOW); GLUCOSE,URINE NEGATIVE (NEGATIVE); KETONES,URINE 40 (NEGATIVE); LEUKOCYTE ESTERASE,URINE NEGATIVE (NEGATIVE); NITRITE,URINE NEGATIVE (NEGATIVE); OCCULT BLOOD,URINE SMALL (NEGATIVE); PH,URINE 5.5 (5.0-9.0); PROTEIN,URINE 100 (NEGATIVE); UROBILINOGEN,URINE 0.2 mg/dL (0.2-1.0)
[2023-09-27 21:00] LABS: AMPHETAMINES,URINE NEGATIVE (NEGATIVE); BARBITURATES,URINE NEGATIVE (NEGATIVE); BENZODIAZEPINE,URINE POSITIVE (NEGATIVE); MDMA (ECSTASY), URINE NEGATIVE (NEGATIVE); METHADONE,URINE NEGATIVE (NEGATIVE); METHAMPHETAMINES,URINE NEGATIVE (NEGATIVE); OPIATES,URINE NEGATIVE (NEGATIVE); OXYCODONE,URINE NEGATIVE (NEGATIVE); PHENCYCLIDINE,URINE NEGATIVE (NEGATIVE); TCA,URINE POSITIVE (NEGATIVE)
[2023-09-27 21:11] LABS: EPITHELIAL CELLS,URINE MODERATE /HPF (NOT SEEN)
[2023-09-27 21:12] LABS: AMORPHOUS SEDIMENT,URINE FEW /HPF (NOT SEEN); BACTERIA,URINE MODERATE /HPF (0-FEW/HPF); HYALINE CASTS,URINE MODERATE; MUCUS,URINE MANY /LPF (NOT SEEN)
[2023-09-27] MEDS ORDERED: Ketorolac 30 MG/ML SDV IVPUSH PRN (21:50)
[2023-09-27] MEDS ORDERED: Magnesium Hydroxide 400 MG/5 ML Susp 30 ML Cup PO PRN (21:50)
[2023-09-27] MEDS ORDERED: Albuterol/Ipratropium 3.0-0.5 MG/3 ML Neb Soln NEB PRN (21:50)
[2023-09-27] MEDS ORDERED: Polyethylene Glycol 3350 Powder 17 GM Packet PO PRN (21:50)
[2023-09-27] MEDS ORDERED: Sennosides/Docusate Sodium 50-8.6 MG Tab PO PRN (21:50)
[2023-09-27] MEDS ORDERED: cloNIDine 0.1 MG Tab PO ONE (21:54)
[2023-09-27] MEDS ORDERED: QUEtiapine 100 MG Tab PO ONE (21:56)
[2023-09-27] MEDS ORDERED: Gabapentin 300 MG Cap PO ONE (21:57)
[2023-09-27] MEDS ORDERED: guaiFENesin/Dextromethorphan 100-10 MG/5 ML Soln 5 ML Cup PO PRN (21:57)
[2023-09-27] MEDS ORDERED: Azithromycin 500 MG in Sodium Chloride 0.9% 250 ML IV ONE (21:58)
[2023-09-27] MEDS ORDERED: Nicotine 21 MG/24 Hr Patch TRDERM ONE (22:00)
[2023-09-27] MEDS ORDERED: Pantoprazole 40 MG Vial IVPUSH ONE (22:03)
[2023-09-27] MEDS ORDERED: traMADol 50 MG Tab PO PRN (22:03)
[2023-09-27] MEDS ORDERED: Magnesium Sulfate/Water 2 GM in Premix Bag 1 BAG IV ONE (22:04)
[2023-09-27] MEDS ORDERED: Glucagon,Human Recombinant 1 MG Vial IM PRN (22:06)
[2023-09-27] MEDS ORDERED: 50% Dextrose in Water 50 ML Syringe IVPUSH PRN (22:06)
[2023-09-27] MEDS ORDERED: Aminophylline 500 MG in Sodium Chloride 0.9% 500 ML IV SCH ×4 (22:15)
[2023-09-27] MEDS ORDERED: hydrALAZINE 20 MG/ML SDV IVPUSH PRN (22:26)
[2023-09-27] MEDS ORDERED: Metoprolol Tartrate 5 MG/5 ML SDV IVPUSH PRN (22:26)
[2023-09-27] MEDS ORDERED: MVI, Adult with Vitamin K 10 ML, Folic Acid 1 MG, Thiamine 100 MG in Lactated Ringers 1... IV ONE ×4 (22:30)
[2023-09-27] MEDS ORDERED: SODIUM CHLORIDE 0.9% IV SCH ×3 (22:36→23:32)
[2023-09-27] MEDS ORDERED: AMINOPHYLLINE IV SCH ×3 (22:36→23:32)
[2023-09-27] MEDS ORDERED: Sodium Chloride 0.9% 1,000 ML IV SCH (22:45)
[2023-09-27] MEDS: Ondansetron 4 MG/2 ML SDV IVPUSH PRN (22:50)
[2023-09-27] MEDS: guaiFENesin 600 MG Tab.ER PO SCH (22:54)
[2023-09-27] MEDS: Saccharomyces Boulardii (Probiotic) 250 MG Cap PO SCH (22:54)
[2023-09-27] MEDS: ALPRAZolam 0.5 MG Tab PO SCH (22:56)
[2023-09-27] MEDS: methylPREDNISolone Sodium Succinate 125 MG/2 ML SDV IVPUSH SCH (22:56)
[2023-09-27] MEDS: Piperacillin/Tazobactam 4.5 GM in Sodium Chloride 0.9% 100 ML IV SCH (23:29)
[2023-09-28] MEDS: methylPREDNISolone Sodium Succinate 125 MG/2 ML SDV IVPUSH SCH ×4 (04:00→22:32)
[2023-09-28] MEDS: Formoterol/Mometasone 200-5 MCG 8.8 GM Inhaler IH SCH ×3 (05:31→17:20)
[2023-09-28] MEDS: Pantoprazole 40 MG Tab.CR PO SCH ×2 (05:31→17:07)
[2023-09-28] MEDS: Piperacillin/Tazobactam 4.5 GM in Sodium Chloride 0.9% 100 ML IV SCH ×3 (05:32→17:03)
[2023-09-28 06:58] LABS: BASOPHILS PERCENT AUTO 0.1 % (0.0-1.0); EOSINOPHILS PERCENT AUTO 0.4 % (1.0-3.0); HEMATOCRIT 37.1 % (37.0-47.0); LYMPHOCYTES PERCENT AUTO 3.7 % (20.5-50.1); MEAN CORPUSCULAR HGB CONC 32.3 g/dL (33.0-35.0); MEAN CORPUSCULAR VOLUME 95.9 fL (80-100); MONOCYTES PERCENT AUTO 1.3 % (2-8); NEUTROPHILS PERCENT AUTO 94.5 % (42.2-75.2); PLATELET COUNT,PLT 358 10^3/uL (150-450); RED BLOOD CELL COUNT 3.87 10^6/uL (4.2-5.4); WHITE BLOOD CELL COUNT,WBC 12.2 10^3/uL (5.0-10.0)
[2023-09-28 06:59] LABS: ALBUMIN 1.7 g/dL (3.4-5.0); ANION GAP 11.3 mEq/L (7-13); BILIRUBIN TOTAL 0.4 mg/dL (0.2-1.0); BUN/CREATININE RATIO 28.8 (No establ ref range); C-REACTIVE PROTEIN 11.54 ng/dL (<=0.50); CALCIUM 7.1 mg/dL (8.5-10.1); CREATININE 0.52 mg/dL (0.55-1.02); EST CRCL DRUG DOSING (CG) 81.61 mL/min; MAGNESIUM 2.1 mg/dL (1.8-2.4); POTASSIUM,K 4.3 mmol/L (3.5-5.1); PROTEIN TOTAL,TP 4.9 g/dL (6.4-8.2)
[2023-09-28 07:03] LABS: A/G RATIO 0.53
[2023-09-28] MEDS ORDERED: Nicotine 21 MG/24 Hr Patch TRDERM SCH (09:00)
[2023-09-28] MEDS ORDERED: Tiotropium Bromide 4 GM Inhalation Spray (2.5mcg/1 dose; 10 doses) INH SCH (09:00)
[2023-09-28] MEDS: Theophylline 300 MG Tab.ER PO SCH ×2 (09:42→20:54)
[2023-09-28] MEDS: ALPRAZolam 0.5 MG Tab PO SCH ×2 (09:42→20:54)
[2023-09-28] MEDS: Saccharomyces Boulardii (Probiotic) 250 MG Cap PO SCH ×2 (09:42→20:54)
[2023-09-28] MEDS: FLUoxetine 10 MG Cap PO SCH (09:42)
[2023-09-28] MEDS: Nicotine 21 MG/24 Hr Patch TRDERM SCH (09:42)
[2023-09-28] MEDS: guaiFENesin 600 MG Tab.ER PO SCH ×2 (09:42→20:54)
[2023-09-28] MEDS: Insulin Lispro 100 Units/ML 3 ML Vial SUBCUT SCH ×3 (09:43→17:10)
[2023-09-28] MEDS: Azithromycin 500 MG in Sodium Chloride 0.9% 250 ML IV SCH (09:43)
[2023-09-28] MEDS: Albuterol/Ipratropium 3.0-0.5 MG/3 ML Neb Soln NEB SCH ×3 (11:08→17:20)
[2023-09-28] MEDS: Tiotropium Bromide 4 GM Inhalation Spray (2.5mcg/1 dose; 10 doses) INH SCH (11:20)
[2023-09-28] MEDS: BUPRENORPHINE SL SCH ×2 (13:55→20:54)
[2023-09-28] MEDS: NALOXONE SL SCH ×2 (13:55→20:54)
[2023-09-28] MEDS: Gabapentin 300 MG Cap PO SCH (20:54)
[2023-09-28] MEDS: QUEtiapine 100 MG Tab PO SCH (20:54)
[2023-09-29] MEDS: Piperacillin/Tazobactam 4.5 GM in Sodium Chloride 0.9% 100 ML IV SCH ×4 (00:03→17:22)
[2023-09-29] MEDS: Albuterol/Ipratropium 3.0-0.5 MG/3 ML Neb Soln NEB SCH ×5 (00:06→17:17)
[2023-09-29] MEDS: methylPREDNISolone Sodium Succinate 125 MG/2 ML SDV IVPUSH SCH ×3 (04:15→20:46)
[2023-09-29] MEDS: Formoterol/Mometasone 200-5 MCG 8.8 GM Inhaler IH SCH ×3 (05:25→17:16)
[2023-09-29] MEDS: Tiotropium Bromide 4 GM Inhalation Spray (2.5mcg/1 dose; 10 doses) INH SCH (05:25)
[2023-09-29 05:50] LABS: BASOPHILS PERCENT AUTO 0.1 % (0.0-1.0); HEMATOCRIT 32.9 % (37.0-47.0); HEMOGLOBIN 10.4 g/dL (12.0-16.0); MEAN CORPUSCULAR HEMOGLOBIN 30.6 pg (27.0-34.0); MEAN CORPUSCULAR HGB CONC 31.6 g/dL (33.0-35.0); MEAN CORPUSCULAR VOLUME 96.8 fL (80-100); MONOCYTES PERCENT AUTO 3.6 % (2-8); NEUTROPHILS PERCENT AUTO 92.3 % (42.2-75.2); PLATELET COUNT,PLT 422 10^3/uL (150-450)
[2023-09-29] MEDS: Pantoprazole 40 MG Tab.CR PO SCH ×2 (06:02→17:22)
[2023-09-29 06:06] LABS: ALBUMIN 2.3 g/dL (3.4-5.0); ANION GAP 9.5 mEq/L (7-13); BILIRUBIN TOTAL 0.2 mg/dL (0.2-1.0); BUN/CREATININE RATIO 15.4 (No establ ref range); C-REACTIVE PROTEIN 6.97 ng/dL (<=0.50); CREATININE 0.52 mg/dL (0.55-1.02); EST CRCL DRUG DOSING (CG) 81.61 mL/min; MAGNESIUM 2.1 mg/dL (1.8-2.4); POTASSIUM,K 3.5 mmol/L (3.5-5.1); PROTEIN TOTAL,TP 5.9 g/dL (6.4-8.2)
[2023-09-29 06:07] LABS: A/G RATIO 0.64
[2023-09-29] MEDS: Azithromycin 500 MG in Sodium Chloride 0.9% 250 ML IV SCH (09:16)
[2023-09-29] MEDS: Insulin Lispro 100 Units/ML 3 ML Vial SUBCUT SCH ×3 (09:19→17:39)
[2023-09-29] MEDS: Nicotine 21 MG/24 Hr Patch TRDERM SCH (09:20)
[2023-09-29] MEDS: FLUoxetine 10 MG Cap PO SCH (09:21)
[2023-09-29] MEDS: guaiFENesin 600 MG Tab.ER PO SCH ×2 (09:21→20:40)
[2023-09-29] MEDS: Saccharomyces Boulardii (Probiotic) 250 MG Cap PO SCH ×2 (09:22→20:40)
[2023-09-29] MEDS: BUPRENORPHINE SL SCH ×3 (09:22→21:19)
[2023-09-29] MEDS: NALOXONE SL SCH ×3 (09:22→21:19)
[2023-09-29] MEDS: ALPRAZolam 0.5 MG Tab PO SCH ×2 (09:22→20:40)
[2023-09-29] MEDS: Theophylline 300 MG Tab.ER PO SCH ×2 (09:22→20:41)
[2023-09-29] MEDS: QUEtiapine 100 MG Tab PO SCH (20:41)
[2023-09-29] MEDS: Gabapentin 300 MG Cap PO SCH (20:42)
[2023-09-29] MEDS: Acetaminophen 325 MG Tab PO PRN (20:42)
[2023-09-30] MEDS: Piperacillin/Tazobactam 4.5 GM in Sodium Chloride 0.9% 100 ML IV SCH ×4 (01:00→17:14)
[2023-09-30] MEDS: Albuterol/Ipratropium 3.0-0.5 MG/3 ML Neb Soln NEB SCH ×5 (01:05→17:39)
[2023-09-30] MEDS: Pantoprazole 40 MG Tab.CR PO SCH ×2 (05:02→15:05)
[2023-09-30] MEDS: Formoterol/Mometasone 200-5 MCG 8.8 GM Inhaler IH SCH ×3 (05:12→17:39)
[2023-09-30] MEDS: Tiotropium Bromide 4 GM Inhalation Spray (2.5mcg/1 dose; 10 doses) INH SCH (05:12)
[2023-09-30 06:31] LABS: BASOPHILS PERCENT AUTO 0.1 % (0.0-1.0); HEMATOCRIT 32.5 % (37.0-47.0); HEMOGLOBIN 10.1 g/dL (12.0-16.0); LYMPHOCYTES PERCENT AUTO 4.9 % (20.5-50.1); MEAN CORPUSCULAR HEMOGLOBIN 30.2 pg (27.0-34.0); MEAN CORPUSCULAR HGB CONC 31.1 g/dL (33.0-35.0); MEAN CORPUSCULAR VOLUME 97.3 fL (80-100); MONOCYTES PERCENT AUTO 5.7 % (2-8); NEUTROPHILS PERCENT AUTO 89.3 % (42.2-75.2); PLATELET COUNT,PLT 418 10^3/uL (150-450); RED BLOOD CELL COUNT 3.34 10^6/uL (4.2-5.4); WHITE BLOOD CELL COUNT,WBC 21.4 10^3/uL (5.0-10.0)
[2023-09-30 06:50] LABS: ALBUMIN 2.5 g/dL (3.4-5.0); BILIRUBIN TOTAL 0.4 mg/dL (0.2-1.0); BUN/CREATININE RATIO 15.8 (No establ ref range); C-REACTIVE PROTEIN 3.02 ng/dL (<=0.50); CALCIUM 8.2 mg/dL (8.5-10.1); CREATININE 0.57 mg/dL (0.55-1.02); EST CRCL DRUG DOSING (CG) 74.45 mL/min; MAGNESIUM 1.9 mg/dL (1.8-2.4)
[2023-09-30 06:56] LABS: A/G RATIO 0.71
[2023-09-30] MEDS: methylPREDNISolone Sodium Succinate 125 MG/2 ML SDV IVPUSH SCH ×4 (08:12→20:13)
[2023-09-30] MEDS: Saccharomyces Boulardii (Probiotic) 250 MG Cap PO SCH ×2 (08:39→20:16)
[2023-09-30] MEDS: Furosemide 20 MG Tab PO SCH (08:40)
[2023-09-30] MEDS: FLUoxetine 10 MG Cap PO SCH (08:40)
[2023-09-30] MEDS: ALPRAZolam 0.5 MG Tab PO SCH ×2 (08:40→20:16)
[2023-09-30] MEDS: Theophylline 300 MG Tab.ER PO SCH ×2 (08:40→20:16)
[2023-09-30] MEDS: guaiFENesin 600 MG Tab.ER PO SCH ×2 (08:40→20:16)
[2023-09-30] MEDS: Insulin Lispro 100 Units/ML 3 ML Vial SUBCUT SCH ×3 (08:41→17:04)
[2023-09-30] MEDS: NALOXONE SL SCH ×3 (08:51→20:18)
[2023-09-30] MEDS: BUPRENORPHINE SL SCH ×3 (08:51→20:18)
[2023-09-30] MEDS: Nicotine 21 MG/24 Hr Patch TRDERM SCH (09:24)
[2023-09-30] MEDS: Azithromycin 500 MG in Sodium Chloride 0.9% 250 ML IV SCH (09:25)
[2023-09-30] MEDS ORDERED: Potassium Chloride 10 MEQ Tab.ER PO ONE (11:00)
[2023-09-30] MEDS: Ondansetron 4 MG/2 ML SDV IVPUSH PRN (17:24)
[2023-09-30] MEDS: Acetaminophen 325 MG Tab PO PRN (20:14)
[2023-09-30] MEDS: Gabapentin 300 MG Cap PO SCH (20:16)
[2023-09-30] MEDS: QUEtiapine 100 MG Tab PO SCH (20:16)
[2023-10-01] MEDS: Piperacillin/Tazobactam 4.5 GM in Sodium Chloride 0.9% 100 ML IV SCH ×2 (00:40→06:06)
[2023-10-01] MEDS: Albuterol/Ipratropium 3.0-0.5 MG/3 ML Neb Soln NEB SCH ×3 (00:42→11:46)
[2023-10-01] MEDS: Formoterol/Mometasone 200-5 MCG 8.8 GM Inhaler IH SCH (05:43)
[2023-10-01] MEDS: Tiotropium Bromide 4 GM Inhalation Spray (2.5mcg/1 dose; 10 doses) INH SCH (05:43)
[2023-10-01] MEDS: Pantoprazole 40 MG Tab.CR PO SCH (06:06)
[2023-10-01 06:13] LABS: HEMATOCRIT 32.9 % (37.0-47.0); HEMOGLOBIN 10.3 g/dL (12.0-16.0); MEAN CORPUSCULAR HEMOGLOBIN 30.5 pg (27.0-34.0); MEAN CORPUSCULAR HGB CONC 31.3 g/dL (33.0-35.0); MEAN CORPUSCULAR VOLUME 97.3 fL (80-100); PLATELET COUNT,PLT 410 10^3/uL (150-450); RED BLOOD CELL COUNT 3.38 10^6/uL (4.2-5.4); WHITE BLOOD CELL COUNT,WBC 14.4 10^3/uL (5.0-10.0)
[2023-10-01 06:26] LABS: BASOPHILS PERCENT AUTO 0.1 % (0.0-1.0); LYMPHOCYTES PERCENT AUTO 7.5 % (20.5-50.1); MONOCYTES PERCENT AUTO 7.4 % (2-8)
[2023-10-01 06:35] LABS: ALBUMIN 2.6 g/dL (3.4-5.0); ANION GAP 10.3 mEq/L (7-13); BILIRUBIN TOTAL 0.3 mg/dL (0.2-1.0); BUN/CREATININE RATIO 15.1 (No establ ref range); C-REACTIVE PROTEIN 2.5 ng/dL (<=0.50); CALCIUM 8.3 mg/dL (8.5-10.1); CREATININE 0.53 mg/dL (0.55-1.02); EST CRCL DRUG DOSING (CG) 80.07 mL/min; MAGNESIUM 1.9 mg/dL (1.8-2.4); POTASSIUM,K 3.3 mmol/L (3.5-5.1); PROTEIN TOTAL,TP 6.2 g/dL (6.4-8.2)
[2023-10-01 06:36] LABS: A/G RATIO 0.72
[2023-10-01] MEDS: methylPREDNISolone Sodium Succinate 125 MG/2 ML SDV IVPUSH SCH (07:29)
[2023-10-01 07:42] LABS: LYMPHOCYTES PERCENT MAN 11 % (20-50); MONOCYTES PERCENT MAN 4 % (2-8); SEG NEUTROPHILS PERCENT MAN 85 % (42-75)
[2023-10-01] MEDS: Insulin Lispro 100 Units/ML 3 ML Vial SUBCUT SCH (07:58)
[2023-10-01] MEDS ORDERED: Fluconazole 100 MG Tab PO ONE (09:24)
[2023-10-01] MEDS ORDERED: Potassium Chloride 10 MEQ Tab.ER PO ONE (09:26)
[2023-10-01] MEDS: ALPRAZolam 0.5 MG Tab PO SCH (09:55)
[2023-10-01] MEDS: BUPRENORPHINE SL SCH (09:55)
[2023-10-01] MEDS: Nicotine 21 MG/24 Hr Patch TRDERM SCH (09:55)
[2023-10-01] MEDS: NALOXONE SL SCH (09:55)
[2023-10-01] MEDS: FLUoxetine 10 MG Cap PO SCH (09:56)
[2023-10-01] MEDS: Furosemide 20 MG Tab PO SCH (09:56)
[2023-10-01] MEDS: Theophylline 300 MG Tab.ER PO SCH (09:56)
[2023-10-01] MEDS: Saccharomyces Boulardii (Probiotic) 250 MG Cap PO SCH (09:56)
[2023-10-01] MEDS ORDERED: Azithromycin 250 MG Tab PO ONE (09:56)
[2023-10-01] MEDS: guaiFENesin 600 MG Tab.ER PO SCH (09:57)
[2023-10-01] MEDS: Azithromycin 500 MG in Sodium Chloride 0.9% 250 ML IV SCH (09:58)
== END 2023-10-01 12:28 | disposition home or self-care (01) | DRG 871 ==
LOC: DL.ED 19:08 → DL.MS 20:52
PROVIDERS: ADMIT Internal Medicine; ATTEND Internal Medicine
DX: A41.9 Sepsis, unspecified organism (principal); J18.9 Pneumonia, unspecified organism; J96.21 Acute and chronic respiratory failure with hypoxia; J44.0 Chronic obstructive pulmonary disease with (acute) lower respiratory infection; J44.1 Chronic obstructive pulmonary disease with (acute) exacerbation; H54.7 Unspecified visual loss; K21.9 Gastro-esophageal reflux disease without esophagitis; R59.0 Localized enlarged lymph nodes; R73.9 Hyperglycemia, unspecified; T38.0X5A Adverse effect of glucocorticoids and synthetic analogues, initial encounter; M19.90 Unspecified osteoarthritis, unspecified site; D75.839 Thrombocytosis, unspecified; E87.8 Other disorders of electrolyte and fluid balance, not elsewhere classified; E83.42 Hypomagnesemia; E86.0 Dehydration; G89.4 Chronic pain syndrome; G62.9 Polyneuropathy, unspecified; M54.9 Dorsalgia, unspecified; E88.09 Other disorders of plasma-protein metabolism, not elsewhere classified; F32.A Depression, unspecified; F41.9 Anxiety disorder, unspecified; G47.00 Insomnia, unspecified; Z87.11 Personal history of peptic ulcer disease; Z91.148 Patient's other noncompliance with medication regimen for other reason; Z11.52 Encounter for screening for COVID-19; J44.9 Chronic obstructive pulmonary disease, unspecified; Z87.891 Personal history of nicotine dependence; Z88.8 Allergy status to other drugs, medicaments and biological substances; Z79.899 Other long term (current) drug therapy; Z20.822 Contact with and (suspected) exposure to COVID-19
CPT/HCPCS: 0241U; 36415; 51702; 71045; 80053; 80305; 80307; 81001; 82550; 82947; 83605; 83735; 83880; 84145; 84443; 84484; 85025; 86140; 87040; 87070; 87205; 93005; 93010; 94010; 94060; 94640; 94667; 94668; 94760; 94762; 97110; 97116; 97161; 97165; 97530; 99222; 99232; 99238; 99284; A9270-GY; C9113; J0456; J1815-GY; J1956; J2405; J2543; J2930; J3411; J3475; J3490; J7030; J7050; J7120; J7620-GY

== ENCOUNTER 2024-01-14 11:03 | Emergency (ER) | payer MEDICARE, MEDICAID ==
[2024-01-14] MEDS: Sodium Chloride 0.9% 1,000 ML IV ONE (11:10)
[2024-01-14] MEDS ORDERED: Benzocaine 20% Topical Spray UD MUCMEM ONE (11:12)
[2024-01-14 11:17] LABS: BASOPHILS PERCENT AUTO 0.3 % (0.0-1.0); EOSINOPHILS PERCENT AUTO 0.1 % (1.0-3.0); HEMATOCRIT 45.1 % (37.0-47.0); HEMOGLOBIN 13.7 g/dL (12.0-16.0); LYMPHOCYTES PERCENT AUTO 7.5 % (20.5-50.1); MEAN CORPUSCULAR HEMOGLOBIN 30.3 pg (27.0-34.0); MEAN CORPUSCULAR HGB CONC 30.4 g/dL (33.0-35.0); MEAN CORPUSCULAR VOLUME 99.8 fL (80-100); MONOCYTES PERCENT AUTO 6.4 % (2-8); NEUTROPHILS PERCENT AUTO 85.7 % (42.2-75.2); PLATELET COUNT,PLT 351 10^3/uL (150-450); RED BLOOD CELL COUNT 4.52 10^6/uL (4.2-5.4); WHITE BLOOD CELL COUNT,WBC 14.7 10^3/uL (5.0-10.0)
[2024-01-14] MEDS: Sodium Chloride 0.9% 10 ML Syringe FLUSH PRN (11:20)
[2024-01-14 11:34] LABS: PROTHROMBIN TIME 10.6 SEC (9.0-12.0); PTT,PARTIAL THROMBOPLSTIN TIME 25.1 SEC (22.0-34.0)
[2024-01-14 11:42] LABS: LACTIC ACID 12.8 mmol/L (0.4-2.0)
[2024-01-14 11:46] LABS: A/G RATIO 1.1; ALANINE AMINOTRANSFERASE,ALT 16 U/L (14-59); ALBUMIN 4.3 g/dL (3.4-5.0); ALKALINE PHOSPHATASE 93 U/L (46-116); ANION GAP 22.7 mEq/L (7-13); ASPARTATE AMNIOTRANSFERASE,AST 20 U/L (15-37); BILIRUBIN TOTAL 0.3 mg/dL (0.2-1.0); BLOOD UREA NITROGEN,BUN 10 mg/dL (7-18); C-REACTIVE PROTEIN 0.82 ng/dL (<=0.50); CALCIUM 9.4 mg/dL (8.5-10.1); CARBON DIOXIDE,CO2 24 mmol/L (21-32); CHLORIDE,CL 99 mmol/L (98-107); CREATINE KINASE,CK 290 U/L (16-191); GLUCOSE RANDOM 152 mg/dL (70-99); MAGNESIUM 1.9 mg/dL (1.8-2.4); PHOSPHORUS 3.5 mg/dL (2.6-4.7); POTASSIUM,K 2.7 mmol/L (3.5-5.1); PROTEIN TOTAL,TP 8.1 g/dL (6.4-8.2); SODIUM,NA 143 mmol/L (136-145); TSH ULTRASENSITIVE 1.76 uIU/mL (0.36-3.74)
[2024-01-14 11:47] LABS: ESTIMATED GFR 64 mL/min (>=60); ETHANOL BLOOD MEDICAL < 3 mg/dL (0)
[2024-01-14 11:48] LABS: APPEARANCE,URINE CLEAR (CLEAR); BILIRUBIN,URINE NEGATIVE (NEGATIVE); COLOR,URINE YELLOW (YELLOW); GLUCOSE,URINE NEGATIVE (NEGATIVE); KETONES,URINE 15 (NEGATIVE); LEUKOCYTE ESTERASE,URINE NEGATIVE (NEGATIVE); NITRITE,URINE NEGATIVE (NEGATIVE); OCCULT BLOOD,URINE MODERATE (NEGATIVE); PROTEIN,URINE >=300 (NEGATIVE); UROBILINOGEN,URINE 0.2 mg/dL (0.2-1.0)
[2024-01-14 11:51] LABS: AMPHETAMINES,URINE NEGATIVE (NEGATIVE); BARBITURATES,URINE NEGATIVE (NEGATIVE); BENZODIAZEPINE,URINE POSITIVE (NEGATIVE); MDMA (ECSTASY), URINE NEGATIVE (NEGATIVE); METHADONE,URINE NEGATIVE (NEGATIVE); METHAMPHETAMINES,URINE NEGATIVE (NEGATIVE); OPIATES,URINE NEGATIVE (NEGATIVE); OXYCODONE,URINE NEGATIVE (NEGATIVE); PHENCYCLIDINE,URINE NEGATIVE (NEGATIVE); TCA,URINE NEGATIVE (NEGATIVE)
[2024-01-14 11:56] LABS: BACTERIA,URINE FEW /HPF (0-FEW/HPF); EPITHELIAL CELLS,URINE OCCASIONAL /HPF (NOT SEEN); GRANULAR CASTS,URINE RARE; HYALINE CASTS,URINE RARE; MUCUS,URINE FEW /LPF (NOT SEEN); WBC,URINE 0-5 /HPF (0-5/HPF)
[2024-01-14] MEDS ORDERED: Sodium Chloride 0.9% 1,000 ML IV ONE (12:15)
[2024-01-14] MEDS: Iopamidol 755 Mg/ML 100 ML Bottle IVPUSH ONE (12:17)
[2024-01-14] MEDS: NS with KCl 40mEq 1,000 ML IV SCH (12:20)
[2024-01-14] MEDS: cefTRIAXone 1 GM Vial IVPUSH ONE (12:25)
[2024-01-14] MEDS: Azithromycin 500 MG in Sodium Chloride 0.9% 250 ML IV ONE (12:28)
[2024-01-14] MEDS: levETIRAcetam in NaCl (iso-os) 1,000 MG in Premix Bag 1 BAG IV ONE (13:20)
[2024-01-14 13:32] LABS: O2 DELIVERY DEVICE RESUSCITATION BAG
[2024-01-14 13:34] LABS: ALLEN TEST PERFORMED; PH,ARTERIAL 7.42 pH (7.35-7.45)
[2024-01-14 13:35] LABS: BASE EXCESS ARTERIAL 2 mmol/L ((-2)-(+3)); BICARBONATE,ARTERIAL 27 mmol/L (21-28); O2 SATURATION ARTERIAL 95 % (94-98); PCO2 ARTERIAL 41 mmHg (35-48); PO2 ARTERIAL 75 mmHg (83-108)
[2024-01-14 14:31] LABS: CORONAVIRUS COVID-19 NAA NEGATIVE (NEGATIVE); INFLUENZA A NAA NEGATIVE (NEGATIVE); INFLUENZA B NAA NEGATIVE (NEGATIVE)
== END 2024-01-14 14:32 ==
LOC: DL.ED 11:03
DX: J18.9 Pneumonia, unspecified organism (principal); R41.82 Altered mental status, unspecified; E87.6 Hypokalemia; J44.9 Chronic obstructive pulmonary disease, unspecified; Z88.8 Allergy status to other drugs, medicaments and biological substances; Z79.899 Other long term (current) drug therapy; Z90.49 Acquired absence of other specified parts of digestive tract
CPT/HCPCS: 0240U; 31500; 36415; 36600; 51702; 70450; 70496; 70498; 71045; 72125; 80053; 80305; 80307; 81001; 82550; 82803; 82947; 83605; 83735; 84100; 84145; 84443; 84484; 85025; 85610; 85730; 86140; 87040; 87077; 87186; 93005; 93010; 96361; 96365; 96366; 96368; 96375; 99285; 99291; J0456; J0696; J1953; J3360; J3480; J7030; J7050; Q9967; J3490

== ENCOUNTER 2024-10-15 11:59 | Emergency (ER) | payer MEDICARE, MEDICAID ==
[~2024-10-15 11:59] MED LIST changes: -Ketorolac 30 MG/ML SDV IVPUSH ONE; -Ondansetron 4 MG/2 ML SDV IVPUSH ONE; +Sodium Chloride 0.9% 10 ML Syringe FLUSH PRN
[2024-10-15] MEDS: Albuterol/Ipratropium 3.0-0.5 MG/3 ML Neb Soln NEB ONE (12:23)
[2024-10-15 12:24] LABS: HEMATOCRIT 44.2 % (37.0-47.0); HEMOGLOBIN 13.1 g/dL (12.0-16.0); MEAN CORPUSCULAR HEMOGLOBIN 30.1 pg (27.0-34.0); MEAN CORPUSCULAR HGB CONC 29.6 g/dL (33.0-35.0); MEAN CORPUSCULAR VOLUME 101.6 fL (80-100); PLATELET COUNT,PLT 268 10^3/uL (150-450); RED BLOOD CELL COUNT 4.35 10^6/uL (4.2-5.4); WHITE BLOOD CELL COUNT,WBC 23.6 10^3/uL (5.0-10.0)
[2024-10-15 12:30] LABS: BASOPHILS PERCENT AUTO 0.2 % (0.0-1.0); EOSINOPHILS PERCENT AUTO 0.8 % (1.0-3.0); LYMPHOCYTES PERCENT AUTO 3.9 % (20.5-50.1); MONOCYTES PERCENT AUTO 6.2 % (2-8); NEUTROPHILS PERCENT AUTO 88.9 % (42.2-75.2)
[2024-10-15 12:39] LABS: PROTHROMBIN TIME 10.2 SEC (9.0-12.0)
[2024-10-15 12:46] LABS: ALBUMIN 3.1 g/dL (3.4-5.0); BILIRUBIN TOTAL 0.4 mg/dL (0.2-1.0); BUN/CREATININE RATIO 21.3 (No establ ref range); CALCIUM 8.3 mg/dL (8.5-10.1); CREATININE 0.89 mg/dL (0.55-1.02); EST CRCL DRUG DOSING (CG) 48.82 mL/min; MAGNESIUM 1.5 mg/dL (1.8-2.4); PROTEIN TOTAL,TP 6.2 g/dL (6.4-8.2)
[2024-10-15] MEDS: Iopamidol 612 MG/ML 100 ML Bottle IVPUSH ONE (12:54)
[2024-10-15 13:00] LABS: O2 DELIVERY DEVICE NON REBR MASK
[2024-10-15 13:01] LABS: BASE EXCESS VENOUS 2.3 mmol/l ((-2)-(+3)); BICARBONATE,VENOUS 28 mmol/l (19-25); O2 SATURATION VENOUS 89.5 % (60-80); PCO2 VENOUS 52 mmHg (41-51); PH,VENOUS 7.36 (7.31-7.41); PO2 VENOUS 65 mmHg (35-42)
[2024-10-15 13:06] LABS: APPEARANCE,URINE SLIGHTLY CLOUDY (CLEAR); BILIRUBIN,URINE NEGATIVE (NEGATIVE); COLOR,URINE YELLOW (YELLOW); GLUCOSE,URINE NEGATIVE (NEGATIVE); KETONES,URINE NEGATIVE (NEGATIVE); LEUKOCYTE ESTERASE,URINE NEGATIVE (NEGATIVE); NITRITE,URINE NEGATIVE (NEGATIVE); OCCULT BLOOD,URINE MODERATE (NEGATIVE); PROTEIN,URINE NEGATIVE (NEGATIVE); UROBILINOGEN,URINE 0.2 mg/dL (0.2-1.0)
[2024-10-15 13:06] LABS: BAND PERCENT MAN 9 %; EOSINOPHILS PERCENT MAN 2 % (1-3); LYMPHOCYTES PERCENT MAN 4 % (20-50); MONOCYTES PERCENT MAN 5 % (2-8); SEG NEUTROPHILS PERCENT MAN 80 % (42-75)
[2024-10-15 13:18] LABS: BACTERIA,URINE FEW /HPF (0-FEW/HPF); EPITHELIAL CELLS,URINE MODERATE /HPF (NOT SEEN); HYALINE CASTS,URINE FEW; MUCUS,URINE MODERATE /LPF (NOT SEEN)
[2024-10-15] MEDS: Sodium Chloride 0.9% 1,000 ML IV SCH (13:53)
[2024-10-15] MEDS: Levofloxacin/Dextrose 5%-Water 750 MG in Premix Bag 1 BAG IV ONE (13:55)
[2024-10-15] MEDS: Magnesium Sulfate/Water Premix 2 GM in Premix Bag 1 BAG IV ONE (15:40)
[2024-10-15] MEDS: methylPREDNISolone Sodium Succinate 40 MG/1 ML SDV IVPUSH ONE (15:45)
== END 2024-10-15 16:01 ==
LOC: DL.ED 11:59
DX: A41.9 Sepsis, unspecified organism (principal); R65.20 Severe sepsis without septic shock; J96.21 Acute and chronic respiratory failure with hypoxia; J18.9 Pneumonia, unspecified organism; J44.9 Chronic obstructive pulmonary disease, unspecified; D72.825 Bandemia; Z90.49 Acquired absence of other specified parts of digestive tract; Z88.8 Allergy status to other drugs, medicaments and biological substances; Z79.51 Long term (current) use of inhaled steroids; Z79.899 Other long term (current) drug therapy
CPT/HCPCS: 36415; 51702; 70450; 71260; 74177; 80053; 81001; 82803; 83605; 83735; 83880; 84484; 85025; 85610; 87040; 87428; 93005; 93010; 96365; 96366; 96368; 96375; 99285; J1956; J2919; J3475; J7030; Q9967; J7620-GY

== ENCOUNTER 2025-02-15 13:15 | Inpatient (IN) | payer MEDICARE, MEDICAID ==
[2025-02-15 13:46] LABS: O2 DELIVERY DEVICE NASAL CANNULA
[2025-02-15 13:48] LABS: PH,VENOUS 7.37 (7.31-7.41)
[2025-02-15 13:49] LABS: BASE EXCESS VENOUS 6.4 mmol/l ((-2)-(+3)); BICARBONATE,VENOUS 33 mmol/l (19-25); HEMATOCRIT 36.5 % (37.0-47.0); HEMOGLOBIN 11.3 g/dL (12.0-16.0); MEAN CORPUSCULAR HEMOGLOBIN 32.5 pg (27.0-34.0); MEAN CORPUSCULAR VOLUME 104.9 fL (80-100); O2 SATURATION VENOUS 84.7 % (60-80); PCO2 VENOUS 59 mmHg (41-51); PLATELET COUNT,PLT 271 10^3/uL (150-450); PO2 VENOUS 58 mmHg (35-42); RED BLOOD CELL COUNT 3.48 10^6/uL (4.2-5.4); WHITE BLOOD CELL COUNT,WBC 13.9 10^3/uL (5.0-10.0)
[2025-02-15] MEDS: Furosemide 40 MG/4 ML VIAL IVPUSH ONE ×2 (13:51→17:53)
[2025-02-15 13:52] LABS: BASOPHILS PERCENT AUTO 0.1 % (0.0-1.0); EOSINOPHILS PERCENT AUTO 3.2 % (1.0-3.0); LYMPHOCYTES PERCENT AUTO 4.4 % (20.5-50.1); MONOCYTES PERCENT AUTO 9.1 % (2-8); NEUTROPHILS PERCENT AUTO 83.2 % (42.2-75.2)
[2025-02-15 14:06] LABS: B-TYPE NATRIURETIC PEPTIDE,BNP 15 pg/ml (0-100)
[2025-02-15 14:10] LABS: A/G RATIO 1.3; ALANINE AMINOTRANSFERASE,ALT 35 U/L (14-59); ALKALINE PHOSPHATASE 75 U/L (46-116); ANION GAP 9.8 mEq/L (7-13); ASPARTATE AMNIOTRANSFERASE,AST 17 U/L (15-37); BILIRUBIN TOTAL 0.2 mg/dL (0.2-1.0); BLOOD UREA NITROGEN,BUN 15 mg/dL (7-18); BUN/CREATININE RATIO 28.8 (No establ ref range); CALCIUM 9.3 mg/dL (8.5-10.1); CARBON DIOXIDE,CO2 32 mmol/L (21-32); CHLORIDE,CL 100 mmol/L (98-107); CREATININE 0.52 mg/dL (0.55-1.02); GLUCOSE RANDOM 111 mg/dL (70-99); MAGNESIUM 1.7 mg/dL (1.8-2.4); POTASSIUM,K 3.8 mmol/L (3.5-5.1); SODIUM,NA 138 mmol/L (136-145)
[2025-02-15 14:11] LABS: ESTIMATED GFR 104 mL/min (>=60); LACTIC ACID 1.9 mmol/L (0.4-2.0)
[2025-02-15 14:12] LABS: BAND PERCENT MAN 3 %; EOSINOPHILS PERCENT MAN 4 % (1-3); LYMPHOCYTES PERCENT MAN 3 % (20-50); MONOCYTES PERCENT MAN 9 % (2-8); SEG NEUTROPHILS PERCENT MAN 81 % (42-75)
[2025-02-15] MEDS ORDERED: Bisacodyl 10 MG Supp RECTAL PRN (17:11)
[2025-02-15] MEDS ORDERED: Magnesium Hydroxide 400 MG/5 ML Susp 30 ML Cup PO PRN (17:11)
[2025-02-15 17:31] LABS: C-REACTIVE PROTEIN 3.95 ng/dL (<=0.50)
[2025-02-15] MEDS ORDERED: 50% Dextrose in Water 50 ML Syringe IVPUSH PRN (17:37)
[2025-02-15] MEDS ORDERED: Glucagon,Human Recombinant 1 MG Vial IM PRN (17:37)
[2025-02-15] MEDS: Magnesium Sulfate 2 GM/50 mL 2 GM in Premix Bag 1 BAG IV ONE ×2 (17:51→19:39)
[2025-02-15] MEDS: LORazepam 2 MG/ML SDV IVPUSH ONE (18:00)
[2025-02-15] MEDS: Enoxaparin 40 MG/0.4 ML Syringe SUBCUT SCH (18:00)
[2025-02-15] MEDS ORDERED: Non-Formulary Medication 1 Each (Baclofen [Baclofen] 5 MG Tablet) PO SCH (21:00)
[2025-02-15] MEDS: Cefepime 1 GM Vial IVPUSH SCH (21:51)
[2025-02-15] MEDS: Furosemide 100 MG in Sodium Chloride 0.9% 90 ML IV SCH (21:51)
[2025-02-15] MEDS: OLANZapine 5 MG Tab PO SCH (21:52)
[2025-02-15] MEDS: Acetaminophen 325 MG Tab PO PRN (21:53)
[2025-02-15] MEDS: Doxycycline Monohydrate 100 MG Cap PO SCH (21:53)
[2025-02-15] MEDS: ClonazePAM 0.5 MG Tab PO SCH (21:55)
[2025-02-15] MEDS: Lactulose Soln 10 GM/15 ML 30 ML UD Cup PO SCH (21:55)
[2025-02-15] MEDS: Baclofen 10 MG Tab PO SCH (21:55)
[2025-02-16 06:45] LABS: ANION GAP 7.6 mEq/L (7-13); CREATININE 0.49 mg/dL (0.55-1.02); EST CRCL DRUG DOSING (CG) 84.41 mL/min; MAGNESIUM 2.2 mg/dL (1.8-2.4); POTASSIUM,K 3.6 mmol/L (3.5-5.1)
[2025-02-16 07:24] LABS: EOSINOPHILS PERCENT AUTO 2.2 % (1.0-3.0); HEMATOCRIT 39.6 % (37.0-47.0); HEMOGLOBIN 11.9 g/dL (12.0-16.0); LYMPHOCYTES PERCENT AUTO 9.9 % (20.5-50.1); MEAN CORPUSCULAR HEMOGLOBIN 31.6 pg (27.0-34.0); MEAN CORPUSCULAR HGB CONC 30.1 g/dL (33.0-35.0); NEUTROPHILS PERCENT AUTO 77.6 % (42.2-75.2); PLATELET COUNT,PLT 263 10^3/uL (150-450); RED BLOOD CELL COUNT 3.77 10^6/uL (4.2-5.4)
[2025-02-16 07:26] LABS: BASOPHILS PERCENT AUTO 0.3 % (0.0-1.0)
[2025-02-16] MEDS: Insulin Lispro 100 Units/ML 3 ML Vial SUBCUT SCH (07:30)
[2025-02-16] MEDS: FLUoxetine 10 MG Cap PO SCH ×2 (07:57→08:26)
[2025-02-16] MEDS: Potassium Chloride 10 MEQ Tab.ER PO SCH (08:11)
[2025-02-16] MEDS: Pantoprazole 40 MG Tab.CR PO SCH (08:11)
[2025-02-16] MEDS: Aspirin 81 MG Tab.Chew PO SCH (08:11)
[2025-02-16] MEDS: levETIRAcetam 500 MG Tab PO SCH (08:12)
[2025-02-16] MEDS: predniSONE 10 MG Tab PO SCH (08:12)
[2025-02-16] MEDS: Docusate Sodium 100 MG Cap PO SCH (08:13)
[2025-02-16] MEDS: Polyethylene Glycol 3350 Powder 17 GM Packet PO SCH (08:13)
[2025-02-16] MEDS: Sulfamethoxazole/Trimethoprim 200-40 MG/5 ML Susp 20 ML Cup PO SCH (08:13)
[2025-02-16] MEDS: LORazepam 2 MG/ML SDV IVPUSH ONE ×2 (11:27→19:34)
[2025-02-16] MEDS: Furosemide 100 MG/10 ML SDV IVPUSH ONE (11:27)
[2025-02-16] MEDS: Menthol 85 GM Jar TOP SCH (20:14)
[2025-02-17 06:26] LABS: HEMATOCRIT 40.4 % (37.0-47.0); HEMOGLOBIN 12.4 g/dL (12.0-16.0); MEAN CORPUSCULAR HEMOGLOBIN 32.2 pg (27.0-34.0); MEAN CORPUSCULAR HGB CONC 30.7 g/dL (33.0-35.0); MEAN CORPUSCULAR VOLUME 104.9 fL (80-100); PLATELET COUNT,PLT 279 10^3/uL (150-450); RED BLOOD CELL COUNT 3.85 10^6/uL (4.2-5.4); WHITE BLOOD CELL COUNT,WBC 11.7 10^3/uL (5.0-10.0)
[2025-02-17 06:33] LABS: BASOPHILS PERCENT AUTO 0.3 % (0.0-1.0); EOSINOPHILS PERCENT AUTO 1.2 % (1.0-3.0); LYMPHOCYTES PERCENT AUTO 11.8 % (20.5-50.1); NEUTROPHILS PERCENT AUTO 72.7 % (42.2-75.2)
[2025-02-17 06:34] LABS: ANION GAP 6.7 mEq/L (7-13); CALCIUM 9.6 mg/dL (8.5-10.1); CREATININE 0.59 mg/dL (0.55-1.02); EST CRCL DRUG DOSING (CG) 70.1 mL/min; MAGNESIUM 1.9 mg/dL (1.8-2.4); POTASSIUM,K 3.7 mmol/L (3.5-5.1)
[2025-02-17 07:07] LABS: BAND PERCENT MAN 4 %; EOSINOPHILS PERCENT MAN 1 % (1-3); LYMPHOCYTES PERCENT MAN 8 % (20-50); MONOCYTES PERCENT MAN 8 % (2-8); SEG NEUTROPHILS PERCENT MAN 79 % (42-75)
[2025-02-17] MEDS: methylPREDNISolone Sodium Succinate 40 MG/1 ML SDV IVPUSH ONE (08:23)
[2025-02-17 08:32] LABS: B-TYPE NATRIURETIC PEPTIDE,BNP 11 pg/ml (0-100)
[2025-02-17 08:36] LABS: LACTIC ACID 0.8 mmol/L (0.4-2.0)
[2025-02-17 09:03] LABS: O2 DELIVERY DEVICE SIMPLE MASK
[2025-02-17 09:05] LABS: ALLEN TEST POSITIVE; BASE EXCESS ARTERIAL 10 mmol/L ((-2)-(+3)); BICARBONATE,ARTERIAL 35.8 mmol/L (22-26); O2 SATURATION ARTERIAL 90 % (95-100); PCO2 ARTERIAL 57 mmHg (35-45); PH,ARTERIAL 7.41 (7.35-7.45); PO2 ARTERIAL 63 mmHg (70-100)
[2025-02-17] MEDS: Furosemide 40 MG/4 ML VIAL IVPUSH ONE (09:32)
[2025-02-17] MEDS: Iopamidol 755 Mg/ML 100 ML Bottle IVPUSH ONE (13:07)
[2025-02-17] MEDS: Albuterol/Ipratropium 3.0-0.5 MG/3 ML Neb Soln NEB SCH (15:25)
[2025-02-18] MEDS: Sodium Chloride 0.9% 10 ML Syringe FLUSH PRN (05:40)
[2025-02-18 06:39] LABS: HEMATOCRIT 36.6 % (37.0-47.0); HEMOGLOBIN 12.1 g/dL (12.0-16.0); MEAN CORPUSCULAR HEMOGLOBIN 34.2 pg (27.0-34.0); MEAN CORPUSCULAR HGB CONC 33.1 g/dL (33.0-35.0); MEAN CORPUSCULAR VOLUME 103.4 fL (80-100); PLATELET COUNT,PLT 276 10^3/uL (150-450); RED BLOOD CELL COUNT 3.54 10^6/uL (4.2-5.4); WHITE BLOOD CELL COUNT,WBC 7.8 10^3/uL (5.0-10.0)
[2025-02-18 06:52] LABS: BASOPHILS PERCENT AUTO 0.4 % (0.0-1.0); EOSINOPHILS PERCENT AUTO 0.1 % (1.0-3.0); LYMPHOCYTES PERCENT AUTO 18.9 % (20.5-50.1); MONOCYTES PERCENT AUTO 19.7 % (2-8); NEUTROPHILS PERCENT AUTO 60.9 % (42.2-75.2)
[2025-02-18 06:57] LABS: ANION GAP 13.6 mEq/L (7-13); CALCIUM 9.7 mg/dL (8.5-10.1); CREATININE 0.74 mg/dL (0.55-1.02); EST CRCL DRUG DOSING (CG) 55.89 mL/min; POTASSIUM,K 3.6 mmol/L (3.5-5.1)
[2025-02-18 07:20] LABS: LYMPHOCYTES PERCENT MAN 17 % (20-50); MONOCYTES PERCENT MAN 15 % (2-8); SEG NEUTROPHILS PERCENT MAN 68 % (42-75)
[2025-02-18] MEDS ORDERED: Bisacodyl 10 MG Supp RECTAL SCH (09:00)
[2025-02-18] MEDS: Cefepime 2 GM Vial IV SCH (09:38)
[2025-02-18] MEDS: methylPREDNISolone Sodium Succinate 40 MG/1 ML SDV IVPUSH SCH (11:51)
[2025-02-18] MEDS: Metoprolol Tartrate 5 MG/5 ML SDV IVPUSH SCH (12:01)
[2025-02-18] MEDS: FLUTICASONE INH SCH (18:32)
[2025-02-18] MEDS: VILANTEROL INH SCH (18:32)
[2025-02-19 05:27] LABS: BASOPHILS PERCENT AUTO 0.2 % (0.0-1.0); HEMATOCRIT 35.6 % (37.0-47.0); HEMOGLOBIN 10.8 g/dL (12.0-16.0); LYMPHOCYTES PERCENT AUTO 10.9 % (20.5-50.1); MEAN CORPUSCULAR HEMOGLOBIN 31.6 pg (27.0-34.0); MEAN CORPUSCULAR HGB CONC 30.3 g/dL (33.0-35.0); MEAN CORPUSCULAR VOLUME 104.1 fL (80-100); MONOCYTES PERCENT AUTO 6.5 % (2-8); NEUTROPHILS PERCENT AUTO 82.4 % (42.2-75.2); PLATELET COUNT,PLT 272 10^3/uL (150-450); RED BLOOD CELL COUNT 3.42 10^6/uL (4.2-5.4); WHITE BLOOD CELL COUNT,WBC 9.3 10^3/uL (5.0-10.0)
[2025-02-19 05:37] LABS: ANION GAP 9.6 mEq/L (7-13); CALCIUM 9.8 mg/dL (8.5-10.1); CREATININE 0.66 mg/dL (0.55-1.02); EST CRCL DRUG DOSING (CG) 62.67 mL/min; POTASSIUM,K 4.6 mmol/L (3.5-5.1)
[2025-02-19] MEDS: Furosemide 40 MG Tab PO SCH (09:02)
[2025-02-19] MEDS: Metoprolol Tartrate 25 MG Tab PO SCH (21:29)
[2025-02-20 10:15] LABS: HEMATOCRIT 37.4 % (37.0-47.0); HEMOGLOBIN 10.7 g/dL (12.0-16.0); MEAN CORPUSCULAR HEMOGLOBIN 30.1 pg (27.0-34.0); MEAN CORPUSCULAR HGB CONC 28.6 g/dL (33.0-35.0); MEAN CORPUSCULAR VOLUME 105.1 fL (80-100); PLATELET COUNT,PLT 291 10^3/uL (150-450); RED BLOOD CELL COUNT 3.56 10^6/uL (4.2-5.4); WHITE BLOOD CELL COUNT,WBC 12.2 10^3/uL (5.0-10.0)
[2025-02-20 10:18] LABS: BASOPHILS PERCENT AUTO 0.2 % (0.0-1.0); MONOCYTES PERCENT AUTO 3.2 % (2-8); NEUTROPHILS PERCENT AUTO 90.6 % (42.2-75.2)
[2025-02-20] MEDS: Furosemide 20 MG/2 ML VIAL IVPUSH ONE (10:20)
[2025-02-20 10:26] LABS: ANION GAP 12.7 mEq/L (7-13); CALCIUM 10.3 mg/dL (8.5-10.1); CREATININE 0.69 mg/dL (0.55-1.02); EST CRCL DRUG DOSING (CG) 59.94 mL/min; POTASSIUM,K 4.7 mmol/L (3.5-5.1)
[2025-02-20 11:05] LABS: BAND PERCENT MAN 6 %; LYMPHOCYTES PERCENT MAN 10 % (20-50); MONOCYTES PERCENT MAN 2 % (2-8); SEG NEUTROPHILS PERCENT MAN 82 % (42-75)
[2025-02-20] MEDS: Oxymetazoline 0.05% Nasal Spray 30 ML Bottle NASBOTH ONE (16:45)
[2025-02-21 08:31] LABS: HEMATOCRIT 37.8 % (37.0-47.0); HEMOGLOBIN 11.5 g/dL (12.0-16.0); MEAN CORPUSCULAR HEMOGLOBIN 31.2 pg (27.0-34.0); MEAN CORPUSCULAR HGB CONC 30.4 g/dL (33.0-35.0); MEAN CORPUSCULAR VOLUME 102.4 fL (80-100); PLATELET COUNT,PLT 301 10^3/uL (150-450); RED BLOOD CELL COUNT 3.69 10^6/uL (4.2-5.4); WHITE BLOOD CELL COUNT,WBC 11.6 10^3/uL (5.0-10.0)
[2025-02-21 08:32] LABS: BASOPHILS PERCENT AUTO 0.2 % (0.0-1.0); LYMPHOCYTES PERCENT AUTO 8.8 % (20.5-50.1); MONOCYTES PERCENT AUTO 4.5 % (2-8); NEUTROPHILS PERCENT AUTO 86.5 % (42.2-75.2)
[2025-02-21 08:48] LABS: ANION GAP 13.8 mEq/L (7-13); CALCIUM 10.5 mg/dL (8.5-10.1); CREATININE 0.52 mg/dL (0.55-1.02); EST CRCL DRUG DOSING (CG) 79.54 mL/min; POTASSIUM,K 4.8 mmol/L (3.5-5.1)
[2025-02-21 09:02] LABS: LYMPHOCYTES PERCENT MAN 8 % (20-50); MONOCYTES PERCENT MAN 8 % (2-8); SEG NEUTROPHILS PERCENT MAN 84 % (42-75)
[2025-02-21] MEDS: predniSONE 20 MG Tab PO SCH (10:04)
== END 2025-02-21 11:20 | DRG 189 ==
LOC: DL.ED 13:15 → DL.MS 15:37 → DL.ED 15:48 → DL.MS 15:50 → UNDOADMOB 15:50 → EEVIPCON 02-16 12:36 → OBSVTOIN 02-16 12:36 → INTOOBSV 02-16 12:36 → OBSVTOIN 02-16 14:59 → UNDODISIN 02-21 11:20
PROVIDERS: ADMIT Internal Medicine; ATTEND Internal Medicine
PROC: 05HY33Z Insertion of Infusion Device into Upper Vein, Percutaneous Approach (ICD-10-PCS; principal; 2025-02-15)
PROC: 5A09357 Assistance with Respiratory Ventilation, Less than 24 Consecutive Hours, Continuous Positive Airway Pressure (ICD-10-PCS; principal; 2025-02-15)
DX: J96.21 Acute and chronic respiratory failure with hypoxia (principal); J18.9 Pneumonia, unspecified organism; J44.1 Chronic obstructive pulmonary disease with (acute) exacerbation; I50.9 Heart failure, unspecified; Z66 Do not resuscitate; H54.7 Unspecified visual loss; E78.00 Pure hypercholesterolemia, unspecified; K21.9 Gastro-esophageal reflux disease without esophagitis; K27.9 Peptic ulcer, site unspecified, unspecified as acute or chronic, without hemorrhage or perforation; M19.90 Unspecified osteoarthritis, unspecified site; E83.42 Hypomagnesemia; M54.9 Dorsalgia, unspecified; G89.29 Other chronic pain; G40.909 Epilepsy, unspecified, not intractable, without status epilepticus; F41.9 Anxiety disorder, unspecified; F32.A Depression, unspecified; F20.9 Schizophrenia, unspecified; E11.9 Type 2 diabetes mellitus without complications; Z86.16 Personal history of COVID-19; Z90.49 Acquired absence of other specified parts of digestive tract; Z88.8 Allergy status to other drugs, medicaments and biological substances; Z98.891 History of uterine scar from previous surgery; Z79.899 Other long term (current) drug therapy; Z98.890 Other specified postprocedural states; Z79.52 Long term (current) use of systemic steroids; Z79.82 Long term (current) use of aspirin; Z86.73 Personal history of transient ischemic attack (TIA), and cerebral infarction without residual deficits
CPT/HCPCS: 36415; 36556; 36600; 71045; 71275; 80048; 80053; 82803; 82947; 83605; 83735; 83880; 84145; 84484; 85025; 85610; 86140; 87428-QW; 87641; 93005; 93306; 94640; 94660; 96365; 96366; 96372; 96374; 96375; 96376; 99211; 99223; 99233; 99239; 99285; 99285-25; 99291; A9270-GY; G0378; J0692; J1650; J1815-GY; J1938; J2060; J2919; J3475; J3490; J7512; Q9967